=== PATIENT | female | born 1950 | race Caucasian/White ===

== ENCOUNTER 2019-08-28 12:53 | Inpatient (IN) | payer MEDICARE, OTHER, SELFPAY ==
[2019-08-28] VITALS (10 sets, daily range): BP systolic 130–163; BP diastolic 79–100; PULSE 50–178; RESP 13–22; TEMP 36.2–36.8; O2SAT 77–99; BMI 31.4
--- NOTE | ~2019-08-28 | XR_ITS ---
EXAMINATION: XR chest 2V DATE: 08/28/2019 13:57 INDICATION: Shortness of breath TECHNIQUE: AP and lateral views of the chest are obtained. COMPARISON: None available FINDINGS: The lungs are free of acute opacities. There is no pleural effusion or pneumothorax. The ca rdiomediastinal silhouette is normal. There is moderate thoracic spondylosis. IMPRESSION: 1. No acute cardiopulmonary abnormality. Reviewed, dictated and finalized at location A. AEOLOGY PROFESSOR
--- NOTE | ~2019-08-28 | XR_ITS ---
EXAMINATION: XR sinus min 3V DATE: 08/29/2019 13:23 INDICATION: Head congestion. TECHNIQUE: 5 views of the paranasal sinuses were obtained. COMPARISON: None. FINDINGS: Bone alignment is normal. No fracture. The paranasal sinuses are clear. IMPRESSION: 1. Normal paranasal sinuses. Reviewed, dictated and finalized at location A. L WIRE TECHNICIAN
--- NOTE | 2019-08-28 13:02 | ED.GENADULT ---
HPI - General Adult General Chief complaint: Unspecified Stated complaint: New onset afib with rvr Time Seen by Provider: 08/28/19 13:00 Source: patient Mode of arrival: EMS Limitations: no limitations History of Present Illness HPI narrative: A 68 y/o female presents to the ED, via EMS, with c/o generalized weakness. Pt states that she has been having frequent spells of generalized weakness, fatigue, and dizziness every week for a long time. Today the pt notes that the spell started at 1000 and has been constant since, so she decided to come to the ED. She adds that she has had a cold since the end of July. Pt reports cough, congestion, and rhinorrhea, but denies fever and decreased food or liquid intake. She states that she recently had a stress test done, and it came back normal. MD complaint: Generalized weakness Onset (ago): unknown Severity: similar to prior episodes Associated symptoms: cough and other (Fatique, dizziness, congestion, rhinorrhea) Related Data Home Medications Medication Instructions Recorded Confirmed cholecalciferol (vitamin D3) 25 25 mcg PO DAILY 08/28/19 mcg (1,000 unit) capsule levothyroxine 88 mcg tablet 88 mcg PO DAILY 08/28/19 piroxicam 20 mg capsule 20 mg PO DAILY 08/28/19 Allergies Allergy/AdvReac Type Severity Reaction Status Date / Time No Known Allergies Allergy Verified 08/28/19 13:14 Review of Systems Review of Systems: All systems reviewed & are unremarkable except as noted in HPI and below Constitutional: Constitutional: Reports fatigue, Denies fever(s), Reports weakness (Generalized) and Denies other (Decreased food or liquid intake) ENT: Reports nasal congestion and Reports nasal discharge Respiratory: Respiratory: Reports cough Neurologic: Reports dizziness PMFSH Past Medical History Medical History (Updated 08/28/19 @ 15:33 by Zackery Barnes MD) Arthritis Asthma HTN (hypertension) Hypothyroid Umbilical hernia Surgical History Surgical History (Updated 08/28/19 @ 13:16 by Cristina Sales) History of cholecystectomy History of knee replacement, total History of tubal ligation History of ventral hernia repair Family History Family History Father Family history of glaucoma, Onset Age: 46 Grandparent Family history of glaucoma Family history of lung cancer Sibling Family history of glaucoma Family history of malignant neoplasm Mother Family history of malignant melanoma, Onset Age: 72 Social History Social History Smoking status: Never smoker Alcohol intake: never Exam Const: General: healthy appearing and no acute distress Nutritional Appearance: well nourished HENMT: Mouth: Yes lip normal and Yes dry mucous membranes Eyes: Conjunctivae: conjunctivae normal Pupils: Equal, round and reactive pupils present Resp: Effort & Inspection: normal respiratory effort Auscultation: clear to auscultation bilaterally Cardio: Rate: tachycardic Rhythm: abnormal rhythm irregularly irregular GI: GI Palp: Yes Soft to palpation and No Tenderness to palpation present (GI) Auscultation: normal bowel sounds Back/Spine/Pelvis: Back: other (Full ROM) Skin: General skin exam: normal color, dry skin and other (Warm) Neuro: General: patient oriented x3 (Alert) Speech: normal speech Extrem: General: full ROM Psych: Mental Status: mental status grossly normal Affect: normal affect Course Consultations Consultation #1: Discussed case with hospitalist, Dr. Gibbons. They will admit the patient if cardiology declines. Date: 08/28/19 Time: 14:15 Consultation #2: Discussed case with Dottie Armstrong NP for cardiology. They recommend the patient be admitted to the IMU under the hospitalist. Date: 08/28/19 Time: 14:19 Vital Signs Vital signs: Vital Signs Temperature 36.8 C 08/28/19 12:51 Pulse Rate 152 H 08/28/19 12:51
--- NOTE | 2019-08-28 13:07 | ECG_ITS ---
Measurements Intervals [place] Rate: 160 P: MA: 0 QRS: -10 QRSD: 108 T: 56 QT: 310 QTc: 506 Interpretive Statements ATRIAL FIBRILLATION WITH RAPID VENTRICULAR RESPONSE VENTRICULAR PREMATURE COMPLEXES INCOMPLETE RIGHT BUNDLE BRANCH BLOCK BORDERLINE ST-T WAVE ABNORMALITY- LATERAL LEADS BASELINE WANDER- I, II ABNORMAL ECG Electronically Signed On 08-28-2019 13:18:26 DOCK WORKER by Bhavik Damian D.O.
[2019-08-28] MEDS: SODIUM CHLORIDE 0.9% IV 1,000 ML 999 ML IV CONT (13:15)
[2019-08-28 13:18] LABS: Basophils Absolute Auto 0.1 K/mm3 (0.0-0.1); Basophils Percent Auto 0.8 % (0.2-1.2); Eosinophils Absolute Auto 0.1 K/mm3 (0-0.3); Eosinophils Percent Auto 1.5 % (0-4.4); Hematocrit 42.9 % (37.0-47.0); Hemoglobin 13.6 g/dL (12.0-15.0); Immature Granulocyte Absolute 0.01 K/mm3 (0.00-0.031); Immature Granulocyte Percent A 0.2 % (0-0.5); Lymphocytes Absolute Auto 1.72 K/mm3 (0.9-3.2); Lymphocytes Percent Auto 28.7 % (18.3-44.2); Mean Corpuscular HGB Conc 31.7 g/dl (32-36); Mean Corpuscular Hemoglobin 28.4 pg (26-34); Mean Corpuscular Volume 89.6 fl (80-100); Mean Platelet Volume 9.2 fl (7.4-10.4); Monocytes Absolute Auto 0.5 K/mm3 (0.1-0.6); Monocytes Percent Auto 8.3 % (2.6-8.5); Neutrophils Absolute Auto 3.6 K/mm3 (1.3-6.7); Neutrophils Percent Auto 60.5 % (45.5-73.1); Platelet Count Result 230 k/mm3 (150-375); Red Blood Count 4.79 M/mm3 (4.2-5.4); Red Cell Distribution Width 13.3 % (11.5-14.5)
[2019-08-28 13:27] LABS: INR 0.9; Prothrombin Time 12.2 Seconds (11.1-14.7)
[2019-08-28 13:28] LABS: Partial Thromboplastin Time 26.4 SECONDS (22.3-36.8)
[2019-08-28 13:31] LABS: Blood Urea Nitrogen 16 mg/dL (7-17); Calcium 9.2 mg/dL (8.4-10.2); Carbon Dioxide 25 mmol/L (22-30); Chloride 108 mmol/L (98-107); Estimated CRCL calculation 118 ml/min; Estimated Glomerular Filt Rate > 60; Glucose 111 mg/dL (65-105); Potassium 3.9 mmol/L (3.4-5.0); Sodium 142 mmol/L (137-145)
[2019-08-28 13:43] LABS: NT Pro B Type Natriuretic Pept 243 PG/ML (5-100); Troponin I < 0.012 ng/mL (0.000-0.034)
--- NOTE | 2019-08-28 14:19 | PC.NURSE ---
Diltiazem 10mg given IVP as ordered by EDP
[2019-08-28] MEDS: ENOXAPARIN 100 MG/ML SYRINGE SUB-Q ×2 (14:45→21:02)
--- NOTE | 2019-08-28 16:04 | ADMGEN ---
This patient, Liz Overton, was admitted to IMU Room 201-01. Patient/family oriented to hospital policies and general routines including ID bracelet, bed and alarms, visiting hours, pain management, procedures, bathroom and other care routines, personal items, smoking policy, room service/diet, and visiting hours. Valuables list has been completed. Information on how to activate the Rapid Response Team has been discussed. Patient/Family are encouraged to report perceived risks to care and to ask questions if they do not understand what they are told or what they should do.
--- NOTE | 2019-08-28 17:01 | PM.CNCAR ---
Assessment and Plan Assessment and plan (1) Atrial fibrillation with RVR: Code(s): I48.91 - Unspecified atrial fibrillation Status: Acute Assessment and Plan: She has a chads Vasc score of 3 given her age, gender and hypertension. Full anticoagulation is recommended. For now will start her on enoxaparin 1 milligram/kilogram subcu q.12 hours. She is in atrial fibrillation with rapid ventricular response at present. This likely is the cause of her symptoms. She is having these episodes on a daily basis which raises the concern of longer duration of being in her arrhythmia. Therefore I think rate control strategy for tonight should be implemented and therefore will continue her Cardizem but will increase her drip to 15 mg per hour. Will keep her NPO after midnight in case a SHON guided cardioversion needs to be performed tomorrow. She likely will need antiarrhythmic therapy long-term. Will continue rule out myocardial infarction with serial cardiac enzymes. Will check a 2D echocardiogram with Doppler. Outpatient stress test to be performed (2) Hypertension: Code(s): I10 - Essential (primary) hypertension Status: Acute (3) Obstructive sleep apnea: Code(s): G47.33 - Obstructive sleep apnea (adult) (pediatric) Status: Acute Assessment and Plan: Very important that she home as her sleep apnea treated. As an outpatient should set her up with pulmonology or sleep medicine except for re-evaluation and treatment (4) Hypothyroid: Code(s): E03.9 - Hypothyroidism, unspecified Status: Acute Assessment and Plan: On replacement History of Present Illness History of Present Illness Consult date/time: 08/28/19 17:01 Requesting physician: Zackery Barnes MD Consult reason: atrial fibrillation Reason For Visit: a-fib with rvr Narrative: Date of service 08/28/2019: History: Patient is a very pleasant 68-year-old female who has had intermittent spells weakness and dizziness and extreme tiredness over the past year or so. At 1st it would occur about 1 time a month or couple times every few weeks but more recently it is occurring essentially on a daily basis. She does not feel palpitations. She does have a sensation of chest pressure and heaviness whenever she has these feeling. She did have a stress test last year which was reportedly normal per patient. Because of the symptoms she did go to see her primary care physician today. She was found to be in atrial fibrillation with rapid ventricular response and sent to the emergency department for further workup and evaluation. She has been started on diltiazem drip and her heart rate is better but she still feels a little lightheaded/foggy. She otherwise denies any syncope, paroxysmal nocturnal dyspnea, orthopnea, edema shortness of breath or palpitations. She does have a history of hypertension, sleep apnea which she does not use her CPAP often because the mask does not fit her. She also has hypothyroidism hyperlipidemia and arthritis. She has never had a stroke and is not diabetic Review of Systems Review of Systems: All systems reviewed & are unremarkable except as noted in HPI and below Constitutional: Constitutional: Reports weakness Eyes: Eyes: Denies blurry vision ENT: Denies epistaxis Cardiovascular: Cardiovascular: Reports chest pain Respiratory: Respiratory: Denies dyspnea Gastrointestinal: Gastrointestinal: Denies abdominal pain Genitourinary: Genitourinary: Denies flank pain Musculoskeletal: Musculoskeletal: Denies neck pain Comments: Osteoarthritis Integumentary/Breasts: Skin/Breast: Denies dry skin Neurologic: Denies headache(s) Psychiatric: Psychiatric: Denies anxiety Endocrine: Endocrine: Reports fatigue Hematologic/Lymphatic: Hematologic/Lymphatic: Denies easy bleeding Allergic/Immunologic: Allergic/Immunologic: Denies lip swelling PMFSH Past Medical History Medical History (Reviewed
--- NOTE | 2019-08-28 17:44 | ECG_ITS ---
Measurements Intervals [place] Rate: 66 P: 62 [place]: 171 QRS: -41 QRSD: 111 T: 58 QT: 420 QTc: 441 Interpretive Statements SINUS RHYTHM LEFT AXIS DEVIATION INCOMPLETE LEFT BUNDLE BRANCH BLOCK DELAYED PRECORDIAL R/S TRANSITION BORDERLINE ST-T WAVE ABNORMALITY- ANTERIOR LEADS BORDERLINE ECG Electronically Signed On 08-29-2019 12:31:17 MICROFILM DUPLICATING UNIT SUPERVISOR by Bhavik Damian D.O.
[2019-08-28] MEDS: ACETAMINOPHEN 325 MG TABLET 650 MG PO (20:15)
--- NOTE | 2019-08-28 21:31 | PM.IMHP ---
H&P: HPI History of Present Illness Chief complaint: a-fib with rvr Narrative: Liz Overton is a 68 year old female who has been complaining of having some generalized weakness. She is having frequent spells of feeling weak, fatigued and dizziness. The patient stated she felt like she has had a cold since July. She has had a cough congestion and runny nose. But no fever. Patient stated that she had a stress test back in the fall which she reports as normal. She stated that she went to her primary care doctor's office today around noon due to her symptoms. An EKG was performed in the office and the patient was sent directly over to the emergency room here. Patient was found to be in AFib RVR with a new onset. The patient was started on Cardizem drip. Cardiology has seen the patient. Patient had chads vascular score of 3 and was started on therapeutic doses of subcu Lovenox. Patient has since converted to normal sinus rhythm. See cardiology notes please. Patient stated that she is in a sinus rhythm she feels much better. Date of service is 08/28/2019. Review of Systems Review of Systems: All systems reviewed & are unremarkable except as noted in HPI and below Constitutional: Constitutional: Reports as per HPI and Reports no additional constitutional complaints Eyes: Eyes: Reports as per HPI and Reports no additional eye complaints ENT: Reports system reviewed and no additional complaints, except as documented and Reports Normal hearing present Cardiovascular: Cardiovascular: Reports no additional cardiovascular complaints Respiratory: Respiratory: Reports no additional respiratory complaints and Reports no additional respiratory complaints Gastrointestinal: Gastrointestinal: Reports as per HPI and Reports no additional gastrointestinal complaints Musculoskeletal: Musculoskeletal: Reports no additional musculoskeletal complaints Integumentary/Breasts: Skin/Breast: Reports system reviewed and no additional complaints, except as docu and Reports as per HPI Neurologic: Reports system reviewed and no additional complaints, except as documented, Reports as per HPI and Reports Normal hearing present Psychiatric: Psychiatric: Reports no additional psychiatric complaints and Reports as per HPI Endocrine: Endocrine: Reports no additional endocrine complaints Hematologic/Lymphatic: Hematologic/Lymphatic: Reports no additional hematologic/lymphatic complaints Allergic/Immunologic: Allergic/Immunologic: Reports no additional allergic/immunologic complaints [facility] Past Medical History Medical History (Updated 08/28/19 @ 21:40 by Quita Montenegro NP) Arthritis Asthma HTN (hypertension) Hypertension Hypothyroid Obstructive sleep apnea Umbilical hernia Surgical History Surgical History (Updated 08/28/19 @ 21:40 by Quita Montenegro NP) History of cholecystectomy History of knee replacement, total On the right History of tubal ligation History of ventral hernia repair Family History Family History (Updated 08/28/19 @ 21:42 by Quita Montenegro NP) Father Motor vehicle accident He in a motor vehicle accident at the age of 46. Hypertension Grandparent Family history of glaucoma Family history of lung cancer Sibling Breast cancer Diabetes mellitus Mother Family history of malignant melanoma, Onset Age: 72 Social History Social History (Updated 08/28/19 @ 21:43 by Quita Montenegro NP) Social History: She has 3 children and her son Conner is a durable power tax associate attorney. She desires to be a full code. She lives with her who is about 10 years older than her. She is a lifelong nonsmoker and does not drink or use illicit drugs. Patient is retired from [employer]. Smoking status: Never smoker Alcohol intake: never Substance use: never Living arrangements: alone Occupation/Education: retired Gender identity (if verbalized by the
[2019-08-29] VITALS (20 sets, daily range): BP systolic 118–152; BP diastolic 64–85; PULSE 48–88; RESP 12–22; TEMP 35.6–36.6; O2SAT 93–100
--- NOTE | 2019-08-29 | ECHO_ITS ---
Patient Info Name: Liz Overton Age: 68 years : 1950 Gender: Female Ht: 70 in Wt: 219 lbs BSA: 2.24 m2 HR: 55 bpm BP: 126 / 71 mmHg Heart Rhythm: Sinus Rhythm Technical Quality: Good Exam Date: 08/29/2019 10:33 AM Exam Location: [facility] Pulmonary Patient Status: Inpatient Admit Date: 08/28/2019 Staff Ordering Physician: Thien Rascon MD Business Planning Director: Feroz Dao, SATNAMCS, RT Attending Provider: Anita Paul MD Referring Physician: Tarah FRANK; Exam Type: CA echo doppler color flow Study Info Indications I48.0 - Paroxysmal atrial fibrillation Complete two-dimensional, color flow and Doppler transthoracic echocardiogram is performed. Summary 1. Left ventricular systolic function is normal, estimated at 55-60%. 2. The left ventricular diastolic function is grade I diastolic dysfunction. 3. Left atrial chamber dimension is mildly enlarged. 4. Trivial aortic valve regurgitation otherwise no significant valvular abnormalities. Left Ventricle Left ventricular chamber dimension is normal. Left ventricular systolic function is normal, estimated at 55-60%. The left ventricular diastolic function is grade I diastolic dysfunction. Right Ventricle Right ventricular chamber dimension is normal. Left Atria Left atrial chamber dimension is mildly enlarged. Right Atria Right atrial chamber dimension is normal. Aortic Valve The aortic valve is trileaflet. There is trace aortic valve regurgitation. Pulmonic Valve The pulmonic valve is not well visualized. Mitral Valve The mitral valve has normal leaflets. Tricuspid Valve The tricuspid valve leaflets are normal. Pericardium/Pleural The pericardium appears normal. Aorta The aortic root size at the sinus of Valsalva is normal. Left Ventricular Outflow Tract Name Value Normal LVOT 2D LVOT Diameter 2.0 cm LVOT Doppler LVOT Peak Gradient 4 mmHg LVOT Mean Gradient 2 mmHg LVOT VTI 24 cm LVOT VTI/AV VTI Ratio 0.7 LVOT Stroke Volume 72 ml LVOT CO 4.0 l/min LVOT CI 1.8 l/min/m2 Pulmonic Valve Name Value Normal PV Doppler PV Peak Gradient 3 mmHg Mitral Valve Name Value Normal MV Doppler MV Decel Me[place] 295 cm/s2 MV PHT 62 ms MV Area (PHT) 3.5 cm2 4.0-5.0 MV Diastolic Function
[2019-08-29 04:53] LABS: Basophils Percent Auto 0.8 % (0.2-1.2); Eosinophils Absolute Auto 0.2 K/mm3 (0-0.3); Hematocrit 39.7 % (37.0-47.0); Hemoglobin 12.4 g/dL (12.0-15.0); Immature Granulocyte Absolute 0.01 K/mm3 (0.00-0.031); Immature Granulocyte Percent A 0.2 % (0-0.5); Lymphocytes Absolute Auto 2.27 K/mm3 (0.9-3.2); Lymphocytes Percent Auto 45.8 % (18.3-44.2); Mean Corpuscular HGB Conc 31.2 g/dl (32-36); Mean Corpuscular Hemoglobin 28.4 pg (26-34); Mean Corpuscular Volume 91.1 fl (80-100); Mean Platelet Volume 9.3 fl (7.4-10.4); Monocytes Absolute Auto 0.4 K/mm3 (0.1-0.6); Monocytes Percent Auto 8.3 % (2.6-8.5); Neutrophils Absolute Auto 2.1 K/mm3 (1.3-6.7); Neutrophils Percent Auto 41.9 % (45.5-73.1); Platelet Count Result 213 k/mm3 (150-375); Red Blood Count 4.36 M/mm3 (4.2-5.4); Red Cell Distribution Width 13.3 % (11.5-14.5)
[2019-08-29 05:13] LABS: Magnesium 2.2 mg/dL (1.6-2.3)
[2019-08-29] MEDS: LEVOTHYROXINE SODIUM 88 MCG TABLET PO (06:21)
[2019-08-29] MEDS: ENOXAPARIN 100 MG/ML SYRINGE SUB-Q (07:46)
[2019-08-29] MEDS: CHOLECALCIFEROL 1,000 UNIT TABLET 1000 UNITS PO (07:47)
[2019-08-29] MEDS: ACETAMINOPHEN 325 MG TABLET 650 MG PO (11:46)
--- NOTE | 2019-08-29 12:12 | PM.PNCARD ---
Progress Note: A&P Assessment and Plan (1) Atrial fibrillation with RVR: Code(s): I48.91 - Unspecified atrial fibrillation Status: Acute Assessment and Plan: -Chads Vasc score of 3 given her age, gender and hypertension. Full anticoagulation is recommended. Stop enoxaparin. Start Xarelto 20 mg daily with dinner this evening. Case management to check pricing. -Her symptoms are most likely from atrial fibrillation with rapid ventricular response. She states she has been feeling poorly for approximately 1 month. She converted to normal sinus rhythm yesterday evening. Diltiazem drip was discontinued overnight due to bradycardia. -Will start sotalol 40 mg (starting low due to bradycardia) every 12 hours. first dose as soon as it is available from pharmacy. Second dose this evening. Will monitor QTc with serial EKGs. QTc on 08/28/2019 at 17:55:54. -Echocardiogram is pending. -Stress test done on 02/25/2019 was negative for ischemia or infarct. Normal left ventricular ejection fraction measuring 70%. Will not need to repeat a stress test. (2) Hypertension: Qualifiers: Hypertension type: essential hypertension Qualified Code(s): I10 - Essential (primary) hypertension Code(s): I10 - Essential (primary) hypertension Status: Chronic Assessment and Plan: Monitor blood pressure response to sotalol dosing. (3) Obstructive sleep apnea: Code(s): G47.33 - Obstructive sleep apnea (adult) (pediatric) Status: Chronic Assessment and Plan: Very important that she has her sleep apnea treated. As an outpatient should set her up with pulmonology or sleep medicine expert for re-evaluation and treatment (4) Hypothyroid: Qualifiers: Hypothyroidism type: unspecified Qualified Code(s): E03.9 - Hypothyroidism, unspecified Code(s): E03.9 - Hypothyroidism, unspecified Status: Chronic Assessment and Plan: On replacement. TSH within normal limits. Additional Plan Questions answered to satisfaction. and son at bedside. Plan discussed with Dr. Limon [id number] 08/29/2019. Time Spent With Patient Time with patient: less than 15 minutes Subjective Date/time seen: 08/29/19 12:12 Interval history: Follow-up for: Atrial fibrillation with rapid ventricular response hypertension, obstructive sleep apnea, hypothyroidism. Date of service: 08/29/2019 Subjective: Denied chest discomfort, shortness of breath, lightheadedness or palpitations. Still has a cough. Sinus headache. Review of Systems Constitutional: Constitutional: Reports fatigue, Denies headache(s) and Reports weakness Eyes: Eyes: Denies blurry vision ENT: Reports headache(s), Denies lip swelling, Denies epistaxis, Denies neck pain and Reports sinus pressure Cardiovascular: Cardiovascular: Reports chest pain and Denies dyspnea Respiratory: Respiratory: Denies dyspnea Gastrointestinal: Gastrointestinal: Denies abdominal pain Genitourinary: Genitourinary: Denies flank pain Musculoskeletal: Musculoskeletal: Denies neck pain Integumentary/Breasts: Skin/Breast: Denies dry skin Neurologic: Denies headache(s) and Reports weakness Psychiatric: Psychiatric: Denies anxiety Endocrine: Endocrine: Reports fatigue Hematologic/Lymphatic: Hematologic/Lymphatic: Denies easy bleeding Allergic/Immunologic: Allergic/Immunologic: Denies lip swelling Exam Const: General: cooperative and no acute distress Nutritional Appearance: obese Orientation/consciousness: patient oriented x3 Limitations: no limitations HENMT: General nose exam: Normal nares present Eyes: Sclera: sclerae normal Neck: Neck: supple and no JVD Resp: Auscultation: clear to auscultation bilaterally Cardio: Rate: regular rate Rhythm: regular rhythm Peripheral pulses: Peripheral pulses 2+ throughout GI: GI Palp: Yes Sof
--- NOTE | 2019-08-29 13:31 | ECG_ITS ---
Measurements Intervals [place] Rate: 74 P: 77 [place]: 168 QRS: -50 QRSD: 109 T: 62 QT: 399 QTc: 443 Interpretive Statements SINUS RHYTHM LEFT ANTERIOR FASCICULAR BLOCK BORDERLINE ST-T WAVE ABNORMALITY- ANTEROLATERAL LEADS BASELINE ARTIFACT- II, III, AVL, AVF ABNORMAL ECG Electronically Signed On 08-29-2019 14:23:44 FINANCIAL OPERATIONS ANALYST by Bhavik Damian D.O.
[2019-08-29] MEDS: SOTALOL HCL 40 MG TABLET PO (14:25)
--- NOTE | 2019-08-29 14:55 | PM.IMPN ---
Progress Note: A&P Assessment and Plan (1) Atrial fibrillation with RVR: Code(s): I48.91 - Unspecified atrial fibrillation Status: Acute Assessment and Plan: The patient has converted on her own. Cardiology has started sotalol and transitioning anticoagulant for Lovenox to rivaroxaban. (Her Erwin Vasc score was 3). An echo has been done and is pending. She had a stress test approximately last fall she stated it was normal. Patient is in sinus rhythm at this time and is stating that she feels much better. (2) Hypothyroid: Qualifiers: Hypothyroidism type: unspecified Qualified Code(s): E03.9 - Hypothyroidism, unspecified Code(s): E03.9 - Hypothyroidism, unspecified Status: Chronic Assessment and Plan: TSH normal (3) Obstructive sleep apnea: Code(s): G47.33 - Obstructive sleep apnea (adult) (pediatric) Status: Chronic Assessment and Plan: Titrating CPAP machine hs. The patient may need an outpatient evaluation for sleep apnea. She was using her machine when she lost 50 lb she was doing well but recently he has gained back about 30 those lb. She states that her mask does not fit her appropriately. She will need a new mask as well. Subjective Date/time seen: 08/29/19 14:55 Interval history: Date of visit 08/29. 68-year-old white female presented to the emergency room after she visited her primary care for upper respiratory symptoms and was found to be in atrial fibrillation. Here she had the head congestion cough but and AFib RVR. On Cardizem drip she spontaneously converted to sinus rhythm and feels better though still some had stuffiness Exam Narrative: Exam Narrative: Blood pressure 146/84 pulse is 62 and regular afebrile Pupils equal and reactive to light sclera anicteric Lungs clear CV regular rate rhythm no murmurs Abdomen benign Extremities without edema distal pulses are 2+ Objective Data Vital Signs Vital Signs: Vital Signs - 24 hr 08/28/19 15:54 08/28/19 16:00 08/28/19 17:15 Temperature 36.2 C L Pulse Rate 128 H 131 H 50 L Respiratory Rate 18 16 Blood Pressure 130/100 H 163/93 H Pulse Oximetry 98 99 08/28/19 18:00 08/28/19 20:00 08/28/19 22:00 Temperature 36.4 C Pulse Rate 77 71 66 Respiratory Rate 18 Blood Pressure 135/82 Pulse Oximetry 98 08/28/19 22:45 08/29/19 00:00 08/29/19 01:59 Temperature 36.6 C Pulse Rate 60 Respiratory Rate 16 18 12 Blood Pressure 118/77 Pulse Oximetry 93 08/29/19 02:00 08/29/19 04:00 08/29/19 05:44 Temperature 36.3 C L Pulse Rate 61 48 L 48 L Respiratory Rate 16 Blood Pressure 126/71 Pulse Oximetry 98 08/29/19 08:00 08/29/19 08:13 08/29/19 10:00 Temperature 35.6 C L Pulse Rate 62 68 65 Respiratory Rate 20 Blood Pressure 143/64 H Pulse Oximetry 100 08/29/19 11:31 08/29/19 12:00 08/29/19 12:22 Temperature 36.3 C L Pulse Rate 65 58 L 61 Respiratory Rate 20 20 Blood Pressure 147/85 H Pulse Oximetry 100 96 08/29/19 13:59 08/29/19 14:25 Temperature Pulse Rate 88 80 Respiratory Rate Blood Pressure Pulse Oximetry Intake/Output Intake/Output: Intake & Output 08/26/19 08/27/19 08/28/19 08/29/19 23:59 23:59 23:59 23:59 Intake Total 1340 637 Output Total 200 300 Balance 1140 337 Meds/Results Medications: Active Medications Generic Name Dose Route Start Last Admin Trade Name Freq PRN Reason Stop Dose Admin Acetaminophen 650 mg 08/28/19 20:04 08/29/19 11:46 Tylenol Tablet PO 650 mg Q4H PRN Administration Mild Pain (1-3) or Fever Levothyroxine Sodium 88 mcg 08/29/19 06:30 08/29/19 06:21 Synthroid PO 88 mcg DAILY@0630 [facility] Administration Rivaroxaban 20 mg 08/29/19 20:00 Xarelto PO DAILY@1700 [facility] Sotalol HCl 40 mg 08/29/19 12:50 08/29/19 14:25 Betapace PO 40 mg Q12HR [facility] Administration Vitamin D 1,000 unit 08/29/19 09:00 08/29/19 07:47 Vit
[2019-08-29] MEDS: RIVAROXABAN 20 MG TABLET PO (21:18)
[2019-08-30] VITALS (19 sets, daily range): BP systolic 117–149; BP diastolic 69–80; PULSE 41–75; RESP 12–18; TEMP 36.2–37; O2SAT 96–99
[2019-08-30] MEDS: SOTALOL HCL 40 MG TABLET PO ×3 (00:44→20:24)
[2019-08-30] MEDS: LEVOTHYROXINE SODIUM 88 MCG TABLET PO (06:53)
--- NOTE | 2019-08-30 08:00 | ECG_ITS ---
Measurements Intervals [place] Rate: 49 P: 73 [place]: 188 QRS: -40 QRSD: 112 T: 64 QT: 504 QTc: 455 Interpretive Statements SINUS BRADYCARDIA LEFT AXIS DEVIATION INCOMPLETE RIGHT BUNDLE BRANCH BLOCK DELAYED PRECORDIAL R/S TRANSITION BORDERLINE ST-T WAVE ABNORMALITY- ANTEROLAT/LAT LEADS ABNORMAL ECG Electronically Signed On 08-30-2019 17:46:13 [employer] by Bhavik Damian D.O.
[2019-08-30] MEDS: CHOLECALCIFEROL 1,000 UNIT TABLET 1000 UNITS PO (08:43)
--- NOTE | 2019-08-30 10:11 | PM.PNCARD ---
Progress Note: A&P Additional Plan Patient being treated with sotalol and thus far is maintaining sinus rhythm. Sotalol dosage is low because of some asymptomatic sinus bradycardia. Anticipate discharge tomorrow if no problems and no evidence of sotalol related proarrhythmia Subjective Date/time seen: Date of service: 08/30/19 10:11 Interval history: Follow-up visit for management of paroxysmal atrial fibrillation Additional comorbidities include untreated sleep apnea and morbid obesity as well as treated hypothyroidism Exam Const: General: comfortable and no acute distress HENMT: Mouth: Yes moist mucous membranes Eyes: Sclera: sclerae normal Pupils: Equal, round and reactive pupils present Neck: Neck: supple and no JVD Thyroid: thyroid normal Resp: Effort & Inspection: normal respiratory effort Auscultation: clear to auscultation bilaterally Cardio: Rate: regular rate Rhythm: regular rhythm GI: Auscultation: normal bowel sounds Skin: General skin exam: normal color Neuro: Cognition (Neuro): normal cognition Extrem: General: normal to inspection Objective Data Vital Signs Vital Signs: Vital Signs - 24 hr 08/29/19 11:31 08/29/19 12:00 08/29/19 12:22 Temperature 36.3 C L Pulse Rate 65 58 L 61 Respiratory Rate 20 20 Blood Pressure 147/85 H Pulse Oximetry 100 96 08/29/19 13:59 08/29/19 14:25 08/29/19 16:00 Temperature Pulse Rate 88 80 56 L Respiratory Rate Blood Pressure Pulse Oximetry 08/29/19 16:52 08/29/19 18:00 08/29/19 19:27 Temperature 35.7 C L 36.3 C L Pulse Rate 62 58 L 62 Respiratory Rate 22 H 18 Blood Pressure 152/84 H 130/70 Pulse Oximetry 97 96 08/29/19 20:00 08/29/19 22:00 08/29/19 23:05 Temperature Pulse Rate 61 54 L Respiratory Rate 19 Blood Pressure Pulse Oximetry 08/30/19 00:00 08/30/19 00:16 08/30/19 00:44 Temperature 36.4 C Pulse Rate 51 L 51 L 65 Respiratory Rate 18 Blood Pressure 149/80 H Pulse Oximetry 96 08/30/19 01:53 08/30/19 04:00 08/30/19 04:44 Temperature 36.2 C L Pulse Rate 49 L 47 L 42 L Respiratory Rate 18 Blood Pressure 143/70 H Pulse Oximetry 97 08/30/19 05:25 08/30/19 08:00 08/30/19 08:42 Temperature 36.4 C Pulse Rate 41 L 53 L 58 L Respiratory Rate 12 Blood Pressure 123/71 Pulse Oximetry 98 Intake/Output Intake/Output: Intake & Output 08/27/19 08/28/19 08/29/19 08/30/19 23:59 23:59 23:59 23:59 Intake Total 1340 1357 707 Output Total 200 1025 1050 Balance 1140 332 -343 Meds/Results Medications: Active Medications Generic Name Dose Route Start Last Admin Trade Name Freq PRN Reason Stop Dose Admin Acetaminophen 650 mg 08/28/19 20:04 08/29/19 11:46 Tylenol Tablet PO 650 mg Q4H PRN Administration Mild Pain (1-3) or Fever Levothyroxine Sodium 88 mcg 08/29/19 06:30 08/30/19 06:53 Synthroid PO 88 mcg DAILY@0630 [facility] Administration Rivaroxaban 20 mg 08/29/19 20:00 08/29/19 21:18 Xarelto PO 20 mg DAILY@1700 [facility] Administration Sotalol HCl 40 mg 08/30/19 09:00 08/30/19 08:42 Betapace PO 40 mg Q12HR [facility] Administration Vitamin D 1,000 unit 08/29/19 09:00 08/30/19 08:43 Vitamin D PO 1,000 unit DAILY [facility] Administration Radiology Results: ITS Impressions Chest X-Ray 08/28/19 14:04 IMPRESSION: 1. No acute cardiopulmonary abnormality. Sinuses X-Ray 08/29/19 13:56 IMPRESSION: 1. Normal paranasal sinuses. Quality VTE Prophylaxis VTE prophylaxis: pharmacologic ordered
--- NOTE | 2019-08-30 12:42 | PM.IMPN ---
Progress Note: A&P Assessment and Plan (1) Atrial fibrillation with RVR: Code(s): I48.91 - Unspecified atrial fibrillation Status: Acute Assessment and Plan: The patient has converted on her own. Cardiology has started sotalol and transitioned anticoagulant from Lovenox to rivaroxaban. (Her Erwin Vasc score was 3). An echo has been done and is pending. She had a stress test approximately last fall which was normal. Patient is in sinus rhythm at this time and is stating that she feels much better. (2) Hypothyroid: Qualifiers: Hypothyroidism type: unspecified Qualified Code(s): E03.9 - Hypothyroidism, unspecified Code(s): E03.9 - Hypothyroidism, unspecified Status: Chronic Assessment and Plan: TSH normal (3) Obstructive sleep apnea: Code(s): G47.33 - Obstructive sleep apnea (adult) (pediatric) Status: Chronic Assessment and Plan: Titrating CPAP machine hs. The patient may need an outpatient evaluation for sleep apnea. She was using her machine when she lost 50 lb she was doing well but recently he has gained back about 30 those lb. She states that her mask does not fit her appropriately. She will need a new mask as well. Subjective Date/time seen: 08/30/19 12:42 Interval history: Date of visit . 68-year-old white female presented to the emergency room after she visited her primary care for upper respiratory symptoms and was found to be in atrial fibrillation. Here she had the head congestion cough and AFib RVR. On Cardizem drip she spontaneously converted to sinus rhythm and feels better though still some had stuffiness. Sotalol loading Exam Narrative: Exam Narrative: Blood pressure 124/70 pulse is 62 and regular afebrile Pupils equal and reactive to light sclera anicteric Lungs clear CV regular rate rhythm no murmurs Abdomen benign Extremities without edema distal pulses are 2+ Objective Data Vital Signs Vital Signs: Vital Signs - 24 hr 08/29/19 13:59 08/29/19 14:25 08/29/19 16:00 Temperature Pulse Rate 88 80 56 L Respiratory Rate Blood Pressure Pulse Oximetry 08/29/19 16:52 08/29/19 18:00 08/29/19 19:27 Temperature 35.7 C L 36.3 C L Pulse Rate 62 58 L 62 Respiratory Rate 22 H 18 Blood Pressure 152/84 H 130/70 Pulse Oximetry 97 96 08/29/19 20:00 08/29/19 22:00 08/29/19 23:05 Temperature Pulse Rate 61 54 L Respiratory Rate 19 Blood Pressure Pulse Oximetry 08/30/19 00:00 08/30/19 00:16 08/30/19 00:44 Temperature 36.4 C Pulse Rate 51 L 51 L 65 Respiratory Rate 18 Blood Pressure 149/80 H Pulse Oximetry 96 08/30/19 01:53 08/30/19 04:00 08/30/19 04:44 Temperature 36.2 C L Pulse Rate 49 L 47 L 42 L Respiratory Rate 18 Blood Pressure 143/70 H Pulse Oximetry 97 08/30/19 05:25 08/30/19 08:00 08/30/19 08:42 Temperature 36.4 C Pulse Rate 41 L 75 58 L Respiratory Rate 12 Blood Pressure 123/71 Pulse Oximetry 98 08/30/19 10:00 08/30/19 12:00 Temperature Pulse Rate 63 62 Respiratory Rate Blood Pressure Pulse Oximetry Intake/Output Intake/Output: Intake & Output 08/27/19 08/28/19 08/29/19 08/30/19 23:59 23:59 23:59 23:59 Intake Total 1340 1357 707 Output Total 200 1025 1425 Balance 1149 629 -964 Meds/Results Medications: Active Medications Generic Name Dose Route Start Last Admin Trade Name Freq PRN Reason Stop Dose Admin Acetaminophen 650 mg 08/28/19 20:04 08/29/19 11:46 Tylenol Tablet PO 650 mg Q4H PRN Administration Mild Pain (1-3) or Fever Levothyroxine Sodium 88 mcg 08/29/19 06:30 08/30/19 06:53 Synthroid PO 88 mcg DAILY@0630 [facility] Administration Rivaroxaban 20 mg 08/29/19 20:00 08/29/19 21:18 Xarelto PO 20 mg DAILY@1700 [facility] Administration Sotalol HCl 40 mg 08/30/19 09:00 08/30/19 08:42 Betapace PO 40 mg Q12HR [facility] Administration Vitamin D 1,000 unit 08/29/19 0
--- NOTE | 2019-08-30 13:31 | ECG_ITS ---
Measurements Intervals [place] Rate: 54 P: 81 RI: 180 QRS: -60 QRSD: 112 T: 64 QT: 464 QTc: 441 Interpretive Statements SINUS BRADYCARDIA INCOMPLETE LEFT BUNDLE BRANCH BLOCK LEFT ANTERIOR FASCICULAR BLOCK ST-T WAVE ABNORMALITY IN ANTEROLATERAL LEADS- CONSIDER ISCHEMIA ABNORMAL ECG Electronically Signed On 08-30-2019 9:36:01 [employer] by Bhavik Damian D.O.
[2019-08-30] MEDS: RIVAROXABAN 20 MG TABLET PO (17:37)
[2019-08-31] VITALS (9 sets, daily range): BP systolic 139–145; BP diastolic 69–72; PULSE 43–69; RESP 16–19; TEMP 36.3–36.4; O2SAT 98–100
[2019-08-31] MEDS: LEVOTHYROXINE SODIUM 88 MCG TABLET PO (06:35)
--- NOTE | 2019-08-31 08:00 | ECG_ITS ---
Measurements Intervals [place] Rate: 43 P: 71 [place]: 182 QRS: -56 QRSD: 114 T: 51 QT: 479 QTc: 406 Interpretive Statements SINUS BRADYCARDIA INCOMPLETE RIGHT BUNDLE BRANCH BLOCK LEFT ANTERIOR FASCICULAR BLOCK CONSIDER INFERIOR INFARCT, AGE INDETERMINATE BORDERLINE ST-T WAVE ABNORMALITY- ANTEROLAT/LAT LEADS ABNORMAL ECG Electronically Signed On 08-31-2019 9:19:16 [employer] by Bhavik Damian D.O.
[2019-08-31] MEDS: CHOLECALCIFEROL 1,000 UNIT TABLET 1000 UNITS PO (08:02)
[2019-08-31] MEDS: SOTALOL HCL 40 MG TABLET PO (08:02)
--- NOTE | 2019-08-31 10:37 | PM.PNCARD ---
Progress Note: A&P Additional Plan 68-year-old white female with paroxysmal atrial fibrillation doing well and maintaining sinus rhythm low-dose sotalol. Patient has had 5 doses of with no evidence of drug related proarrhythmia or significant QT prolongation. Recommend discharge to home and will ensure that she has office follow-up scheduled when the office is open again tomorrow on Sunday morning Time Spent With Patient Time with patient: 15 - 25 minutes Subjective Date/time seen: Date of service: 08/31/19 10:37 Interval history: Follow-up visit for paroxysmal atrial fibrillation now being treated with sotalol. Patient asymptomatic this morning feels well maintaining sinus rhythm and would like to be discharged. Exam Const: General: comfortable and no acute distress HENMT: Mouth: Yes moist mucous membranes Eyes: Sclera: sclerae normal Pupils: Equal, round and reactive pupils present Neck: Neck: supple and no JVD Thyroid: thyroid normal Resp: Effort & Inspection: normal respiratory effort Auscultation: clear to auscultation bilaterally Cardio: Rate: regular rate Rhythm: regular rhythm GI: Auscultation: normal bowel sounds Skin: General skin exam: normal color Extrem: General: normal to inspection Objective Data Vital Signs Vital Signs: Vital Signs - 24 hr 08/30/19 12:00 08/30/19 14:39 08/30/19 16:00 Temperature 37.0 C 36.4 C L Pulse Rate 58 L 58 L 52 L Respiratory Rate 16 16 Blood Pressure 146/76 H 126/76 Pulse Oximetry 99 98 08/30/19 18:00 08/30/19 20:00 08/30/19 20:24 Temperature 36.3 C L Pulse Rate 54 L 64 63 Respiratory Rate 16 Blood Pressure 117/69 Pulse Oximetry 96 08/30/19 21:45 08/30/19 23:34 08/30/19 23:37 Temperature 36.2 C L Pulse Rate 55 L 45 L Respiratory Rate 16 17 Blood Pressure 138/72 Pulse Oximetry 98 08/31/19 00:00 08/31/19 01:45 08/31/19 03:00 Temperature Pulse Rate 43 L 46 L Respiratory Rate 19 Blood Pressure Pulse Oximetry 08/31/19 04:00 08/31/19 04:17 08/31/19 05:59 Temperature 36.3 C L Pulse Rate 57 L 44 L 46 L Respiratory Rate 18 Blood Pressure 145/69 H Pulse Oximetry 98 08/31/19 08:00 08/31/19 08:02 08/31/19 10:02 Temperature 36.4 C L Pulse Rate 69 53 L 58 L Respiratory Rate 16 Blood Pressure 139/72 Pulse Oximetry 100 Intake/Output Intake/Output: Intake & Output 08/28/19 08/29/19 08/30/19 08/31/19 23:59 23:59 23:59 23:59 Intake Total 1340 1357 1777 680 Output Total 200 1025 2925 1300 Balance 1140 332 -1491 -652 Meds/Results Medications: Active Medications Generic Name Dose Route Start Last Admin Trade Name Freq PRN Reason Stop Dose Admin Acetaminophen 650 mg 08/28/19 20:04 08/29/19 11:46 Tylenol Tablet PO 650 mg Q4H PRN Administration Mild Pain (1-3) or Fever Levothyroxine Sodium 88 mcg 08/29/19 06:30 08/31/19 06:35 Synthroid PO 88 mcg DAILY@0630 [facility] Administration Rivaroxaban 20 mg 08/29/19 20:00 08/30/19 17:37 Xarelto PO 20 mg DAILY@1700 [facility] Administration Sotalol HCl 40 mg 08/30/19 09:00 08/31/19 08:02 Betapace PO 40 mg Q12HR [facility] Administration Vitamin D 1,000 unit 08/29/19 09:00 08/31/19 08:02 Vitamin D PO 1,000 unit DAILY [facility] Administration Radiology Results: ITS Impressions Chest X-Ray 08/28/19 14:04 IMPRESSION: 1. No acute cardiopulmonary abnormality. Sinuses X-Ray 08/29/19 13:56 IMPRESSION: 1. Normal paranasal sinuses. Quality VTE Prophylaxis VTE prophylaxis: pharmacologic ordered
--- NOTE | 2019-08-31 16:13 | PM.DS ---
DS: Diagnosis Admitting Diagnosis Admitting Diagnosis: Unspecified atrial fibrillation Discharge Diagnosis (1) Atrial fibrillation with RVR: Code(s): I48.91 - Unspecified atrial fibrillation Status: Acute Assessment and Plan: The patient converted on her own. Cardiology has started sotalol and transitioned anticoagulant from Lovenox to rivaroxaban. (Her Erwin Vasc score was 3). An echo revealed normal EF 50-55%, with no valve dysfunction.. She had a stress test approximately last fall which was normal. Patient is in sinus rhythm at this time and is stating that she feels much better. Discharged home 08/30 on the Xarelto 20 and sotalol 40 b.i.d. (2) Hypothyroid: Qualifiers: Hypothyroidism type: unspecified Qualified Code(s): E03.9 - Hypothyroidism, unspecified Code(s): E03.9 - Hypothyroidism, unspecified Status: Chronic Assessment and Plan: TSH normal continue usual thyroid replacement (3) Obstructive sleep apnea: Code(s): G47.33 - Obstructive sleep apnea (adult) (pediatric) Status: Chronic Assessment and Plan: Titrating CPAP machine hs while inpatient. The patient may need an outpatient evaluation for sleep apnea. She was using her machine when she lost 50 lb she was doing well but recently he has gained back about 30 those lb. She states that her mask does not fit her appropriately. She will need a new mask as well. DS: Summary Hospital Course Hospital Course: 68-year-old white female who had visited her primary care's office today of admission for malaise and continued upper respiratory infection symptoms. She is found to be in atrial fib with rapid ventricular response and referred to the hospital for evaluation. She converted spontaneously to sinus rhythm on diltiazem and was transitioned to sotalol for prevention. Echo showed no valvular or structural abnormalities with a ejection fraction of 50-55%. Placed on Xarelto for anticoagulation Follow-up with primary care within the next 2-3 weeks and heart care group within the next 3-4 weeks Time Spent with Patient Time attestation: Total time spent providing and/or coordinating discharge services: 35 minutes Exam Narrative: Exam Narrative: Condition on discharge Blood pressure 140/72 pulse 60 and regular Lungs clear CV regular rate rhythm no murmurs Abdomen soft nontender Extremities without edema good distal pulses Discharge Plan Discharge Attending physician on discharge: Yannick Servin Consulting providers: Park Ram Discharging Clinician: Yannick Servin Patient Disposition: Home, Self-Care Activity: as tolerated Diet: low sodium Patient Instructions: Antibiotic Form, Sotalol (By mouth), Rivaroxaban (By mouth), A-fib (Atrial Fibrillation) (DC) Stand Alone Forms: General Discharge Information Follow-up/Referrals: Thien Rascon MD [Physician] - 3 Weeks Discharge Medications: New Xarelto 20 mg Tablet 20 mg PO DAILY@1700 Qty: 30 RF: 0 sotalol 80 mg tablet 40 mg PO Q12HR Qty: 30 RF: 0 Continued levothyroxine 88 mcg tablet 88 mcg PO DAILY RF: 0 cholecalciferol (vitamin D3) [Vitamin D3] 25 mcg (1,000 unit) capsule 25 mcg PO DAILY RF: 0 Discontinued piroxicam 20 mg capsule 20 mg PO DAILY RF: 0 Date of admission: 08/28/19 15:21 Primary Care Provider: Paola Orellana Admitting Provider: Anita Paul Discharge Date/Time: 08/31/19 11:55 Attending physician on admission: Anita Paul Condition: Stable Quality VTE Prophylaxis VTE prophylaxis: pharmacologic ordered
== END 2019-08-31 11:55 | disposition home or self-care (01) | DRG 310 ==
LOC: ANHED 15:33 → ANHIMU 15:54
PROVIDERS: Nurse Practitioner; Admitting Provider Hospitalist; Emergency Provider Emergency Medicine; PCP Family Medicine; Visit Provider Internal Medicine
DX: I48.91 Unspecified atrial fibrillation (principal); R00.1 Bradycardia, unspecified; E03.9 Hypothyroidism, unspecified; G47.33 Obstructive sleep apnea (adult) (pediatric); M19.90 Unspecified osteoarthritis, unspecified site; D64.9 Anemia, unspecified; I10 Essential (primary) hypertension; E78.5 Hyperlipidemia, unspecified; J45.909 Unspecified asthma, uncomplicated; Z90.49 Acquired absence of other specified parts of digestive tract; Z96.651 Presence of right artificial knee joint
CPT/HCPCS: 36415; 70220; 71046; 80048; 83735; 83880; 84443; 84484; 85025; 85610; 85730; 87804; 93005; 93306; 96361; 96365; 96366; 96372; 96376; 99285; A9270; J1650; J7030

== ENCOUNTER 2019-12-25 12:30 | Observation (INO) | payer MEDICARE, OTHER, SELFPAY ==
[2019-12-25] VITALS (12 sets, daily range): BP systolic 103–128; BP diastolic 54–78; PULSE 68–150; RESP 15–22; TEMP 36.4–36.8; O2SAT 95–99
--- NOTE | ~2019-12-25 | XR_ITS ---
EXAMINATION: XR chest 1V portable EXAM DATE: 12/25/2019 13:52 INDICATION: Weakness. TECHNIQUE: Portable AP frontal chest x-ray was obtained. Comparison is made to prior examination from 08/28/2019. FINDINGS: The lungs are clear. There are no pleural effusions. Cardiac silhouette is prominent but magnified on this AP technique. There is no pneumothorax suspected. There are mild bony degenerati ve changes. Mild hyperinflation. IMPRESSION: No acute cardiopulmonary findings. Reviewed, dictated and finalized at location B.
--- NOTE | 2019-12-25 12:37 | ED.ARRPALP ---
HPI - Arrhythmia/Palpitations General Chief Complaint: Arrhythmia/Palpitations Stated Complaint: from Dr. Rascon office, AF w/RVR Time Seen by Provider: 12/25/19 12:34 History of Present Illness HPI narrative: Sent from Dr. Rascon's office for atrial fibrillation with RVR. She is anticoagulated and he wanted to perform a cardioversion, but was not able to due to restrictions caused by COVID-19. She c/o fatigue, ALMAGUER intermittently for months. She is not able to tell if this correlates with a-fib/tachycardia. No chest pain, fever, nausea, vomiting, diarrhea, dysuria. Related Data Home Medications Medication Instructions Recorded Confirmed cholecalciferol (vitamin D3) 25 25 mcg PO DAILY 08/28/19 12/25/19 mcg (1,000 unit) capsule Allergies Allergy/AdvReac Type Severity Reaction Status Date / Time No Known Allergies Allergy Verified 08/28/19 13:14 Review of Systems Review of Systems: All systems reviewed & are unremarkable except as noted in HPI and below PMFSH Past Medical History Medical History Arthritis Asthma HTN (hypertension) Hypertension Hypothyroid Obstructive sleep apnea Umbilical hernia Surgical History Surgical History History of cholecystectomy History of knee replacement, total On the right History of tubal ligation History of ventral hernia repair Family History Family History Father Motor vehicle accident He in a motor vehicle accident at the age of 46. Hypertension Grandparent Family history of glaucoma Family history of lung cancer Sibling Breast cancer Diabetes mellitus Mother Family history of malignant melanoma, Onset Age: 72 Social History Social History Social History: She has 3 children and her son Conner is a durable power attorney law clerk. She desires to be a full code. She lives with her who is about 10 years older than her. She is a lifelong nonsmoker and does not drink or use illicit drugs. Patient is retired from [employer]. Smoking status: Never smoker Alcohol intake: unknown Substance use: never Gender identity (if verbalized by the patient): Female Spiritual care concerns: No Agree to blood products: Yes Exam Const: General: no acute distress and alert Nutritional Appearance: obese Orientation/consciousness: patient oriented x3 HENMT: Head: normal to inspection Neck: Neck: normal visual inspection and no lymphadenopathy Chest: Chest palpation & inspection: no tenderness Resp: Effort & Inspection: normal respiratory effort Auscultation: clear to auscultation bilaterally, no rales, no rhonchi and no wheezes Cardio: Jugular venous distension: no JVD Rate: tachycardic Rhythm: abnormal rhythm irregularly irregular Heart sounds: no murmurs GI: Inspection: non-distended GI Palp: Yes Soft to palpation and No Tenderness to palpation present (GI) Skin: General skin exam: normal color Neuro: General: patient oriented x3 and moves all extremities Speech: normal speech Extrem: General: edema (trace) Psych: Appearance: well kempt Affect: normal affect Course Vital Signs Vital signs: Vital Signs Pulse Rate 107 H 12/25/19 13:14 Blood Pressure 109/71 12/25/19 13:14 Temperature 36.8 C 12/25/19 19:06 Pulse Rate 68 12/25/19 19:06 Respiratory Rate 16 12/25/19 19:06 Blood Pressure 126/73 12/25/19 19:06 Pulse Oximetry 98 12/25/19 19:06 MDM - Arrhythmia/Palpitations MDM Narrative Medical decision making narrative: Symptoms most likely due to a-fib. Difficult to know for sure given non-specific history. Rate control achieved with diltiazem drip. Will admit to the hospitalist with Cardiology consult. Medical Records Attestatio
--- NOTE | 2019-12-25 12:55 | ECG_ITS ---
Measurements Intervals [place] Rate: 136 P: [place]: 0 QRS: -16 QRSD: 101 T: 16 QT: 327 QTc: 493 Interpretive Statements ATRIAL FLUTTER/TACHYCARDIA WITH RAPID VENTRICULAR RESPONSE VENTRICULAR PREMATURE COMPLEXES INCOMPLETE RIGHT BUNDLE BRANCH BLOCK DELAYED PRECORDIAL R/S TRANSITION BORDERLINE ST-T WAVE ABNORMALITY- INF/LAT LEADS BASELINE ARTIFACT- II, V1-V2 ABNORMAL ECG Electronically Signed On 12-25-2019 15:44:04 CDT by Bhavik Damian D.O.
[2019-12-25 13:55] LABS: Basophils Percent Auto 0.8 % (0.2-1.2); Eosinophils Absolute Auto 0.1 K/mm3 (0-0.3); Eosinophils Percent Auto 1.4 % (0-4.4); Hematocrit 41.4 % (37.0-47.0); Hemoglobin 13.3 g/dL (12.0-15.0); Immature Granulocyte Absolute 0.02 K/mm3 (0.00-0.031); Immature Granulocyte Percent A 0.4 % (0-0.5); Lymphocytes Absolute Auto 1.48 K/mm3 (0.9-3.2); Lymphocytes Percent Auto 29.4 % (18.3-44.2); Mean Corpuscular HGB Conc 32.1 g/dl (32-36); Mean Corpuscular Hemoglobin 29.2 pg (26-34); Mean Platelet Volume 9.5 fl (7.4-10.4); Monocytes Absolute Auto 0.6 K/mm3 (0.1-0.6); Monocytes Percent Auto 10.9 % (2.6-8.5); Neutrophils Absolute Auto 2.9 K/mm3 (1.3-6.7); Neutrophils Percent Auto 57.1 % (45.5-73.1); Platelet Count Result 221 k/mm3 (150-375); Red Blood Count 4.55 M/mm3 (4.2-5.4); Red Cell Distribution Width 13.3 % (11.5-14.5)
[2019-12-25 14:05] LABS: Prothrombin Time 13.2 Seconds (11.1-14.7)
[2019-12-25 14:06] LABS: Partial Thromboplastin Time 28.6 SECONDS (22.3-36.8)
[2019-12-25 14:08] LABS: Alanine Aminotransferase 17 U/L (4-35); Albumin Level 4.1 g/dL (3.5-5.1); Alkaline Phosphatase 78 U/L (38-126); Aspartate Amino Transferase 20 U/L (14-36); Bilirubin,Total 0.2 mg/dL (0.2-1.3); Blood Urea Nitrogen 17 mg/dL (7-17); Calcium 9.1 mg/dL (8.4-10.2); Carbon Dioxide 27 mmol/L (22-30); Chloride 109 mmol/L (98-107); Estimated Glomerular Filt Rate > 60; Glucose 106 mg/dL (65-105); Lactic Acid Reflex 0.8 mmol/L (0.7-2.1); Potassium 4.1 mmol/L (3.4-5.0); Sodium 141 mmol/L (137-145)
[2019-12-25 14:20] LABS: Troponin I < 0.012 ng/mL (0.000-0.034)
[2019-12-25 15:23] LABS: Thyroid Stimulating Hormone Reflex 0.705 uIU/mL (0.465-4.68)
[2019-12-25 15:44] LABS: Add Urine Microscopic? YES; Appearance Urine Clear (Clear); Bilirubin Urine Negative (Negative); Blood Urine 1+ (Negative); Color Urine Straw (Yellow); Glucose Urine UA Negative (Negative); Ketones Urine Trace mg/dL (Negative); Leukocyte Esterase Ur Negative LEU/UL (Negative); Mucus Urine Rare /lpf; Nitrate Urine Negative (Negative); Protein Urine Negative (Negative); Specific Grav Ur 1.013 (1.001-1.035); Squamous Epithelial Cell Urine Occasional /hpf (Few); Urobilinogen Urine Negative mg/dL (<2.0); WBC Urine 0-3 /hpf
--- NOTE | 2019-12-25 18:55 | ADMGEN ---
This patient, Liz Overton, was admitted to IMU Room 212-01 AT 1855. Patient/family oriented to hospital policies and general routines including ID bracelet, bed and alarms, visiting hours, pain management, procedures, bathroom and other care routines, personal items, smoking policy, room service/diet, and visiting hours. Valuables list has been completed. Information on how to activate the Rapid Response Team has been discussed. Patient/Family are encouraged to report perceived risks to care and to ask questions if they do not understand what they are told or what they should do.
--- NOTE | 2019-12-25 20:20 | WPDCN ---
Assessment and Plan Assessment and plan (1) Atrial fibrillation with RVR: Code(s): I48.91 - Unspecified atrial fibrillation Status: Acute Assessment and Plan: Patient with paroxysmal AFib, with another sustained episode of AFib RVR. Heart rate is better on Cardizem. I will increase the sotalol from 40 mg b.i.d. to 80 mg b.i.d.. If the patient has not converted by tomorrow, we will proceed with cardioversion. She has not missed any doses of Xarelto. Will monitor daily EKGs, probably discharge Sunday on increased dose of sotalol. Outpatient stress test. Possible referral to EP for consideration of ablation Patient is upset and wonders why she keeps having problems with recurrent atrial fibrillation. Counseled patient about the nature of AFib which likes to be recurrent, treatments available, no treatment is 100% effective, etc.. (2) Hypertension: Qualifiers: Hypertension type: essential hypertension Qualified Code(s): I10 - Essential (primary) hypertension Code(s): I10 - Essential (primary) hypertension Status: Chronic Assessment and Plan: Blood pressure controlled (3) Chronic anticoagulation: Code(s): Z79.01 - [facility] (current) use of anticoagulants Status: Acute Assessment and Plan: Taking Xarelto (4) Medication monitoring encounter: Code(s): Z51.81 - Encounter for therapeutic drug level monitoring Status: Acute Assessment and Plan: Will need to monitor QT interval especially since we just increased the dose. Daily EKGs. Explained this to pt and the need to avoid other meds that prolong the QT interval such as erythromycin, Z-lucia, lavaquin, Cipro, etc . HPI Data of Consult Date/Time: 12/25/19 20:20 Requesting Physician: Ashlyn Saldivar MD Primary Care Provider: Paola Orellana MD Consult Narrative Narrative: Date of service: 12/25/2019 Liz Overton is a 69 year old female whom I was asked to see at the request of Dr. Saldivar for my advice and opinion regarding her paroxysmal atrial fibrillation with rapid ventricular response in consultation. Mrs. Overton was initially admitted for AFib RVR in August 2019 when she was started on Xarelto and low-dose sotalol 40 mg b.i.d. due to low heart rate. She has felt episodes which she thought she may be back in atrial fibrillation off and on, usually lasting for day or so. She feels weak, tired, nauseated and has polyuria when she has these spells as well as some mild chest discomfort. Today the patient came to see Dr. Rascon in the office, feeling the same weakness, tiredness and nausea and she was found to be in AFib with rapid ventricular response She was sent to the emergency room started on a Cardizem drip. She is feeling better now that her heart rate is in the the 80-90's, but not normal. She has been taking her Xarelto and has not missed any doses. Echo in August showed EF of 55-60%, diastolic dysfunction, mild left atrial enlargement, no valve disease. Review of Systems Constitutional: Constitutional: Reports fatigue and Reports lethargy Eyes: Eyes: Reports no additional eye complaints ENT: Denies epistaxis Cardiovascular: Cardiovascular: Denies chest pain, Reports pedal edema, Reports lightheadedness and Denies palpitations Respiratory: Respiratory: Denies chest congestion, Reports dyspnea and Reports dyspnea on exertion Gastrointestinal: Gastrointestinal: Reports abdominal pain (gas), Denies hematochezia, Reports nausea and Denies hematemesis Genitourinary: Genitourinary: Denies hematuria Musculoskeletal: Musculoskeletal: Reports arthralgias Neurologic: Denies confusion Psychiatric: Psychiatric: Denies behavioral changes [facility] Past Medical History Medical History (Updated 12/25/19 @ 20:50 by Isela Cohen MD)
[2019-12-25] MEDS: SOTALOL HCL 80 MG TABLET PO (21:17)
--- NOTE | 2019-12-25 21:30 | PM.IMHP ---
H&P: HPI History of Present Illness Chief complaint: ATRIAL FIBRILLATION W/RVR Narrative: Liz Overton is a 69-year-old female with paroxysmal atrial fibrillation, obstructive sleep apnea, and hypothyroidism who presented to the emergency department earlier this afternoon from Dr. Rascon is office for further treatment and evaluation of atrial fibrillation with rapid ventricular response. She was initially found to be in atrial fibrillation in August 2019 and at that time she was started on rivaroxaban and low-dose sotalol at 40 milligrams twice daily, due to relatively low heart rate. On occasion she believes she may go into atrial fibrillation for a brief period of time and that typically manifests as shortness of breath, fatigue, and very rarely feelings of racing heart. These symptoms have increased over the last month and now she will intermittently have midsternal chest heaviness with nausea and shortness of breath in addition to fatigue. Today, she had a routine follow-up appoint with Dr. Rascon and she was found to be in AFib/RVR. In the emergency department she was started on a Cardizem drip and is now back in a normal sinus rhythm. She states compliance with her medications and CPAP. She does not consume significant quantities of caffeine or alcohol. She has no complaints at the time my evaluation and specifically denies current chest pain and pleuritic pain. She is not feeling short of breath at this time. She ate dinner without issue and she is not having any nausea. She denies sweats. Review of Systems Review of Systems: Narrative: Twelve systems were reviewed with pertinent positives and negatives as per HPI. No fever, chills, or sweats. No recent cold or flu symptoms. She has chronic rhinorrhea which she attributes to environmental allergies. No cough. She denies recent travel and sick contacts. She states compliance with her CPAP. She does not recall the last time she had her thyroid levels checked. Weight has remained relatively stable. Except as documented, all other systems were reviewed and are negative. [facility] Past Medical History Medical History (Updated 12/26/19 @ 01:15 by Jennie Awan PA-C) Arthritis Asthma Chronic anticoagulation Hypertension Hypertension Hypothyroid Obstructive sleep apnea on CPAP Paroxysmal atrial fibrillation Umbilical hernia Surgical History Surgical History (Updated 12/26/19 @ 01:15 by Jennie Awan PA-C) History of cholecystectomy History of right knee joint replacement History of tubal ligation History of ventral hernia repair Family History Family History Father Motor vehicle accident He in a motor vehicle accident at the age of 46. Hypertension Grandparent Family history of glaucoma Family history of lung cancer Sibling Breast cancer Diabetes mellitus Mother Family history of malignant melanoma, Onset Age: 72 Social History Social History (Updated 12/26/19 @ 01:16 by Jennie Awan PA-C) Social History: The patient is and lives at home with her , Spencer. They have 3 grown children. 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 She is a lifelong nonsmoker and denies alcohol and illicit substance use. She designates her son, Conner, as her healthcare power of consumer attorney and she wishes to be a full code. Spiritual care concerns: No Agree to blood products: Yes Meds Home Medications and Allergies Home Medications Medication Instructions Recorded Confirmed Type cholecalciferol (vitamin D3) 25 25 mcg PO DAILY 08/28/19 12/25/19 History mcg (1,000 unit) capsule rivaroxaban [Xarelto] 20 mg PO DAILY@1700 #30 tablet 08/31/19 12/25/19 Rx sotalol 40 mg PO Q12HR #30 tablet 08/31/19 12/25/19 Rx levothyroxine 88 mcg tablet 88 mcg PO DAILY #90 tablet 12/16/19 12/25/19 Rx Allergies Allergy/AdvReac Type Severity R
[2019-12-26] VITALS (10 sets, daily range): BP systolic 98–118; BP diastolic 52–87; PULSE 48–125; RESP 15–18; TEMP 36.1–36.9; O2SAT 94–98
[2019-12-26 02:20] LABS: Blood Urea Nitrogen 16 mg/dL (7-17); Calcium 8.6 mg/dL (8.4-10.2); Carbon Dioxide 28 mmol/L (22-30); Estimated Glomerular Filt Rate > 60; Glucose 113 mg/dL (65-105)
[2019-12-26 02:58] LABS: Chloride 107 mmol/L (98-107); Potassium 3.9 mmol/L (3.4-5.0); Sodium 137 mmol/L (137-145)
[2019-12-26] MEDS: SOTALOL HCL 80 MG TABLET PO (08:06)
--- NOTE | 2019-12-26 08:39 | PM.PNCARD ---
Progress Note: A&P Assessment and Plan (1) Paroxysmal atrial fibrillation: Code(s): I48.0 - Paroxysmal atrial fibrillation Status: Acute Assessment and Plan: Converted to sinus bradycardia. Sotalol was increased yesterday from 40 mg b.i.d. to 80 mg b.i.d. obtain EKG in a couple hours from now to assess QTC interval. continue Xarelto. if QTC interval looks normal and patient is doing well she can be discharged home. (2) Chronic anticoagulation: Code(s): Z79.01 - long term care phlebotomist (current) use of anticoagulants Status: Acute Assessment and Plan: Continue Xarelto (3) Hypertension: Qualifiers: Hypertension type: essential hypertension Qualified Code(s): I10 - Essential (primary) hypertension Code(s): I10 - Essential (primary) hypertension Status: Chronic Assessment and Plan: blood pressure is controlled. Subjective Date/time seen: Date of service :12/26/19 08:39 chief complaint atrial fibrillation. converted to sinus bradycardia heart rate 45 beats per minute. Doing well. Feels tired. Review of Systems Constitutional: Constitutional: Denies chills, Denies fever(s), Reports lethargy, Reports malaise and Denies poor appetite Eyes: Eyes: Denies eye discharge, Denies loss of vision, Denies eye pain and Denies photophobia ENT: Denies dizziness, Denies epistaxis, Denies nasal congestion and Denies sore throat Cardiovascular: Cardiovascular: Denies chest pain, Denies syncope, Denies pedal edema, Denies leg edema, Denies palpitations, Denies dyspnea, Denies dyspnea on exertion and Denies orthopnea Respiratory: Respiratory: Denies cough, Denies dyspnea, Denies dyspnea on exertion and Denies wheezing Gastrointestinal: Gastrointestinal: Denies abdominal pain, Denies diarrhea, Denies nausea and Denies vomiting Genitourinary: Genitourinary: Denies hematuria, Denies genital lesions and Denies dysuria Musculoskeletal: Musculoskeletal: Denies arthralgias, Denies joint swelling and Denies numbness Integumentary/Breasts: Skin/Breast: Denies pruritus and Denies rash Neurologic: Denies dizziness, Denies syncope, Denies loss of vision and Denies numbness Psychiatric: Psychiatric: Denies anxiety and Denies depression Endocrine: Endocrine: Denies cold intolerance, Denies heat intolerance and Denies palpitations Hematologic/Lymphatic: Hematologic/Lymphatic: Denies easy bleeding and Denies easy bruising Allergic/Immunologic: Allergic/Immunologic: Denies urticaria and Denies wheezing Exam Const: General: cooperative, comfortable, no acute distress, alert and awake Nutritional Appearance: well nourished Orientation/consciousness: patient oriented x3 HENMT: Head: normal to inspection, normocephalic and atraumatic Ears: hearing grossly normal bilaterally General nose exam: Normal external nose present, Normal nares present and no nasal discharge noted Face and sinus: normal facial exam and no erythema Mouth: No drooling and No restricted motion Throat: uvula midline Eyes: General: appearance normal, both eyes and all related structures Alignment and Position: position normal Conjunctivae: conjunctivae normal Sclera: sclerae normal Direct Ophthalmoscopy: No photophobia Neck: Neck: normal visual inspection and no JVD Thyroid: thyroid normal Carotids: no bruits Lymphatic: lymphedema not noted Chest: Chest palpation & inspection: normal inspection of the chest and no tenderness Resp: Effort & Inspection: normal respiratory effort and no nasal flaring Auscultation: clear to auscultation bilaterally, no crackles, no rales and no wheezes Cardio: Jugular venous distension: no JVD Rate: regular rate Rhythm: regular rhythm Heart sounds: S1 normal heart sound present, S2 normal heart sound present, no gallops, no murmurs and no rubs GI: Inspection: non-distended GI Palp: No abdominal tenderness and No Soft to palpation Auscultation: normal bowel sounds Recta
--- NOTE | 2019-12-26 10:00 | ECG_ITS ---
Measurements Intervals [place] Rate: 44 P: 57 ND: 189 QRS: -38 QRSD: 108 T: 128 QT: 545 QTc: 467 Interpretive Statements SINUS BRADYCARDIA LEFT AXIS DEVIATION INCOMPLETE RIGHT BUNDLE BRANCH BLOCK DELAYED PRECORDIAL R/S TRANSITION T WAVE ABNORMALITY IN ANTEROLATERAL LEADS- CONSIDER ISCHEMIA ABNORMAL ECG Electronically Signed On 12-26-2019 10:20:33 CDT by Bhavik Damian D.O.
--- NOTE | 2019-12-26 13:17 | PM.DS ---
DS: Admitting Diagnosis Admitting Diagnosis Admitting Diagnosis: Unspecified atrial fibrillation DS: Discharge Diagnosis Discharge Diagnosis (1) Atrial fibrillation with RVR: Code(s): I48.91 - Unspecified atrial fibrillation Status: Acute Assessment and Plan: She converted to normal sinus rhythm after being started on a Cardizem drip in the emergency department. Cardizem drip has been discontinued and her sotalol dose was increased per Dr. Cohen. Patietn having asymptomatic bradycardia; QTc 467 and cardilogy aware. (2) Obstructive sleep apnea on CPAP: Code(s): G47.33 - Obstructive sleep apnea (adult) (pediatric); Z99.89 - Dependence on other enabling machines and devices Status: Acute Assessment and Plan: CPAP was provided for her during her hospitalization. (3) Hypothyroid: Qualifiers: Hypothyroidism type: unspecified Qualified Code(s): E03.9 - Hypothyroidism, unspecified Code(s): E03.9 - Hypothyroidism, unspecified Status: Chronic Assessment and Plan: TSH normal. Continue levothyroxine. (4) Chronic anticoagulation: Code(s): Z79.01 - superintendent marine oil terminal (current) use of anticoagulants Status: Acute Assessment and Plan: Rivaroxaban. DS: Summary Hospital Course Reason for hospitalization: 69yo female with known AFib sent in from Cardiology clinic for recurrent AFib. Please see H&P for details Hospital Course: As above Time Spent with Patient Time attestation: Total time spent providing and/or coordinating discharge services: 32 minutes Time spent: Greater than 30 minutes Exam Narrative: Exam Narrative: AF 98/52 48 Gen - NARD Chest - CTA bilaterally CV -bradycardic but regular. Telemetry showing AFib RVR that converted to normal sinus rhythm with bradycardia GI -nontender. Nondistended. Positive bowel sounds. Ext -no edema Neuro -alert, pleasant and appropriate. Psych -normal mood and affect DS: Data Data Completed and Pending Labs on day of discharge: Labs from last 24 hours 12/26/19 12/25/19 12/25/19 01:55 15:31 13:45 WBC RBC Hgb Hct MCV MCH MCHC RDW Plt Count MPV Immature Gran % (Auto) Neut % (Auto) Lymph % (Auto) Rains % (Auto) Eos % (Auto) Baso % (Auto) Lymph # (Auto) Rains # (Auto) Eos # (Auto) Baso # (Auto) Abs Immat Gran (auto) Absolute Neuts (auto) Absolute Nucleated RBC Nucleated RBC % PT INR APTT Sodium 137 Potassium 3.9 Chloride 107 Carbon Dioxide 28 BUN 16 Creatinine 0.60 L Estim Creat Clear Calc Not Reportable Estimated GFR > 60 Glucose 113 H Lactic Acid Calcium 8.6 Total Bilirubin AST ALT Alkaline Phosphatase Troponin I Total Protein Albumin TSH (Reflex) 0.705 Urine Color Straw Urine Appearance Clear Urine pH 6.0 Ur Specific [place] 1.013 Urine Protein Negative Urine Glucose (UA) Negative Urine Ketones Trace Ur Blood (Man) 1+ H Urine Nitrate Negative Urine Bilirubin Negative Urine Urobilinogen Negative Leukocyte Esterase Rfl Negative Urine RBC 3-5 H Urine WBC 0-3 Ur Squamous Epith Cells Occasional Urine Mucus Rare 12/25/19 12/25/19 12/25/19 13:45 13:45 13:45 WBC RBC Hgb Hct MCV MCH MCHC RDW Plt Count MPV Immature Gran % (Auto) Neut % (Auto) Lymph % (Auto) Rains % (Auto) Eos % (Auto) Baso % (Auto) Lymph # (Auto) Rains # (Auto) Eos # (Auto) Baso # (Auto) Abs Immat Gran (auto) Absolute Neuts (auto) Absolute Nucleated RBC Nucleated RBC % PT 13.2 INR 1.0 APTT 28.6 Sodium 141 Potassium 4.1 Chloride 109 H Carbon Dioxide 27 BUN 17 Creatinine 0.70 Estim Creat Clear Calc Not Reportable Estimated GFR > 60 Glucose 106 H Lactic Acid 0.8 Calcium 9
== END 2019-12-26 13:55 | disposition home or self-care (01) ==
LOC: ANHED 16:39 → ANHIMU 17:42
PROVIDERS: Physician Assistant; Admitting Provider Family Medicine; Emergency Provider Emergency Medicine; PCP Family Medicine; Visit Provider Internal Medicine
DX: I48.91 Unspecified atrial fibrillation (principal); G47.33 Obstructive sleep apnea (adult) (pediatric); E03.9 Hypothyroidism, unspecified; I10 Essential (primary) hypertension; Z79.01 Long term (current) use of anticoagulants; Z79.899 Other long term (current) drug therapy
CPT/HCPCS: 36415; 71045; 80048; 80053; 81001; 83605; 84443; 84484; 85025; 85610; 85730; 93005; 96365; 96366; 99285; A9270; G0378

== ENCOUNTER 2020-09-09 08:33 | Outpatient (CLI) | payer MEDICARE, OTHER, SELFPAY | END 2020-09-09 08:34 | disposition home or self-care (01) | LOC: ANHCOVIDVC 08:33 | PROVIDERS: PCP Family Medicine | DX: Z23 Encounter for immunization (principal) | CPT/HCPCS: 0001A; 91300 ==

== ENCOUNTER 2020-09-30 08:35 | Outpatient (CLI) | payer MEDICARE, OTHER, SELFPAY | END 2020-09-30 08:36 | disposition home or self-care (01) | LOC: ANHCOVIDVC 08:35 | PROVIDERS: PCP Family Medicine | DX: Z23 Encounter for immunization (principal) | CPT/HCPCS: 0002A; 91300 ==

== ENCOUNTER → 2020-10-11 03:08 | Outpatient (CLI) | payer MEDICARE, OTHER, SELFPAY ==
[2020-10-11 19:42] LABS: SARS-CoV-2 RNA PCR Negative
== END ==
PROVIDERS: PCP Family Medicine; Visit Provider Internal Medicine Critical Care Medicine
DX: Z01.812 Encounter for preprocedural laboratory examination (principal); Z20.822 Contact with and (suspected) exposure to COVID-19
CPT/HCPCS: C9803; U0003; U0005

== ENCOUNTER 2020-10-13 09:04 | Outpatient (CLI) | payer MEDICARE, OTHER, SELFPAY ==
--- NOTE | 2020-11-01 14:50 | WPDSLEEPSTUD ---
Sleep Study Date of Study: 10/13/20 Ordering Provider: Meng Dumont PA-C Interpreting Physician: Monserrat Correa MD Sleep Study Type: Split Polysomnogram Height: 1.73 m Weight: 108.862 kg Body Mass Index: 36.5 Neck Circumference (inches): 15 [place]: 14 Reason for Sleep Study Current problems: atrial fibrillation August 2019, nighttime headaches; recommended by the flatwork folder Prior studies: November 03, 2010 CPAP titration, 11 cm optimal pressure; BMI 39.9 October 12, 2010 split night; severe ROXANNA AHI 78.4, lowest sat 51%; inadequate CPAP titration at 12 cm Sleep History Liz Overton is a 70 year old female who has used CPAP since 2010. She occasionally snores and occasionally is loud enough that others complain about it. She occasionally awakens at night with heartburn, belching or coughing. She rarely awakens from sleep feeling short of breath. She frequently has trouble sleep with a cold. She rarely wakes up gasping for breath at night. She occasionally has problems at night with her breathing observed by others. She occasionally sweats excessively at night and notices her heart pounding or beating irregularly at night. She frequently falls asleep during the day, rarely involuntarily and rarely while driving. She rarely has loss of muscle tone was strong emotion. She frequently has daytime difficulties due to excessive sleepiness. She is a retired computer network specialist. She rarely feels paralyzed on waking or falling asleep. She rarely has vivid dreamlike scenes upon awakening or falling asleep. She rarely feels afraid to go to sleep. She rarely has nightmares in for yearly remembers her dreams. She frequently has racing thoughts. She rarely feels sad or depressed. She frequently has anxiety. She occasionally has muscular tension, notices parts of her body jerking, kicks at night and has crawling and aching feelings in her legs. She occasionally has leg pain at night. She rarely has morning jaw pain. She rarely grinds her teeth during sleep. She frequently is bothered by pain during the day and is awakened by pain during the night. She frequently wakes up feeling stiff in the morning with sore achy muscles and occasionally wakes up with pain in the neck and spine. She has daytime fatigue and nighttime headaches. She occasionally has morning headaches. she uses her CPAP however has difficulty adjusting the mask correctly. She wakes up when she hears air leaking. She is tired in the evening but if she goes to bed early around 9:00 a.m. than she usually awakens between 1 or 2:00 a.m. which is annoying to her. Atrial fibrillation is a new diagnosis, and for this reason, her flatwork folder wanted to reassess her sleep. Normal bedtime is between 11 and 11:30 p.m. taking 1/2 hour to fall asleep typically waking 3 or 4 times at night. She often wakes around 3:00 am, and at this time, she might stay awake for 2 hours. She may get up and read. Her normal wake up time is 7:00 a.m.. On weekends, she goes to bed at 11:00 p.m. and wakes at 8:00 a.m.. She takes naps in the day. A short nap of 10 or 15 minutes is not refreshing. She is usually drowsy in the morning for 2 hours or longer. Habits: Never smoked tobacco. No caffeine alcohol or recreational drugs. [facility] Past Medical History Medical History (Updated 11/01/20 @ 15:30 by Monserrat Correa MD) Arthritis Asthma Chronic anticoagulation Hypertension Hypertension Hypothyroid Obstructive sleep apnea (~2001) Paroxysmal atrial fibrillation Umbilical hernia Surgical History Surgical History History of cholecystectomy History of right knee joint replacement History of tubal ligation History of ventral hernia repair Family History Family History Father Motor vehicle accident He in a motor vehicle accident at the age of 46. Hypertension Gran
[2020-11-01 15:50] VITALS: BMI 36.5
== END 2020-10-13 09:05 | disposition home or self-care (01) ==
LOC: ANHCSM 09:05
PROVIDERS: PCP Family Medicine; Visit Provider Physician Assistant
DX: G47.33 Obstructive sleep apnea (adult) (pediatric) (principal)
CPT/HCPCS: 95811

== ENCOUNTER 2021-02-24 08:58 | Outpatient (CLI) | payer MEDICARE, OTHER, SELFPAY ==
--- NOTE | ~2021-02-24 | MM_ITS ---
EXAMINATION: MM screening claude BI w eric HISTORY: Screening mammogram, family history of breast cancer in her sister. TECHNIQUE: Craniocaudal and mediolateral oblique 3-D tomosynthesis images were obtained and synthetic 2-D images were generated. CAD analysis was submitted and interpreted. COMPARISON: 03/04/2019, 04/11/2016, 03/29/2015 BREAST PARENCHYMAL COMPOSITION: The breasts are almost entirely fatty. FINDINGS: There is no evidence of suspicious mass, calcification, or architectural distortion to sugg est malignancy in either breast. There has been no suspicious interval change. IMPRESSION: 1. No mammographic evidence of malignancy. 2. Recommend routine screening mammography in one year. BI-RADS Category 1: Negative Reviewed, dictated and finalized at location A.
--- NOTE | ~2021-02-24 | DEXA_ITS ---
Bone Density Report Name: Liz Overton Age: 70 Sex: Female Ethnicity: White Date of : 1950 Indication: postmenopausal; height loss; asthma or emphysema; Referring Provider: Meng Dumont Study: Bone densitometry was performed. Exam Date: February 24, 2021 Accession number: [id number] Bone Density: Region BMD T-score Z-score Classification AP Spine (L1, L4) 1.456 3.8 5.9 Normal Femoral Neck (Left) 0.774 -0.7 1.1 Normal Total Hip (Left) 0.851 -0.7 0.7 Normal Total Hip Bilateral Avg 0.881 -0.5 0.9 Normal Femoral Neck (Right) 0.975 1.1 2.9 Normal Total Hip (Right) 0.910 -0.3 1.2 Normal World Health Organization criteria for BMD impression classify patients as: Normal (T-score at or above -1.0), Osteopenia (T-score between -1.0 and -2.5), or Osteoporosis (T-score at or below -2.5). 10-year Fracture Risk: FRAX not reported because: All T-scores for Spine Total, Hip Total, Femoral Neck at or above -1.0 Previous Exams: Region Exam Age BMD T-score BMD Change BMD Change Date g/cm2 vs Baseline vs Previous AP Spine(L1, L4) 02/24/2021 70 1.456 3.8 -0.122(-7.8%)# -0.107(-6.8%)* 04/11/2016 65 1.563 4.8 -0.016(-1.0%)# -0.016(-1.0%)# 01/04/2009 58 1.579 4.9 Total Hip(Left) 02/24/2021 70 0.851 -0.7 -0.258(-23.3%) -0.076(-8.2%)* 04/11/2016 65 0.927 -0.1 -0.183(-16.5%) -0.183(-16.5%) 01/04/2009 58 1.109 1.4 Total Hip(Right) 02/24/2021 70 0.910 -0.3 -0.088(-8.8%)# -0.051(-5.3%)* 04/11/2016 65 0.961 0.2 -0.037(-3.7%)# -0.037(-3.7%)# 01/04/2009 58 0.998 0.5 *Denotes significance at 95% confidence level, LSC for AP Spine = 0.022 g/cm2, LSC for Total Hip = 0.027 g/cm2 Clinical Information Provided by Patient: Has used the following medications: Vitamin D Has the following medical conditions: Asthma or Emphysema Patient maximum height was 69 Menopause Age: 54 No regular weight bearing exercise Onset of menses at age 14 Number of children 3 Impression: The patient has normal bone mass. The BMD for the AP Spine(L1, L4) decreased, changing by -6.8% since the last DXA exam. The BMD for the Total Hip(Left) decreased, changing by -8.2% since the last DXA exam. The BMD for the Total Hip(Right) decreased, changing by -5.3% since the last DXA exam. Discussion: BONE DENSITY IS ABOVE THE MINIMUM DESIRABLE LEVEL AT ALL SKELETAL SITES TESTED. This patient?s bone mineral density is above the minimum desirable level (T-sc
== END 2021-02-24 08:59 | disposition home or self-care (01) ==
LOC: ANHIMG 09:01
PROVIDERS: PCP Family Medicine; Visit Provider Physician Assistant
DX: Z12.31 Encounter for screening mammogram for malignant neoplasm of breast (principal); Z78.0 Asymptomatic menopausal state
CPT/HCPCS: 77063; 77067; 77080

== ENCOUNTER 2022-01-27 08:05 | Emergency (ER) | payer MEDICARE, SELFPAY ==
--- NOTE | 2022-01-27 08:12 | ED.EAR ---
HPI - Ear Problem General Stated complaint: ear wax removal Time Seen by Provider: 01/27/22 08:12 Source: patient Mode of arrival: ambulatory Limitations: no limitations History of Present Illness HPI Narrative: Ms. Overton is a 71-year-old female patient presenting to the clinic today with request for earwax removal from bilateral that she went to the loan approver to get fitted for some hearing aids and they stated that she needed to have her ears cleaned out. She reports she denies any pain. Related Data Home Medications Medication Instructions Recorded Confirmed cholecalciferol (vitamin D3) 50 50 mcg PO DAILY 02/18/21 06/10/21 mcg (2,000 unit) capsule Allergies Allergy/AdvReac Type Severity Reaction Status Date / Time No Known Allergies Allergy Verified 01/27/22 08:19 Review of Systems Review of Systems: Pertinent positives per HPI. Patient denies any fever, chills, rash, headache, visual changes, dizziness, cough, runny nose, sore throat, shortness of breath, chest pain, palpitations, nausea, vomiting, diarrhea, constipation, abdominal pain, or any urinary issues. [facility] Past Medical History Medical History Arthritis Asthma Chronic anticoagulation Hypertension Hypertension Hypothyroid Obstructive sleep apnea (~2001) Paroxysmal atrial fibrillation Umbilical hernia Surgical History Surgical History History of cholecystectomy History of right knee joint replacement History of tubal ligation History of ventral hernia repair Family History Family History Father Motor vehicle accident He in a motor vehicle accident at the age of 46. Hypertension Grandparent Family history of glaucoma Family history of lung cancer Sibling Breast cancer Diabetes mellitus Mother Family history of malignant melanoma, Onset Age: 72 Social History Social History Social History: The patient is and lives at home with her , Spencer. They have 3 grown children. 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 She is a lifelong nonsmoker and denies alcohol and illicit substance use. She designates her son, Conner, as her healthcare power of personal injury attorney and she wishes to be a full code. Alcohol intake: never Spiritual care concerns: No Agree to blood products: Yes Comments At the time of my signature, I reviewed and agree with the nursing past medical, surgical, social, and family history. There is no relevant family history pertinent to the patient complaint. Exam Narrative: General: Well-developed, well nourished, in no apparent distress Head: Normocephalic, atraumatic Eyes: Pupils equally round and reactive to light bilaterally, EOM intact, sclera and conjunctive clear, no discharge, lids normal Ears: Bilateral ear canals ceruminous, ear lavage and lighted curette used to remove cerumen bilaterally and TMs intact and clear, ear canals clear, no drainage, grossly hearing normal. Nose: Nares patent, no discharge, no inflammation, no sinus tenderness. Mouth: Oropharynx without lesions or masses, good dentition, MMM. Neck: Supple, trachea midline, no enlargement of anterior or posterior cervical nodes, no thyroid masses or goiter palpable. Cardio: Regular rate and rhythm, s1 and s2 normal, no murmur appreciated. Resp: Clear to auscultation bilaterally anteriorly and posteriorly, no rhonchi, rales, wheezing or rubs Course Course Emergency Course: Portions of this record may have been created with voice recognition software. Level of Care: Express Care Visit Vital Signs Vital signs: Vital signs reviewed Procedures Ear Wax Removal Both Ears: Ear Wax Removal Date: 01/27/22 Results: Re-ex
[2022-01-27 08:17] VITALS: BP 157/97; PULSE 73; RESP 16; TEMP 36.5; O2SAT 98
[2022-01-27 08:20] VITALS: BP 157/97; PULSE 73; RESP 16; TEMP 36.5; O2SAT 98
== END 2022-01-27 08:30 | disposition home or self-care (01) ==
PROVIDERS: Emergency Provider Nurse Practitioner Family
DX: H61.23 Impacted cerumen, bilateral (principal); M19.90 Unspecified osteoarthritis, unspecified site; J45.909 Unspecified asthma, uncomplicated; I10 Essential (primary) hypertension; E03.9 Hypothyroidism, unspecified; G47.33 Obstructive sleep apnea (adult) (pediatric); I48.0 Paroxysmal atrial fibrillation; Z96.651 Presence of right artificial knee joint
CPT/HCPCS: 69210; 99212; G0463

== ENCOUNTER 2022-04-03 09:05 | Outpatient (CLI) | payer MEDICARE, SELFPAY ==
[2022-04-03 20:03] LABS: Alanine Aminotransferase 18 U/L (6-35); Albumin Level 4.1 g/dL (3.5-5.1); Alkaline Phosphatase 93 U/L (38-126); Anion Gap 8 mmol/L (8-16); Aspartate Amino Transferase 44 U/L (14-36); Bilirubin,Total 0.6 mg/dL (0.2-1.3); Blood Urea Nitrogen 15 mg/dL (7-17); Calcium 8.9 mg/dL (8.4-10.2); Carbon Dioxide 28 mmol/L (22-30); Chloride 104 mmol/L (98-107); Cholesterol 153 mg/dL (0-200); Estimated Glomerular Filt Rate > 60; Glucose 118 mg/dL (65-110); HDL Direct 39 mg/dL; Potassium 4.4 mmol/L (3.4-5.0); Sodium 140 mmol/L (137-145); Triglycerides 147 mg/dL (<150)
[2022-04-03 20:14] LABS: LDL Cholesterol Direct 88 mg/dL
[2022-04-03 21:25] LABS: Hemoglobin A1C 5.4 % (<5.7)
[2022-04-03 21:32] LABS: Basophils Percent Auto 0.7 % (0.2-1.2); Eosinophils Absolute Auto 0.1 K/mm3 (0-0.3); Hematocrit 41.8 % (37.0-47.0); Immature Granulocyte Absolute 0.01 K/mm3 (0.00-0.031); Immature Granulocyte Percent A 0.2 % (0-0.5); Lymphocytes Absolute Auto 1.57 K/mm3 (0.9-3.2); Lymphocytes Percent Auto 35.7 % (18.3-44.2); Mean Corpuscular HGB Conc 31.1 g/dl (32-36); Mean Corpuscular Hemoglobin 29.7 pg (26-34); Mean Corpuscular Volume 95.4 fl (80-100); Mean Platelet Volume 9.8 fl (7.4-10.4); Monocytes Absolute Auto 0.4 K/mm3 (0.1-0.6); Monocytes Percent Auto 8.4 % (2.6-8.5); Neutrophils Absolute Auto 2.3 K/mm3 (1.3-6.7); Platelet Count Result 222 k/mm3 (150-375); Red Blood Count 4.38 M/mm3 (4.2-5.4); Red Cell Distribution Width 13.3 % (11.5-14.5); White Blood Count 4.4 K/mm3 (4.5-10.0)
== END 2022-04-03 09:06 | disposition home or self-care (01) ==
PROVIDERS: PCP Family Medicine; Visit Provider Family Medicine
DX: E03.9 Hypothyroidism, unspecified (principal); E55.9 Vitamin D deficiency, unspecified; I10 Essential (primary) hypertension; I48.0 Paroxysmal atrial fibrillation; Z13.220 Encounter for screening for lipoid disorders; R73.01 Impaired fasting glucose; E53.8 Deficiency of other specified B group vitamins
CPT/HCPCS: 36415; 80053; 80061; 82306; 82607; 83036; 84443; 85025

== ENCOUNTER 2022-10-23 08:43 | Outpatient (CLI) | payer MEDICARE, SELFPAY ==
[2022-10-23 18:51] LABS: Alanine Aminotransferase 26 U/L (6-35); Alkaline Phosphatase 87 U/L (38-126); Anion Gap 1 mmol/L (8-16); Aspartate Amino Transferase 96 U/L (14-36); Bilirubin,Total 0.5 mg/dL (0.2-1.3); Blood Urea Nitrogen 14 mg/dL (7-17); Calcium 8.7 mg/dL (8.4-10.2); Carbon Dioxide 35 mmol/L (22-30); Chloride 106 mmol/L (98-107); Estimated Glomerular Filt Rate > 60; Glucose 91 mg/dL (65-110); Potassium 4.7 mmol/L (3.4-5.0); Sodium 142 mmol/L (137-145)
[2022-10-23 19:07] LABS: Vitamin D 25 Hydroxy 34.6 ng/mL
[2022-10-23 19:30] LABS: Basophils Absolute Auto 0.1 K/mm3 (0.0-0.1); Basophils Percent Auto 1.2 % (0.2-1.2); Eosinophils Absolute Auto 0.1 K/mm3 (0-0.3); Eosinophils Percent Auto 2.8 % (0-4.4); Hematocrit 41.8 % (37.0-47.0); Hemoglobin 12.5 g/dL (12.0-15.0); Immature Granulocyte Absolute 0.02 K/mm3 (0.00-0.031); Immature Granulocyte Percent A 0.4 % (0-0.5); Lymphocytes Absolute Auto 1.85 K/mm3 (0.9-3.2); Lymphocytes Percent Auto 37.3 % (18.3-44.2); Mean Corpuscular HGB Conc 29.9 g/dl (32-36); Mean Corpuscular Hemoglobin 29.7 pg (26-34); Mean Corpuscular Volume 99.3 fl (80-100); Mean Platelet Volume 9.3 fl (7.4-10.4); Monocytes Absolute Auto 0.5 K/mm3 (0.1-0.6); Monocytes Percent Auto 10.1 % (2.6-8.5); Neutrophils Absolute Auto 2.4 K/mm3 (1.3-6.7); Neutrophils Percent Auto 48.2 % (45.5-73.1); Platelet Count Result 248 k/mm3 (150-375); Red Blood Count 4.21 M/mm3 (4.2-5.4); Red Cell Distribution Width 13.9 % (11.5-14.5)
[2022-10-23 19:35] LABS: Hemoglobin A1C 5.4 % (<5.7)
[2022-10-23 20:26] LABS: Burr Cells 3+ (NORMAL); Ovalocytes 1+ (NORMAL); Platelet Estimate Adequate (Adequate); Schistocytes None Seen (NORMAL)
== END 2022-10-23 08:44 | disposition home or self-care (01) ==
LOC: ANHGOSHLAB 08:45
PROVIDERS: PCP Family Medicine; Visit Provider Nurse Practitioner Family
DX: E03.9 Hypothyroidism, unspecified (principal); I10 Essential (primary) hypertension; R73.01 Impaired fasting glucose; E53.8 Deficiency of other specified B group vitamins; E55.9 Vitamin D deficiency, unspecified
CPT/HCPCS: 36415; 80053; 82306; 82607; 83036; 84443; 85025

== ENCOUNTER 2022-12-14 10:14 | Outpatient (CLI) | payer MEDICARE, SELFPAY ==
[2022-12-14 19:28] LABS: Alanine Aminotransferase 17 U/L (6-35); Albumin Level 3.9 g/dL (3.5-5.1); Alkaline Phosphatase 83 U/L (38-126); Anion Gap 4 mmol/L (8-16); Aspartate Amino Transferase 25 U/L (14-36); Bilirubin,Total 0.5 mg/dL (0.2-1.3); Blood Urea Nitrogen 14 mg/dL (7-17); Calcium 8.8 mg/dL (8.4-10.2); Carbon Dioxide 32 mmol/L (22-30); Chloride 105 mmol/L (98-107); Estimated Glomerular Filt Rate > 60; Glucose 102 mg/dL (65-110); Potassium 4.9 mmol/L (3.4-5.0); Sodium 141 mmol/L (137-145)
[2022-12-20 09:16] LABS: Immunoglobulin A 255 mg/dL (70-320); TTG IGA AB <1.0 U/mL (<15.0)
== END 2022-12-14 10:15 | disposition home or self-care (01) ==
LOC: ANHGOSHLAB 10:15
PROVIDERS: PCP Family Medicine; Visit Provider Family Medicine
DX: R74.01 Elevation of levels of liver transaminase levels (principal); E78.5 Hyperlipidemia, unspecified; R10.9 Unspecified abdominal pain
CPT/HCPCS: 36415; 80053; 82784; 86364

== ENCOUNTER 2023-05-08 08:54 | Outpatient (CLI) | payer MEDICARE, SELFPAY ==
[2023-05-08 19:48] LABS: Alanine Aminotransferase 16 U/L (6-35); Albumin Level 3.9 g/dL (3.5-5.1); Alkaline Phosphatase 81 U/L (38-126); Anion Gap 4 mmol/L (8-16); Aspartate Amino Transferase 27 U/L (14-36); Basophils Absolute Auto 0.1 K/mm3 (0.0-0.1); Basophils Percent Auto 1.3 % (0.2-1.2); Bilirubin,Total 0.5 mg/dL (0.2-1.3); Blood Urea Nitrogen 14 mg/dL (7-17); Calcium 8.9 mg/dL (8.4-10.2); Carbon Dioxide 30 mmol/L (22-30); Chloride 105 mmol/L (98-107); Cholesterol 157 mg/dL (0-200); Eosinophils Absolute Auto 0.1 K/mm3 (0-0.3); Eosinophils Percent Auto 2.1 % (0-4.4); Estimated Glomerular Filt Rate > 60; Glucose 105 mg/dL (65-110); HDL Direct 37 mg/dL; Hematocrit 39.7 % (37.0-47.0); Hemoglobin 12.3 g/dL (12.0-15.0); Immature Granulocyte Absolute 0.01 K/mm3 (0.00-0.031); Immature Granulocyte Percent A 0.2 % (0-0.5); Lymphocytes Absolute Auto 1.96 K/mm3 (0.9-3.2); Lymphocytes Percent Auto 41.4 % (18.3-44.2); Mean Corpuscular Hemoglobin 29.2 pg (26-34); Mean Corpuscular Volume 94.3 fl (80-100); Mean Platelet Volume 9.5 fl (7.4-10.4); Monocytes Absolute Auto 0.4 K/mm3 (0.1-0.6); Monocytes Percent Auto 8.9 % (2.6-8.5); Neutrophils Absolute Auto 2.2 K/mm3 (1.3-6.7); Neutrophils Percent Auto 46.1 % (45.5-73.1); Platelet Count Result 260 k/mm3 (150-375); Potassium 4.3 mmol/L (3.4-5.0); Red Blood Count 4.21 M/mm3 (4.2-5.4); Red Cell Distribution Width 13.1 % (11.5-14.5); Sodium 139 mmol/L (137-145); Triglycerides 94 mg/dL (<150); White Blood Count 4.7 K/mm3 (4.5-10.0)
[2023-05-08 19:59] LABS: LDL Cholesterol Direct 87 mg/dL
[2023-05-08 20:34] LABS: Atypical Lymphocytes Present; Ovalocytes 1+ (NORMAL); Platelet Estimate Adequate (Adequate); Schistocytes None Seen (NORMAL)
[2023-05-08 20:38] LABS: Vitamin D 25 Hydroxy 29.3 ng/mL
[2023-05-08 22:35] LABS: Hemoglobin A1C 5.4 % (<5.7)
== END 2023-05-08 08:55 | disposition home or self-care (01) ==
PROVIDERS: PCP Family Medicine; Visit Provider Family Medicine
DX: E78.5 Hyperlipidemia, unspecified (principal); E53.8 Deficiency of other specified B group vitamins; E55.9 Vitamin D deficiency, unspecified; R73.9 Hyperglycemia, unspecified; E03.9 Hypothyroidism, unspecified; I48.0 Paroxysmal atrial fibrillation
CPT/HCPCS: 36415; 80053; 80061; 82306; 82607; 83036; 84443; 85025

== ENCOUNTER 2023-10-12 10:09 | Outpatient (CLI) | payer MEDICARE, SELFPAY ==
--- NOTE | ~2023-10-12 | XR_ITS ---
EXAM: XR hand RT min 3V DATE: 10/12/2023 10:20 HISTORY: lump on palm side of hand at distal 2nd metacarpal no injury . COMPARISON: None available. FINDINGS: Decreased mineralization. No fracture or dislocation. No lytic or blastic lesion. Scattere d degenerative changes, typical of osteoarthritis, mild and moderate in the fingers, severe at the rajesh fior-capitate articulation, and moderate in the wrist. Chondrocalcinosis. Loose joint body adjacent t o the radial styloid. Ulnar negative variance. No erosion or periosteal change. Soft tissues within n ormal limits. IMPRESSION: No soft tissue mass detected. 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 Reviewed, dictated and finalized at location K. IMPRESSION: No soft tissue mass detected. Polyarticular wrist and hand arthriti s with chondrocalcinosis.
== END 2023-10-12 10:10 ==
PROVIDERS: PCP Family Medicine; Visit Provider Nurse Practitioner Family
DX: M19.041 Primary osteoarthritis, right hand (principal); M19.031 Primary osteoarthritis, right wrist
CPT/HCPCS: 73130

== ENCOUNTER 2023-10-29 08:45 | Outpatient (CLI) | payer MEDICARE, SELFPAY ==
[2023-10-29 18:49] LABS: Basophils Percent Auto 0.9 % (0.2-1.2); Eosinophils Absolute Auto 0.1 K/mm3 (0-0.3); Eosinophils Percent Auto 2.1 % (0-4.4); Hematocrit 41.2 % (37.0-47.0); Hemoglobin 12.6 g/dL (12.0-15.0); Lymphocytes Absolute Auto 1.65 K/mm3 (0.9-3.2); Lymphocytes Percent Auto 37.6 % (18.3-44.2); Mean Corpuscular HGB Conc 30.6 g/dl (32-36); Mean Corpuscular Hemoglobin 29.5 pg (26-34); Mean Corpuscular Volume 96.5 fl (80-100); Mean Platelet Volume 9.7 fl (7.4-10.4); Monocytes Absolute Auto 0.5 K/mm3 (0.1-0.6); Monocytes Percent Auto 10.5 % (2.6-8.5); Neutrophils Absolute Auto 2.2 K/mm3 (1.3-6.7); Neutrophils Percent Auto 48.9 % (45.5-73.1); Platelet Count Result 244 k/mm3 (150-375); Red Blood Count 4.27 M/mm3 (4.2-5.4); Red Cell Distribution Width 13.6 % (11.5-14.5); White Blood Count 4.4 K/mm3 (4.5-10.0)
[2023-10-29 19:31] LABS: Alanine Aminotransferase 15 U/L (6-35); Albumin Level 4.1 g/dL (3.5-5.1); Alkaline Phosphatase 85 U/L (38-126); Anion Gap 5 mmol/L (4-12); Aspartate Amino Transferase 34 U/L (14-36); Bilirubin,Total 0.4 mg/dL (0.2-1.3); Blood Urea Nitrogen 15 mg/dL (7-17); Calcium 9.4 mg/dL (8.4-10.2); Carbon Dioxide 28 mmol/L (22-30); Chloride 107 mmol/L (98-107); Cholesterol 153 mg/dL (0-200); Estimated Glomerular Filt Rate > 60; Glucose 113 mg/dL (65-110); HDL Direct 43 mg/dL; Potassium 4.7 mmol/L (3.4-5.0); Sodium 140 mmol/L (137-145); Triglycerides 91 mg/dL (<150)
[2023-10-29 19:43] LABS: LDL Cholesterol Direct 90 mg/dL
[2023-10-29 20:07] LABS: Hemoglobin A1C 5.3 % (<5.7)
== END 2023-10-29 08:46 | disposition home or self-care (01) ==
PROVIDERS: PCP Family Medicine; Visit Provider Nurse Practitioner Family
DX: E03.9 Hypothyroidism, unspecified (principal); E78.5 Hyperlipidemia, unspecified; I48.0 Paroxysmal atrial fibrillation; M79.643 Pain in unspecified hand; Z13.29 Encounter for screening for other suspected endocrine disorder; R73.03 Prediabetes
CPT/HCPCS: 36415; 80053; 80061; 83036; 84443; 85025

== ENCOUNTER 2024-03-11 08:22 | Outpatient (CLI) | payer MEDICARE, SELFPAY ==
--- NOTE | ~2024-03-11 | MM_ITS ---
EXAMINATION: MM screening claude BI w eric HISTORY: Screening mammogram, family history of breast cancer in her sister. TECHNIQUE: Craniocaudal and mediolateral oblique 3-D tomosynthesis images were obtained and synthetic 2-D images were generated. CAD analysis was submitted and interpreted. COMPARISON: 02/24/2021, 03/04/2019 BREAST PARENCHYMAL COMPOSITION:Not Dense. The breasts are almost entirely fatty FINDINGS: No suspicious mass, calcification, or architectural distortion are identified in either nanette ast to suggest malignancy. There has been no suspicious interval change. IMPRESSION: No mammographic evidence of malignancy. Recommend routine screening mammography in one year. BI-RADS Category 1: Negative Reviewed, dictated and finalized at location .
== END 2024-03-11 08:23 | disposition home or self-care (01) ==
PROVIDERS: PCP Family Medicine; Visit Provider Family Medicine
DX: Z12.31 Encounter for screening mammogram for malignant neoplasm of breast (principal)
CPT/HCPCS: 77063; 77067

== ENCOUNTER 2024-05-09 08:44 | Outpatient (CLI) | payer MEDICARE, SELFPAY ==
[2024-05-09 14:30] LABS: Hematocrit 41.7 % (37.0-47.0); Hemoglobin 13.3 g/dL (12.0-15.0); Mean Corpuscular HGB Conc 31.9 g/dl (32-36); Mean Corpuscular Hemoglobin 30.2 pg (26-34); Mean Corpuscular Volume 94.8 fl (80-100); Mean Platelet Volume 9.7 fl (7.4-10.4); Platelet Count Result 217 k/mm3 (150-375); White Blood Count 4.7 K/mm3 (4.5-10.0)
[2024-05-09 15:56] LABS: Free T4 Free Thyroxine 1.26 ng/mL (0.78-2.19); Vitamin D 25 Hydroxy 32.7 ng/mL
[2024-05-09 15:57] LABS: Alanine Aminotransferase 12 U/L (6-35); Alkaline Phosphatase 82 U/L (38-126); Anion Gap 8 mmol/L (4-12); Aspartate Amino Transferase 38 U/L (14-36); Bilirubin,Total 0.8 mg/dL (0.2-1.3); Blood Urea Nitrogen 14 mg/dL (7-17); Calcium 9.2 mg/dL (8.4-10.2); Carbon Dioxide 29 mmol/L (22-30); Chloride 104 mmol/L (98-107); Cholesterol 163 mg/dL (0-200); Estimated Glomerular Filt Rate > 60; Glucose 107 mg/dL (65-110); HDL Direct 42 mg/dL; Potassium 4.2 mmol/L (3.4-5.0); Sodium 141 mmol/L (137-145); Triglycerides 108 mg/dL (<150)
[2024-05-09 16:29] LABS: LDL Cholesterol Direct 84 mg/dL
[2024-05-09 17:09] LABS: Hemoglobin A1C 5.7 % (<5.7)
== END 2024-05-09 08:45 | disposition home or self-care (01) ==
PROVIDERS: PCP Family Medicine; Visit Provider Nurse Practitioner
DX: R73.01 Impaired fasting glucose (principal); E78.5 Hyperlipidemia, unspecified; E03.9 Hypothyroidism, unspecified; E55.9 Vitamin D deficiency, unspecified; E53.8 Deficiency of other specified B group vitamins
CPT/HCPCS: 36415; 80053; 80061; 82306; 82607; 83036; 84439; 84443; 85027

== ENCOUNTER 2024-07-07 00:15 | Day surgery (SDC) | payer MEDICARE, SELFPAY ==
[2024-07-04 11:59] VITALS: BMI 33.8
[2024-07-07] VITALS (14 sets, daily range): BP systolic 111–134; BP diastolic 56–81; PULSE 40–56; RESP 12–20; TEMP 36.9; O2SAT 93–98; BMI 33.0
[2024-07-07 08:40] LABS: Basophils Percent Auto 0.8 % (0.2-1.2); Eosinophils Absolute Auto 0.2 K/mm3 (0-0.3); Eosinophils Percent Auto 3.7 % (0-4.4); Hematocrit 41.2 % (37.0-47.0); Hemoglobin 13.2 g/dL (12.0-15.0); Immature Granulocyte Absolute 0.03 K/mm3 (0.00-0.031); Immature Granulocyte Percent A 0.6 % (0-0.5); Lymphocytes Percent Auto 25.5 % (18.3-44.2); Mean Corpuscular Hemoglobin 29.7 pg (26-34); Mean Corpuscular Volume 92.8 fl (80-100); Monocytes Absolute Auto 0.4 K/mm3 (0.1-0.6); Monocytes Percent Auto 7.6 % (2.6-8.5); Neutrophils Absolute Auto 3.2 K/mm3 (1.3-6.7); Neutrophils Percent Auto 61.8 % (45.5-73.1); Platelet Count Result 208 k/mm3 (150-375); Red Blood Count 4.44 M/mm3 (4.2-5.4); Red Cell Distribution Width 13.2 % (11.5-14.5); White Blood Count 5.1 K/mm3 (4.5-10.0)
[2024-07-07 08:54] LABS: Anion Gap 2 mmol/L (4-12); Blood Urea Nitrogen 13 mg/dL (7-17); Calcium 9.3 mg/dL (8.4-10.2); Carbon Dioxide 29 mmol/L (22-30); Chloride 106 mmol/L (98-107); Estimated CRCL calculation 77 ml/min; Estimated Glomerular Filt Rate > 60; Glucose 102 mg/dL (65-110); Potassium 4.1 mmol/L (3.4-5.0); Sodium 137 mmol/L (137-145)
--- NOTE | 2024-07-07 09:35 | WPDHPUPDATE1 ---
History and Physical Update Update Date/Time: 07/07/24 08:55 History and Physical has been reviewed, including an updated exam of the patient. There are NO changes in the patient's condition. Risks, benefits, and alternatives have been discussed and questions answered. Patient agrees to proceed with procedure.
--- NOTE | 2024-07-07 09:36 | WPDMODSED ---
Moderate Sedation Note-Pt Data Patient Data Allergies Allergy/AdvReac Type Severity Reaction Status Date / Time No Known Allergies Allergy Verified 07/07/24 08:22 Home Medications ?Medication ?Instructions ?Recorded ?Confirmed ?Type rivaroxaban 20 mg tablet (Xarelto) 20 mg PO DAILY@1700 #30 tabs 08/31/19 07/04/24 Rx sotalol 80 mg tablet 80 mg PO Q12HR #60 tabs 12/26/19 07/07/24 Rx simethicone 180 mg capsule (Gas-X 180 mg PO BID PRN abdominal 03/23/22 07/04/24 Rx Ultra-Strength) distention #30 caps cyanocobalamin (vitamin B-12) 1,000 mcg sublingual DAILY #90 tabs 04/04/22 07/04/24 Rx 1,000 mcg sublingual tablet loratadine 10 mg tablet (Claritin) 10 mg PO DAILY PRN allergy symptoms 05/02/23 07/04/24 History atorvastatin 20 mg tablet 20 mg PO QHS #90 tabs 12/31/23 07/04/24 Rx acetaminophen 650 mg 650 mg PO Q8H PRN pain 07/04/24 07/04/24 History tablet,extended release amoxicillin 500 mg capsule 2,000 mg PO ONCE 07/04/24 07/04/24 History cholecalciferol (vitamin D3) 25 25 mcg PO DAILY 07/04/24 07/04/24 History mcg (1,000 unit) capsule (Vitamin D3) levothyroxine 88 mcg tablet 88 mcg PO DAILY@0630 07/04/24 07/04/24 History Current Medications: Active Medications Sodium Chloride (Normal Saline Iv) 500 mls @ 100 mls/hr IV CONT .Q5H ELEONORA Sedation/Anesthesia: No previous sedation/anesthesia problems (including family history). [facility] Past Medical History Medical History Arthritis Asthma B12 deficiency Back pain Chronic anticoagulation Environmental allergies Hypothyroid Incisional hernia Mass of palm Obstructive sleep apnea on CPAP Paroxysmal atrial fibrillation Vitamin D deficiency Surgical History Surgical History History of bilateral carpal tunnel release (~05/2009) History of cholecystectomy (~1985) History of right knee joint replacement (~2003) History of tubal ligation (~1982) History of ventral hernia repair (~05/2003) Family History Family History Father Motor vehicle accident He in a motor vehicle accident at the age of 46. Hypertension Grandparent Family history of glaucoma Family history of lung cancer Sibling Breast cancer Diabetes mellitus Mother Family history of malignant melanoma, Onset Age: 72 Social History Social History Social History: The patient is and lives at home with her , Spencer. They have 3 grown children. 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. She is a lifelong nonsmoker and denies alcohol and illicit substance use. She designates her son, Conner, as her healthcare power of criminal attorney and she wishes to be a full code. Smoking packs per day: 0 Smoking cigarettes per day: 0.0 Smoking status: Never smoker Second hand tobacco smoke exposure: No Alcohol intake: never Substance use: never Substance use type: does not use Lack of Transportation: No Lack of Food: Never True Current Housing: I Have Housing Concerned About Future Housing: No Difficulty Paying Gas/Electric Bills: No Difficulty Paying for Meds: No Currently Unemployed: No Education: Bachelor's Degree Difficulty w/ Childcare or Family Care: No Living arrangements: alone Occupation/Education: retired Gender identity (if verbalized by the patient): Female Sexual Orientation (if Verbalized by the Patient): Straight or Heterosexual Spiritual care concerns: No Agree to blood products: Yes Mod Sed Physical Exam Physical Exam Pre Procedural Exam: Normal: Lungs Hours since solid foods: 12 Hours since liquid intake: 12 Mallampati Classification: class II Internal Medicine - PN: Obj Da Vital Signs Vital Signs: Vital Signs - 24 hr 07/07/24 08:24 Temperature 36.9 C Pulse Rate 52 L Respiratory Rate 14 Blood Pressure 114/71 Pulse Oximetry 98 Oxygen Delivery Room Air Meds/Results Medications: Active Medications Generic Name Dose Route Start Last Admin Trade Name Freq PRN Reason Stop Dose Admin Sodium Chloride 500 mls @ 100 mls/hr 07/07/24 08:30 Normal Saline Iv IV CONT .Q5H ELEONORA Labs 07/07/24 08:35 07/07/24 08:35 Labs: Laboratory Results - last 24 hr 07/07/24 08:35 WBC 5.1 RBC 4.44 Hgb 13.2 Hct 41.2 MCV 92.8 MCH 29.7 MCHC 32.0 RDW 13.2 Plt Count 208 MPV 9.0 Immature Gran % (Auto) 0.6 H Neut % (Auto) 61.8 Lymph % (Auto) 25.5 Caroline % (Auto) 7.6 Eos % (Auto) 3.7 Baso % (Auto) 0.8 Lymph # (Auto) 1.30 Caroline # (Auto) 0.4 Eos # (Auto) 0.2 Baso # (Auto) 0.0 Abs Immat Gran (auto) 0.03 Absolute Neuts (auto) 3.2 Absolute Nucleated RBC 0.000 Nucleated RBC % 0.0 Sodium 137 Potassium 4.1 Chloride 106 Carbon Dioxide 29 Anion Gap 2 L BUN 13 Creatinine 0.70 Estim Creat Clear Calc 77 Estimated GFR > 60 Glucose 102 Calcium 9.3 ASA Classification/Sedation ASA Classification/Sedation ASA Class: III Emergent: No Risks: Risks, benefits and alternatives explained and patient/family accepted plan for sedation. Patient re-evaluated immediately prior to sedation.
--- NOTE | 2024-07-07 10:55 | WPDCARDPROC ---
Cardiac Cath Procedure Note Date of procedure:: 07/07/24 Performing physician:: CATHETERIZATION LABORATORY REPORT Procedure Date: 07/07/2024 Referring Physician: Dr. Rascon Anesthesia: Versed and Fentanyl were ordered and given in my presence at 1033, procedure ended at 1051. Supervision of nurse, Feroz Mc monitored moderate sedation with 2mg Versed and 50mcg Fentanyl was provided for 18 minutes. Pre-op Diagnosis: Angina Post-op Diagnosis: Angina Procedure(s): Left heart catheterization with coronary angiography Access Site: Right radial artery Brief History and Clinical Indications: All risks, benefits and alternatives to left heart catheterization with or without percutaneous coronary intervention was discussed at length with the patient. Risk of complications including but not limited to bleeding, infection, arrhythmia, stroke, worsening kidney function, blood loss, groin hematoma, limb loss, emergency coronary artery bypass grafting, and even were discussed with the patient and all questions were answered. The patient understood and wished to proceed. Time out called, patient name, date of , medical record number, allergies, procedure performed, identify Directional Survey Drafter, patient and staff member concurred with accurate data, procedure carried on. Findings: LEFT HEART CATHETERIZATION FINDINGS: 1. Left main: The left main coronary artery is widely patent without any significant obstructive disease. 2. Left anterior descending: The LAD gives off 1 main diagonal branch. The diagonal branch has luminal irregularities. The LAD in its ostium has 10-20% stenosis. The remainder of the LAD is very tortuous and has luminal irregularities. 3. Left circumflex: The left circumflex artery divides into 2 main OM branches. The left circumflex in its proximal body has a tortuous almost 90 degree bend leading to a 40-50% stenosis. The remainder of the left circumflex and its OM branches have luminal irregularities. 4. Right coronary artery: The RCA has mild luminal irregularities without any significant obstructive angiographic disease. The RCA is the dominant vessel. 5. Left ventricle: A. End-diastolic pressure 25 mmHg. B. LV gram deferred. C. No significant gradient across aortic valve on catheter pullback. 6. Opening AO pressure 108/66 and closing AO pressure 110/51 Description of Procedure: Informed consent signed and placed in the chart. Patient transferred to lab asst room. Prepped and draped in usual sterile fashion. 2% lidocaine injected subcutaneously in right wrist area. 22-gauge venipuncture catheter used to access the right radial artery with the Seldinger technique. 6-FR slender sheath placed in right radial artery. Nitroglycerin 200mcg, Verapamil 2.5mg, and Heparin 5000U was given intraarterial through the sheath. J wire advanced under fluoroscopy 5F TIG diagnostic catheter engaged Left Main Coronary Artery. 5F JR4 diagnostic catheter engaged Right Coronary Artery Multiple orthogonal angiogram obtained and reviewed 5F Pigtail diagnostic catheter crossed aortic valve to obtain LVEDP, LV angiogram deferred. Hemostasis was achieved by application of TR band. Assessment: Mild CAD Post Operative Condition: Stable No significant blood loss Disposition: Home Plan: Continue aggressive medical therapy and risk factor modification. [facility] Interventional [facility]
--- OUTSIDE RECORDS SUMMARY | 2024-07-13 12:41 | XMS_ITS | Encounter Summary ---
Author Organization [facility] Address [address] [place] [address] Care Team Providers Care Credit Control Clerk Name Role Phone Gardenia Siu MD Primary Care Provider Reason for Referral * Procedure (Routine) - Authorized Specialty Diagnoses / Procedures Referred By Contac t Referred To Contact Cardiology Diagnoses Abnormal EKG Recurrent chest pain Thien Rascon MD [facility] [address] Phone: tel: fax: [facility] Cardiology [address] [place] [address] Phone: tel: fax: Referral ID Status Reason Start Date Expiration Date Visits Requested Visits Authorized [id number] Authorized Specialty Services Required 08/07/2024 1 1 Question Answer Please select the performing region: [facility] [[id number]] Please select the performing department: [facility] MRYVL [[id number]] # of visits: 1 Comments PROCEDURE/TEST ORDERED:[facility] LOCATION: DATE OF SERVICE:07/07 INSURANCE:[facility] Medicare DIAGNOSIS:angina/abn stress test ORDERING PROVIDER:SHONA ADDITIONAL DETAILS: OR RECRUITMENT CONSULTANT Encounter Details Date Type Department Care Team ([facility] st Contact Info) Description 06/18/2024 Telephone [facility] Cardiology [address] [place] [address] Thien Rascon MD [address] [place] [address] Social History Tobacco Use Types Packs/Day Years Used Date Smoking Tobacco: Never Smokeless Tobacco: Never Alcohol Use Standard Drinks/Week Comments Not Currently 0 (1 standard drink = 0.6 oz pur e alcohol) Comments Unknown Sex and Gender Information Value Date Recorded Sex Assigned at Not on file Legal Sex Female 10:24 PM SENIOR RECRUITMENT CONSULTANT Gender Identity Female 07/13/2021 9:40 PM SENIOR RECRUITMENT CONSULTANT Sexual Orientation Straight 07/13/2021 9: 40 PM SENIOR RECRUITMENT CONSULTANT documented as of this encounter Miscellaneous Notes * Telephone Encounter - Alla Menon - 06/23/2024 3:09 PM CST Informed Spencer at pre Arrival to let them know that PA is pending via evicore OR RECRUITMENT CONSULTANT * Telephone Encounter - Leola Mares - 06/23/2024 12:25 PM CST Evens from pre arrival called to report PA is required for LHC scheduled on 07/07. Contact: OR RECRUITMENT CONSULTANT * Telephone Encounter - Alexia Edmondson RN - 06/18/2024 10:39 AM SENIOR RECRUITMENT CONSULTANT [facility] and SEVERO FYI Per MAF scheduled pt for LHC with [facility] at on 07/07 at 1000. Reviewed instructions and pt verbalized understanding. Pt will hold xarelto 2 days prior. OR RECRUITMENT CONSULTANT documented in this encounter Plan of Treatment Scheduled Referrals Name Type Priority Associated Diagnoses Order Schedule Ambulatory referral to Cardiology Outpatient Referral Routine Abnormal EKG Recurrent chest pain Expected: 06/25/2024 (Approximate), Expires: 06/18/2025 documented as of this encounter Visit Diagnoses Diagnosis Abnormal EKG- Primary Nonspecific abnormal electrocardiogram (ECG) (EKG) Recurrent chest pain Unspecified chest pain documented in this encounter Care Teams Credit Control Clerk Relationship Specialty Start Date End Date Gardenia Siu MD PCP - General Family Practice 04/17/22 documented as of this encounter
--- OUTSIDE RECORDS SUMMARY | 2024-07-13 12:41 | XMS_ITS | Continuity of Care Document ---
Author Organization [facility] up Address [address] [place] [address] Care Team Providers Care Education Program Specialist Name Role Phone MD Chandler Siu Primary Care Provider MD Chandler Siu Attending Provider [phone] SHELLY Beverly Attending Provider Care Teams Patient Care Team Team Status: Active Member Role Status Dates Garrick Donnelly* MD Family Provider Active Chandler Siu MD Primary Care Provider Active Patient Care Team Team Status: Inactive Member Role Status Dates SHELLY Enciso Attending Provider Active Chandler Siu MD Primary Care Provider, Referri ng Provider Active Visit Care Team Team Status: Inactive Member Role Status Dates Chandler Siu MD Primary Care Provider, Attendi ng Provider Active Chief Complaint and Reason for Visit Chief Complaint screening mamm Medicare Annual Wellness Reason for Visit B12 deficiency Hyperlipidemia Obesity Obstructive sleep apnea on CPAP Paroxysmal atrial fibrillation Vitamin D deficiency Hypothyroid Encounter for Medicare annual wellness exam Allergies, Adverse Reactions, Alerts No known allergies Social History Smoking Status Status Start Date End Date Date of Observa tion Never smoked tobacco (finding) May 05, 2024 10:22am Observation Status Date of Observation Not May 05, 2024 Observation Status Observation Response Date of Response Has Lack of Trans Kept You F rom Med Appts or Getting Meds? No October 25, 2022 9:23am In Past 12 Months, Were You Worried Your Food Would Run Out? Never True October 25, 2022 9:23am What is Your Housing Situati on Today? I Have Housing October 25, 2022 9:23am Gender Identity (if Verbaliz ed by the Patient) Female October 25, 2022 9:23am Sexual Orientation (if Verba lized by the Patient) Straight or Heterosexual October 25, 2022 9:23am Are You Worried That in Next 2 Mo, You Won't Have Housing? No October 25, 2022 9:23am Do You Have Trouble Paying Y our Heating Or Electricity Bill? No October 25, 2022 9:23am Do You Have Trouble Paying F or Medicines? No October 25, 2022 9:23am Are You Currently Unemployed and Looking for Work? No October 25, 2022 9:23am Highest Level of Education Completed Bachelor's Degree October 25, 2022 9:23am Do You Have Trouble With Childcare/Care of a Family Member? No October 25, 2022 9: 23am alcohol intake never October 25, 2022 9:23am Substance use type does not use October 25 9:23am Additional Data Assigned Sex Female Gender Identity Cisgender/Not transg emeterio (finding) Travel History Date of Travel Location no Family History Relationship Condition Age at Onset Recorded Date/T aaliyah father Motor vehicle accident Unknown Hypertension Unknown grandparent Family history of glaucoma Unknown Family history of lung cancer Unknown sibling Malignant neoplasm of breast Unknown Diabetes mellitus Unknown mother Family history of malignant melanoma 72 Problems Active Problems Medical Problem Onset Date Status Obstructive sleep apnea on CPAP Active Cerumen impaction Active Osteoarthritis of knees, bilateral Active B12 deficiency Active Back pain Active Chronic anticoagulation Active 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 Hyperlipidemia Active Hypothyroid Active Abdominal discomfort Active Mass of palm Active Environmental allergies Active Incisional hernia Active Left knee pain Active Paroxysmal atrial fibrillation A ctive Vitamin D deficiency Active Obesity Active Arthritis of left knee Active Inactive/Resolved Problems Medical Problem Onset Date Status Elevated fasting glucose Resolve d Obstructive sleep apnea Resolved Encounter for other screening for malignant neop lasm of breast Resolved Fatigue Resolved Seborrheic keratosis Resolved Seborrheic keratosis Resolved Medication monitoring encounter Resolved Atrial fibrillation Resolved Burping Resolved History of right knee joint replacement Resolved Bilateral impacted cerumen Resol angelo Need for hepatitis C screening test Resolved Hypertension Resolved Hypertension Resolved Atrial fibrillation with RVR Res olved Candidal intertrigo Resolved Medications Medication Status Dose Units Route Directions Qty Days St art Date End Date Instructions Simethicone (Gas-X Ultra-Strengt h) 180 mg capsule Active 180 MG PO TWICE A DAY 30 2021 11:00pm Loratadine (Claritin) 10 mg tablet Active 10 MG PO DAILY May 01, 2023 11:00pm Ketoconazole Active APPLIC TOPICAL DAILY Oct shahida 2022 11:00pm Sotalol Active 80 MG PO EVERY 12 HOURS 60 December 26, 2019 12:27pm Rivaroxaban (Xarelto) 20 mg Tablet Active 20 MG PO DAILY AT 1700 30 August 31, 2019 12:00am Cyanocobalami n (Vitamin B-12) Active 1000 MCG SUBLINGU AL DAILY April 03, 2022 11:00pm Ergocalcifero l (Vitamin D2) Active 1250 MCG PO WEEKLY 2022 12:00am Levothyroxine Active 0 .ROUTE .COMPLEX 90 M ay 2023 6:20am TAKE 1 TABLET BY MOUTH DAILY Atorvastatin Active 20 MG PO Every D ay At Bedtime December 31, 2023 7:41am Immunizations Immunization Event Date Not Given Reason Dose Number Sinter Feeder Lot Number Vaccine Information Statement (VIS) Detail Fluad Quad High Dose (65+) April 24, 2020 Fluad Quad High Dose (65+) April 16, 2021 Fluad Quad High Dose (65+) March 30, 2023 18 and up Flublok April 25, 2019 Influenza, adjuvanted June 14, 2022 Influenza, inactivated HD April 20, 2021 Pneumococcal Conjugate Vaccine, 13 valent June 10, 2021 [id number] Pneumococcal Conjugate Vaccine, 20 valent May 02, 2023 [id number] Influenza, inactivated quadrivalent March 02, 2009 Influenza, inactivated quadrivalent February 22, 2011 Influenza, inactivated quadrivalent March 07, 2016 Influenza, inactivated quadrivalent April 04, 2017 Influenza, inactivated quadrivalent April 25, 2019 SARS-COV-2 (COVID-19) Comirnaty April 13, 2023 SARS-COV-2 (COVID-19) Pfizer 2020 [id number] SARS-COV-2 (COVID-19) Pfizer September 30, 2020 [id number] SARS-COV-2 (COVID-19) Pfizer May 03, 2021 SARS-COV-2 (COVID-19) Pfizer [facility] June 14, 2022 Tetanus, Diphtheria (Td) August 20, 2000 Tetanus, Diphtheria, Pertussis (Tdap) October 04, 2010 Tetanus, Diphtheria, Pertussis (Tdap) November 07, 2021 Relevant Diagnostic Tests and/or Laboratory Data No known relevant diagnostic tests, laboratory data Vital Signs Vital Reading Result Reference Range Collection Date/Time Height 68 [in_i] May 05, 10:15am Weight 102.17 kg May 05, 024 10:15am Heart Rate 59 /min 60-100 May 05, 024 10:15am Oxygen saturation by Pulse oximetry 97 % 90-100 May 05, 2024 1 0:15am BP Systolic 144 mm[Hg] 100-140 May 05, 2 024 10:15am BP Diastolic 80 mm[Hg] 60-90 May 05, 2 024 10:15am BMI (Body Mass Index) 34.2 kg/m2 [facility] 2023 10:15am Insurance Providers Guarantor Liz Overton Address [address] [place] [phone] Contact Info. Home Phone: Payer Policy Id Coverage Id Subscriber's Name Subscriber Id Effective Date Expiration Date [place] [address] [id number] Spencer Overton [id number] 2018 Medicare Parts A & B [id number] Liz Overton [id number] Medicare AB [facility] [id number] 2016 Self Pay Self N/A [facility] [id number] Liz Overton [id number] Encounters Encounter Location(s) Arrival/Admit Date Discharge/Depart Date Provider(s) Departed [facility] March 11, 2024 7:22am March 11, 2024 7:23am Gardenia Siu MD Departed Physician/Prov ider Office Visit [facility] May 05, 2024 10:11am May 05, 2024 11:11am Alla Beverly APRN Recent Diagnosis Onset Date B12 deficiency Hyperlipidemia Obesity Obstructive sleep apnea on CPAP Paroxysmal atrial fibrillation Vitamin D deficiency Hypothyroid Encounter for Medicare annual wellness e xam Assessments Diagnosis Onset Date Resolution Status B12 deficiency acute Hyperlipidemia acute Obesity acute Obstructive sleep apnea on CPAP acute Paroxysmal atrial fibrillation acute Vitamin D deficiency acute Hypothyroid chronic Encounter for Medicare annual wellness exam noneactive Plan of Treatment Author Alla Beverly [facility] Authored May 05, 2024 1 0:28am -Mammogram (recommended ever y 1-2 years): 03/11/24. -DEXA (bone density screening recommended every 2-3 years age 65 and older): 02/24/21 - normal -Colonoscopy (recommended every 10 years to age 75): Cologuard: 07/06/21 (negative) -Hepatitis C (born [birth year], one time screening): Recommended, ordered at last visit. -Immunizations: Influenza (recommended annually): Recommended for Fall 2023. Prevnar 20 (recommended once age 65 and older): Up to date. Shingles (Shingrix recommended age 60 and older): Recommended - Informed patient that she will need to go to the pharmacy for this injection.?? Tdap (recommended once, with tetanus booster every 10 years): Up to date. -Patient education: Nutrition, physical activity, managing medications. -Recommend annual eye exam. -Follow up in 4 months. Future Tests Future scheduled test information is unavailable Pending Tests Test Name Ordered Date Scheduled Date Vitamin B12 May 05, 2024 7:19am Hemoglobin A1C May 05, 2024 7:19am MM screening claude BI w eric May 05, 2024 10 :28am Thyroid Stimulating Hormone May 05, 2024 7 :19am Free T4 Free Thyroxine May 05, 2024 7:19am Future Visits Future appointment information is unavailable Referrals to Other Providers Reason for Referral Referral Start Date Provider Provider Contact Information Provider Address Z12.11 - Encounter for screening for malignant neoplasm of colon,Z12.12 - Encounter for screening for malignant neoplasm of rectum May 05, 2024 order Cologuard H61.20 - Impacted cerumen, unspecified ear May 05, 2024 Sukhdev Durbin MD Work Phone: [phone] [facility] [address] [place] [phone] Future Procedures Procedure Name Ordered Date Scheduled Date Complete Blood Count no Diff May 05, 2024 7:19am Comprehensive Metabolic Panel May 05, 2024 7:19am Lipid Panel May 05, 2024 7:19am Vitamin D 25 Hydroxy May 05, 2024 7:19am Future Medications Future medication information is unavailable Patient Instructions Patient instructions are unavailable Hospital Discharge Instructions Ambulatory Orders* FIT-DNA Location: None Selected * ENT Referral Time Frame: 05/05/24, Location: None Selected
--- OUTSIDE RECORDS SUMMARY | 2024-07-13 12:41 | XMS_ITS | Clinical Summary ---
Author Organization [facility] [address] Address [address] [place] [address] Care Team Providers Care Fulling Machine Operator Name Role Phone Gardenia Siu MD Primary Care Provider Allergies No known active allergies Medications levothyroxine (SYNTHROID) 88 mcg tablet Take 1 tablet (88 mcg total) by mouth assistant therapy aide before breakfast Active atorvastatin (LIPITOR) 20 mg tablet Take 1 tablet (20 mg total) by mouth nightly 10/22/19 21 Active acetaminophen ER (TYLENOL) 650 mg 8 hr tablet Take 1 tablet (650 mg total) by mouth every 8 (eight) hours as needed for pain Active cyanocobalamin (vitamin B-12) 1,000 mcg tabletIndications:P revention of Vitamin B12 Deficiency Take 1 tablet (1,000 mcg total) by mouth daily Active loratadine (CLARITIN) 10 mg tablet Take 1 tablet (10 mg total) by mouth daily Active ergocalciferol (VITAMIN D) 50,000 unit capsule TAKE 1 CAPSULE BY MOUTH WEEKLY 08/11/19 24 Active sotaloL (BETAPACE) 80 mg tabletIndications:P aroxysmal atrial fibrillation (CMS/HCC) (HCC) TAKE 1 TABLET(80 MG) BY MOUTH TWICE DAILY 180 tablet 3 11/30/19 24 Active Xarelto 20 mg tabletIndications:C hronic anticoagulation TAKE 1 TABLET(20 MG) BY MOUTH DAILY 90 tablet 3 05/06/20 24 Active BIOTIN ORAL Take by mouth Acti ve amoxicillin 500 mg capsule TAKE 4 CAPSULES BY MOUTH 1 HOUR BEFORE DENTAL APPOINTMENT 06/05/20 24 Active Active Problems Problem Noted Date Diagnosed Date Abnormal EKG 06/18/2024 Chest tightness 06/18/2024 Recurrent chest pain 07/14/2021 Encounter for monitoring sotalol therapy 021 Diastolic dysfunction 12/25/2019 ROXANNA (obstructive sleep apnea) 12/25/2019 Chronic anticoagulation 12/25/2019 Paroxysmal atrial fibrillation (CMS/HCC) 020 Knee pain 07/15/2014 Encounters Date Type Department Care Team Description 07/09/2024 Orders Only [facility] Medical [facility] [address] [place] [address] Ruiz Hines MD 06/18/2024 9:15 AM [facility] Office Visit [facility] [address] [facility] [address] [place] [address] Thien Rascon MD Paroxysmal atrial fibrillation (CMS/HCC) (HCC) (Primary Dx); Diastolic dysfunction; Chronic anticoagulation; ROXANNA (obstructive sleep apnea); Encounter for monitoring sotalol therapy; Chest tightness; Abnormal EKG; Dyslipidemia 06/18/2024 Telephone [facility] [address] [place] [address] Thien Rascon MD 04/17/2024 Orders Only [address] [address] Unknown, Notinfile from Last 3 Months Surgical History Surgery Date Site/Laterality Comments GALLBLADDER SURGERY 07/02/1985 - 07/01/1986 TUBAL LIGATION 07/02/1982 - 07/01/1983 HERNIA REPAIR 05/02/2003 - 05/31/2003 REPLACEMENT TOTAL KNEE 07/02/2003 - 08/01/2003 CHOLECYSTECTOMY 05/02/1984 - 05/31/1984 JOINT REPLACEMENT Medical History Medical History Date Comments Atrial fibrillation (CMS/HCC) (HCC) Thyroid disease Sleep apnea Arthritis Family History Medical History Relation Name Comments Hypertension Father Nilo Link Family history of hypertension - (Added by TW Conv) Blood Clot Mother Demetrio Leiva Family history of blood clots - (Added by TW Conv) Cancer Mother Demetrio Leiva Family history of malignant neoplasm - (Added by TW Conv) Diabetes Sister Anne Marie Leary Family history of diabetes mellitus - (Added by TW Conv) Relation Name Status Comments Father Nilo Link (Age 46) Mother Demetrio Leiva (Age 72) Sister Anne Marie Leary Social History Tobacco Use Types Packs/Day Years Used Date Smoking Tobacco: Never Smokeless Tobacco: Never Tobacco Cessation:Counseling Given: Not Answered Alcohol Use Standard Drinks/Week Comments Not Currently 0 (1 standard drink = 0.6 oz pur e alcohol) Comments Unknown Sex and Gender Information Value Date Recorded Sex Assigned at Not on file Legal Sex Female 10:24 PM [facility] Gender Identity Female 07/13/2021 9:40 PM [facility] Sexual Orientation Straight 07/13/2021 9: 40 PM [facility] Obstetrics History Last Filed Vital Signs Vital Sign Reading Time Taken Comments Blood Pressure 130/82 06/18/2024 9:17 AM [place] Pulse 61 06/18/2024 9:17 AM [facility] [employer] Temperature - - Respiratory Rate - - Oxygen Saturation 98% 06/18/2024 9:17 AM [employer] [employer] Inhaled Oxygen Concentration - - Weight 100.7 kg (222 lb) 06/18/2024 9:17 AM [facility] [employer] Height 172.7 cm (5' 8 ) 06/18/2024 9:17 AM [employer] [employer] Body Mass Index 33.75 06/18/2024 9:17 AM [facility] Plan of Treatment Health Maintenance Due Date Last Done Comments Breast Cancer Screening-Mammogram 1950 Colon Cancer Screening-Colonoscopy 1950 Depression Screening 1950 Fall Risk Assessment 1950 Hepatitis C Screening 1950 Osteoporosis Screening-Bone Density Scan 1950 DTaP/Tdap/Td Vaccine (1 - Tdap) 09/08/1962 Hepatitis B Screening 09/08/1969 Zoster Vaccine (1 of 2) 09/08/2001 Pneumococcal vaccine 65+ (1 of 1 - PCV) 09/08/2016 Well Visit 65+ 09/08/2016 Influenza Vaccine (#1) 2024 04/25/2019 Procedures Procedure Name Priority Date/Time Associated Diagnosis Comments CARDIOLOGY DOCUMENT SCAN Routine 025 2:54 PM [facility] ELECTROCARDIOGRAM REPORT Routine 024 10:24 AM [facility] Paroxysmal atrial fibrillation (CMS/HCC) (HCC) Encounter for monitoring sotalol therapy Chest tightness POCT LIPID PANEL Routine 06/18/2024 9:18 AM [facility] Dyslipidemia SURGICAL PATHOLOGY Routine 04/17/2024 8: 50 AM CDT from Last 3 Months Results * Cardiology Document Scan (07/07/2024 2:54 PM [facility]) Anatomical Region Laterality Modality Other Result [facility] Ruiz Hines MD CV CARDIAC SERVICES PROCEDURES F inal Result * Electrocardiogram Report (06/18/2024 10:24 AM [facility]) Result [facility] Thien Rascon MD ECG ORDERABLES Final Res ult * POCT lipid panel (06/18/2024 9:18 AM [facility]) Cholesterol, POC 165 mg/dL HDL, POC 46 mg/dL Triglycerides, POC 153 mg/dL LDL Cholesterol POC 88 mg/dL Chol/HDL Ratio, POC 1.9 Non-HDL Cholesterol, POC 119 mg/dL Cholesterol Total, POC 165 mg/dL Capillary blood 06/18/2024 9 :18 AM [facility] Result [facility] Thien Rascon MD POINT OF CARE TEST ORDERA BLES Final Result * Surgical pathology (04/17/2024 8:50 AM CDT) Skin, shave biopsy 04/17/2024 8:50 AM CDT 04/18/2024 6:39 AM CDT Narrative 04/21/2024 1:10 PM CDT [facility] results best viewed via link to PDF [facility] [address] [place] [address] [address] ??[address] [place] [address] ? [email or web address] Note to Patients: ??This report may contain a detailed description of human tissue sent by a health care provider to the laboratory for pathologic evaluation. ??The content of this report is essential for diagnosis and may provide important critical findings. ??This information may be unfamiliar to patients to review without a medical professional present. ?? It is advised that the patient review this report in the presence of a health care provider who can answer questions and explain the details. FINAL REPORT Patient Information: PATIENT NAME: ??LIZ TAI ? SEX: ??F ? : ??1950 (Age: 73) ? Specimen Information: COLLECTED: ??04/17/2024 ? RECEIVED: ??04/18/2024 ? REPORTED: ??04/21/2024 ? Submitting Physician Information: Anjali Dye, [facility], [address] [place] [address] ??[id number], ? DERMATOPATHOLOGY REPORT RESULTS ?? DIAGNOSIS: SKIN, LEFT POSTERIOR SHOULDER, SHAVE BIOPSY: ? SEBORRHEIC KERATOSIS exr/lac By this signature, I attest that the above diagnosis is based upon my personal examination of the slides(and/or other material indicated in the diagnosis). Balbina Quiroz M.D. ?? Report Electronically Reviewed and Signed Out By ??Balbina Quiroz M.D. 04/21/2024 13:10:34 CLINICAL INFORMATION NEOPLASM OF UNCERTAIN BEHAVIOR VS. SKI VS. SCC SPECIMEN DATA MICROSCOPIC DESCRIPTION: There is hyperkeratosis, papillated and reticulated epithelial hyperplasia and horn pseudocysts. (L82.1) GROSS DESCRIPTION: Received in a formalin-containing bottle is a superficial fragment of pale spivey and flaky skin measuring 0.5 by 0.5 by 0.2 cm. The surgical margin is inked blue. The specimen is sectioned into 2 pieces and submitted entirely in a single cassette. Due to shrinkage, measurements may be different than those at time of procedure. exr/dxv ICD-9 A; ZSD.1411 ? Clerical Data A; 11318 The characteristics of special, immunohistochemical, and immunofluorescence stains and in-situ hybridization tests performed by the [facility] were deemed acceptable in ongoing advanced quality engineer measures and in compliance with regulations drawn from the Clinical Laboratory Improvement Act ge5161 (CLIA '88). Control reactions for all stains performed were deemed adequate and appropriate by a pathologist prior to evaluation of patient tissue. Some diagnoses were rendered with the assistance of laboratory-developed tests utilizing analyte-specific reagents; the performance characteristic of these tests were determined by [facility] and are not cleared or approved by the [place] Food an Drug administration. Laboratory developed test may only be performed in a facility that is certified by the [facility] as a high-complexity laboratory under CLIA '88. These tests are used for clinical purposes and are not investigational. us Notinfile Unknown LAB PATHOLOGY ORDERABLES Final Result from Last 3 Months Insurance MEDICARE SOLUTIONS MEDICARE SOLUTIONS MEDICARE SOLUTIONS Care Teams Fulling Machine Operator Relationship Specialty Start Date End Date Gardenia Siu MD PCP - General Family Practice 04/17/22
--- OUTSIDE RECORDS SUMMARY | 2024-07-13 12:41 | XMS_ITS | Referral Summary ---
Author Organization [facility] [address] [address] [place] [address] [address] [place] [address] Care Team Providers Care Forest Management Teacher Name Role Phone Gardenia Siu MD Primary Care Provider Encounters Date Type Department Care Team Description 07/09/2024 Orders Only [facility] Cardiology [address] [place] [address] [address] [place] [address] Ruiz Hines MD 06/18/2024 Telephone [facility] Cardiology [address] [place] [address] [address] [place] [address] Thien Rascon MD 06/18/2024 9:15 AM MANAGER ARCHITECTURE Office Visit [facility] Cardiology [address] [place] [address] [address] [place] [address] Thien Rascon MD Paroxysmal atrial fibrillation (CMS/HCC) (HCC) (Primary Dx); Diastolic dysfunction; Chronic anticoagulation; ROXANNA (obstructive sleep apnea); Encounter for monitoring sotalol therapy; Chest tightness; Abnormal EKG; Dyslipidemia 04/17/2024 Orders Only [facility] [address] [place] [address] Unknown, Notinfile from Last 3 Months Allergies No known active allergies Medications levothyroxine (SYNTHROID) 88 mcg tablet Take 1 tablet (88 mcg total) by mouth rn case manager before breakfast Active atorvastatin (LIPITOR) 20 mg [...] atrial fibrillation (CMS/HCC) 020 Knee pain 07/15/2014 Social History Tobacco Use Types Packs/Day Years Used Date Smoking Tobacco: Never Smokeless Tobacco: Never Tobacco Cessation:Counseling Given: Not Answered Alcohol Use Standard Drinks/Week Comments Not Currently 0 (1 standard drink = 0.6 oz pur e alcohol) Comments Unknown Sex and Gender Information Value Date Recorded Sex Assigned at Not on file Legal Sex Female 10:24 PM MANAGER ARCHITECTURE Gender Identity Female 07/13/2021 9:40 PM MANAGER ARCHITECTURE Sexual Orientation Straight 07/13/2021 9: 40 PM MANAGER ARCHITECTURE Last Filed Vital Signs Vital Sign Reading Time Taken Comments Blood Pressure 130/82 06/18/2024 9:17 AM MANAGER ARCHITECTURE Pulse 61 06/18/2024 9:17 AM MANAGER ARCHITECTURE Temperature - - Respiratory Rate - - Oxygen Saturation 98% 06/18/2024 9:17 AM MANAGER ARCHITECTURE Inhaled Oxygen Concentration - - Weight 100.7 kg (222 lb) 06/18/2024 9:17 AM MANAGER ARCHITECTURE Height 172.7 cm (5' 8 ) 06/18/2024 9:17 AM MANAGER ARCHITECTURE Body Mass Index 33.75 06/18/2024 9:17 AM MANAGER ARCHITECTURE Plan of Treatment Not on file Procedures Procedure Name Priority Date/Time Associated Diagnosis Comments CARDIOLOGY DOCUMENT SCAN Routine 025 2:54 PM MANAGER ARCHITECTURE ELECTROCARDIOGRAM REPORT Routine 024 10:24 AM MANAGER ARCHITECTURE Paroxysmal atrial fibrillation (CMS/HCC) (HCC) Encounter for monitoring sotalol therapy Chest tightness POCT LIPID PANEL Routine 06/18/2024 9:18 AM MANAGER ARCHITECTURE Dyslipidemia SURGICAL PATHOLOGY Routine 04/17/2024 8: 50 AM CDT from Last 3 Months Results * Cardiology Document Scan (07/07/2024 2:54 PM MANAGER ARCHITECTURE) Anatomical Region Laterality Modality Other Ruiz Hines MD [facility] CARDIAC SERVICES PROCEDURES F inal Result * Electrocardiogram Report (06/18/2024 10:24 AM MANAGER ARCHITECTURE) Thien Rascon MD ECG ORDERABLES Final Res ult * POCT lipid panel (06/18/2024 9:18 AM MANAGER ARCHITECTURE) Cholesterol, POC 165 mg/dL HDL, POC 46 mg/dL Triglycerides, POC 153 mg/dL LDL Cholesterol POC 88 mg/dL Chol/HDL Ratio, POC 1.9 Non-HDL Cholesterol, POC 119 mg/dL Cholesterol Total, POC 165 mg/dL Capillary blood 06/18/2024 9 :18 AM MANAGER ARCHITECTURE Thien Rascon MD POINT OF CARE TEST ORDERA BLES Final Result * Surgical pathology (04/17/2024 8:50 AM CDT) Skin, shave biopsy 04/17/2024 8:50 AM CDT 04/18/2024 6:39 AM CDT Narrative 04/21/2024 1:10 PM CDT [facility] results best viewed via link to PDF [facility] [address] [place] [address] Ave[address] ??[address], [place] [address] ? [email or web address] Note to Patients: ??This report may [...] ??04/21/2024 ? Submitting Physician Information: Anjali Dye, [facility], [address] [place] [address] ??[id number], ? DERMATOPATHOLOGY REPORT RESULTS ?? DIAGNOSIS: SKIN, [...] ICD-9 A; ZSD.1411 ? Clerical Data A; 81150 The characteristics of special, immunohistochemical, and immunofluorescence stains and in-situ hybridization tests performed by the [facility] were deemed acceptable in ongoing quality assurance group leader measures and in compliance with regulations drawn from the Clinical Laboratory Improvement Act we8149 (CLIA '88). Control reactions for all stains performed were deemed adequate and appropriate by a pathologist prior to evaluation of patient tissue. Some diagnoses were rendered with the assistance of laboratory-developed tests utilizing analyte-specific reagents; the performance characteristic of these tests were determined by [facility] and are not cleared or approved by the [place] Food an Drug administration. Laboratory developed test may only be performed in a facility that is certified by the [facility] as a high-complexity laboratory under CLIA '88. These tests are used for clinical purposes and are not investigational. us Notinfile Unknown LAB PATHOLOGY ORDERABLES Final Result from Last 3 Months Insurance [employer]ICARE [employer] [facility] MEDICARE Address: [address] [address] [place] [address] MEDICARE [employer] [facility] MEDICARE Address: [address] [address] [place] [address] Care Teams Forest Management Teacher Relationship Specialty Start Date End Date Gardenia Siu MD PCP - General Family Practice 04/17/22
--- OUTSIDE RECORDS SUMMARY | 2024-07-13 12:41 | XMS_ITS | Encounter Summary ---
Author Organization [facility] Healthcare Address [address] [place] [address] Care Team Providers Care Induction Furnace Operator Name Role Phone Gardenia Siu MD Primary Care Provider Reason for Visit * Reason Comments Atrial Fibrillation Diastolic dysfunction Chest Pain 6 mo f/u Encounter Details Date Type Department Care Team ([facility] st Contact Info) Description 06/18/2024 9:15 AM MECHANICAL MAINTENANCE SUPERVISOR Office Visit [facility] Medical Group Cardiology [address] [facility] [address] [place] [id number] Thien Rascon MD [address] [address] Paroxysmal atrial fibrillation (CMS/HCC) (HCC) (Primary Dx); Diastolic dysfunction; Chronic anticoagulation; ROXANNA (obstructive sleep apnea); Encounter for monitoring sotalol therapy; Chest tightness; Abnormal EKG; Dyslipidemia Social History Tobacco Use Types Packs/Day Years Used Date Smoking Tobacco: Never Smokeless Tobacco: Never Alcohol Use Standard Drinks/Week Comments Not Currently 0 (1 standard drink = 0.6 oz pur e alcohol) Comments Unknown Sex and Gender Information Value Date Recorded Sex Assigned at Not on file Legal Sex Female 10:24 PM MECHANICAL MAINTENANCE SUPERVISOR Gender Identity Female 07/13/2021 9:40 PM MECHANICAL MAINTENANCE SUPERVISOR Sexual Orientation Straight 07/13/2021 9: 40 PM MECHANICAL MAINTENANCE SUPERVISOR documented as of this encounter Last Filed Vital Signs Vital Sign Reading Time Taken Comments Blood Pressure 130/82 06/18/2024 9:17 AM MECHANICAL MAINTENANCE SUPERVISOR Pulse 61 06/18/2024 9:17 AM MECHANICAL MAINTENANCE SUPERVISOR Temperature - - Respiratory Rate - - Oxygen Saturation 98% 06/18/2024 9:17 AM MECHANICAL MAINTENANCE SUPERVISOR Inhaled Oxygen Concentration - - Weight 100.7 kg (222 lb) 06/18/2024 9:17 AM MECHANICAL MAINTENANCE SUPERVISOR Height 172.7 cm (5' 8 ) 06/18/2024 9:17 AM MECHANICAL MAINTENANCE SUPERVISOR Body Mass Index 33.75 06/18/2024 9:17 AM MECHANICAL MAINTENANCE SUPERVISOR documented in this encounter Progress Notes * Thien Rascon MD - 06/18/2024 9:15 AM CST [facility] Medical Group Cardiology [address] [place] [address] Date of Visit: 06/18/2024 Patient ID: Liz Overton [id number] Chief Complaint: Liz Overton is a 73 y.o. female who is having follow-up after hospitalization for atrial fibrillation with RVR. History of Present Illness: Liz Overton is a 73 y.o. female with a past medical history of hypertension, hyperlipidemia, sleep apnea, hypothyroidism and arthritis. She was experiencing intermittent weakness, dizziness and fatigue for a year more. More recently, her symptoms began happening daily and were accompanied by chest pressure/heaviness. Upon evaluation in her primary care provider's office she was found to be inAFib with RVR and was sent to [facility] on 08/28/2019. She denied feeling any palpitations at any point in time. She endorsed a history of a negative stress test that was performed on 02/25/2019. Dr. Rascon met her in consultation. Her echocardiogram showed normal LV systolic function with EF 55-60%, grade 1 diastolic dysfunction, mild LAE and no significant valvular disease. She was placed on a diltiazem drip and spontaneously converted to sinus rhythm. She was started on Xarelto for systemic oral anticoagulation. Because it was suspected that her AFib could of been present for a long period of time, anti rhythmic therapy was advised and she was started on sotalol at a dose of 40 mg b.i.d. due to slow heart rate. The sotalol was started on 08/29/2019. By 08/31/2019 her QT interval was appropriate. She was advised to reassess her sleep apnea as an outpatient. 09/26/2019 hospital follow-up televisit with SYSTEM CONFIGURATION SPECIALIST: The patient reports overall feeling well since discharge. She has been using a Fitbit to track her heart rate and it has been in the 60s. She has questions about concomitant use of other medications with her new sotalol and Xarelto. Specifically, she asked about the ability to take piroxicam (to control arthritis pain), Sudafed (for allergy symptoms), and the antibiotic prophylaxis she needs for dental work. She states she uses her CPAP machine but when she wakes up in the morning it feels like her mask is leaking air. She denies chest pain orany unusual shortness of breath. She denies any bleeding problems. Follow-up note 12/25/2019: She returns today feeling poorly. She is weak and nauseated. She is in atrial fibrillation with rapid ventricular response. She has been having significant spells where shefeels really poorly. She will have 4 5 episodes per month in which it will last for a couple days were she feels really quite tired and occasionally feels palpitations. She does also feel lightheadedness as well as a generalized chest tightness and nausea. She has back pain with as well. No syncope, edema, paroxysmal nocturnal dyspnea orthopnea. Hospital follow-up with SYSTEM CONFIGURATION SPECIALIST 02/04/2020: At the last visit, she was found to be in AFib with RVR, admitted, put on sotalol and cardioverted. On subsequent ECG in the office, she was bradycardic and feeling tired, so sotalol was reduced to 80 mg in the morning and 40 mg in the afternoon. Today's 12 lead ECG which was reviewed by me personally shows sinus rhythm, LAD, LAFB, rate 68 beats per minute and QTC 489 MS. She states she is feeling better. She still complains of fatigue but attributes it nely regular exercise. POC lipid panel today shows TC 244, HDL 49, TG 212, LDL 152. She said her PCP had mentioned that her lipids were elevated and she was going to try a few months of lifestyle modification before medical therapy. Follow-up note 05/20/2020: She is still having some periodic episodes of atrial fibrillation which will last for few hours. Her episodes generally occur in the afternoon and will last through the evening. She usually goes asleep and wakes up the next day back in normal sinus rhythm. She has not hadany significant syncope, presyncope, paroxysmal nocturnal dyspnea, orthopnea, edema. She has had some chest tightness symptoms with an elevated heart rate as high as 160s but her recent stress test showed no clear evidence of ischemia. She was on sotalol 80 mg p.o. b.i.d. but she was having some low heart rates in the morning at that dose and show the evening dose of sotalol was reduced to 40 mg daily. She feels more comfortable with this dosing regimen. Follow-up note 09/23/2020: Her palpitations are better. She has only had 1 episode since last visit. She has been having some anterior chest tightness that occurs generally at rest. Will last for an hour so and radiates into her upper back. Not associated with other symptoms. Generally not exertional. She feels tired and weak and thinks or CPAP needs to be Re adjusted. She denies any paroxysmal nocturnal dyspnea, orthopnea, syncope, presyncope, edema. Follow-up note 01/06/2021: She had 3 episodes of atrial fibrillation since early August. Each lasting a relatively brief period time and well tolerated except for feeling tired at the same time. She has no chest pain, syncope, paroxysmal nocturnal dyspnea, orthopnea, edema, shortness of breath Follow-up note 07/14/2021: She is experiencing some chest tightness. She states that this is not new but she has been having tightness in her chest lasting for a couple of minutes a couple times per week. Not associated with other symptoms. Does not radiate. She has rare episodes of palpitations inthe last episode of atrial fibrillation that she had was in May. She denies any syncope, presyn cope, paroxysmal nocturnal dyspnea, bleeding problems, edema Follow-up visit with SYSTEM CONFIGURATION SPECIALIST 04/17/2022: She missed her follow-up appointment in December because she had COVID. Ever since then she has felt tired and somewhat weak. From August to mid November she had no episodes of AFib but in December she had 2, March she has 3, and she had 1 last week. [place] shows a heart rate of 150s to 170s during these episodes, overall they seem pretty brief but may last upto 5 hours, and sometimes when they happen in the evening she just goes to bed and they are gone inthe morning. After the episode she feels exhausted. She still has some intermittent chest tightnessbut says it is not real bad, she is somewhat vague about trying to describe it. Her from prostate cancer in August and she becomes tearful when mentioning this. PCP did labs last month showing a low B12 and she is now on supplementation. Her thyroid was okay she reports. She was back to the PCP in a week. She reports regular compliance with her CPAP and feels her mask fits her well. She developed a cough with morning sinus drainage a few days ago, after being with her grandson who also had a cough. She denies fever. 12-lead ECG performed in the office today was independently interpreted by me and showed Sinus rhythm, LAD, LAFB, QTc 463ms, rate 62 beats per minute; compared to ECG 07/14/2021 T-wave abnormality now seen in V3 and V4. Follow-up note 10/18/2022 She does have a few episodes of atrial fibrillation usually afternoon or evening and usually last for few hours. She averages about 2 episodes per month. She will have dizziness at that time but otherwise tolerates them well. She has no chest pain, syncope, paroxysmal nocturnal dyspnea orthopnea, unusual edema . Follow-up note 04/25/2023: She is only has a few episodes of palpitations lasting for a few minutesa couple times per month. She goes to sleep in her symptoms resolved by morning. She denies any chest pain, shortness breath, syncope, presyncope, paroxysmal nocturnal dyspnea orthopnea, significant edema Follow-up note 11/01/2023: She feels weak all the time but no syncope, presyncope, paroxysmal nocturnal dyspnea, orthopnea, edema. No significant shortness of breath. Complains of arthritic pain. Hassome intermittent chest pain that occurs randomly and is similar to previously described symptoms. N egative stress test past Follow-up note 06/18/2024: Still having episodes of chest tightness and back tightness occurs randomly. Has shortness of breath with minor activity generally feels weak all the time. No syncope, presyncope, paroxysmal nocturnal dyspnea orthopnea, edema . Records that I personally reviewed on the day of this visit include: (the interpretation is outlined in the HPI above) August 2019 [facility] inpatient records including the consultation note from Dr. Rascon, echocardiogram report, cardiology progress notes and discharge summary I have also reviewed: allergies, current medications, past family history, past medical history, past social history, past surgical history and problem list Review of Systems Constitutional: Negative for weight gain and weight loss. HENT: Negative for hearing loss. Eyes: Negative for blurred vision and visual disturbance. Cardiovascular: Positive for chest pain and palpitations. Negative for claudication, dyspnea on exertion, irregular heartbeat, leg swelling, near- syncope, orthopnea, paroxysmal nocturnal dyspnea and syncope. Respiratory: Negative for cough, hemoptysis, shortness of breath, snoring, sputum production and wheezing. Endocrine: Negative for cold intolerance, heat intolerance and polyuria. Hematologic/Lymphatic: Negative for bleeding problem. Does not bruise/bleed easily. Skin: Negative for color change and rash. Musculoskeletal: Negative for arthritis, falls, joint pain, joint swelling and myalgias. Gastrointestinal: Negative for abdominal pain, heartburn, nausea and vomiting. Genitourinary: Negative for dysuria. Neurological: Negative for dizziness, focal weakness, headaches, light- headedness, numbness and weakness. Psychiatric/Behavioral: Negative for depression. The patient is not nervous/anxious. Allergic/Immunologic: Negative for environmental allergies. Vital Signs: BP 130/82 (BP Location: Left arm, Patient Position: Sitting) Pulse 61 Ht 172.7 cm (5' 8 ) Wt 100.7 kg (222 lb) SpO2 98% BMI 33.75 kg/m?? Physical Exam Vitals reviewed. HENT: Head: Normocephalic and atraumatic. Nose: Nose normal. Eyes: General: No scleral icterus. Conjunctiva/sclera: Conjunctivae normal. Cardiovascular: Rate and Rhythm: Normal rate and regular rhythm. Pulses: Intact distal pulses. Heart sounds: Normal heart sounds. No murmur heard. No friction rub. No gallop. Pulmonary: Effort: Pulmonary effort is normal. No respiratory distress. Breath sounds: Normal breath sounds. No wheezing or rales. Chest: Chest wall: No tenderness. Abdominal: General: Bowel sounds are normal. There is no distension. Palpations: Abdomen is soft. Tenderness: There is no abdominal tenderness. Musculoskeletal: General: Normal range of motion. Cervical back: Neck supple. Skin: General: Skin is warm and dry. Neurological: Mental Status: She is alert and oriented to person, place, and time. Psychiatric: Mood and Affect: Mood normal. No Known Allergies Current Outpatient Medications: acetaminophen ER (TYLENOL) 650 mg 8 hr tablet, Take 1 tablet (650 mg total) by mouth every 8 (eight) hours as needed for pain, Disp: , Rfl: amoxicillin 500 mg capsule, TAKE 4 CAPSULES BY MOUTH 1 HOUR BEFORE DENTAL APPOINTMENT, Disp: , Rfl: atorvastatin (LIPITOR) 20 mg tablet, Take 1 tablet (20 mg total) by mouth nightly, Disp: , Rfl: BIOTIN ORAL, Take by mouth, Disp: , Rfl: cyanocobalamin (vitamin B-12) 1,000 mcg tablet, Take 1 tablet (1,000 mcg total) by mouth daily, Disp: , Rfl: ergocalciferol (VITAMIN D) 50,000 unit capsule, TAKE 1 CAPSULE BY MOUTH WEEKLY, Disp: , Rfl: levothyroxine (SYNTHROID) 88 mcg tablet, Take 1 tablet (88 mcg total) by mouth nanotechnology engineering technologist beforebreakfast, Disp: , Rfl: loratadine (CLARITIN) 10 mg tablet, Take 1 tablet (10 mg total) by mouth daily, Disp: , Rfl: sotaloL (BETAPACE) 80 mg tablet, TAKE 1 TABLET(80 MG) BY MOUTH TWICE DAILY, Disp: 180 tablet, Rfl: 3 Xarelto 20 mg tablet, TAKE 1 TABLET(20 MG) BY MOUTH DAILY, Disp: 90 tablet, Rfl: 3 EKG 12/25/2019: Atrial fibrillation with rapid ventricular response EKG 07/14/2021: Normal sinus rhythm. QTC 467 milliseconds. LAFB. Nonspecific T- wave abnormality. Abnormal EKG EKG 04/25/2023: Normal sinus rhythm. QTC 475. RSR prime. Left axis deviation. EKG 06 18 24: Normal sinus rhythm. Diffuse T-wave inversions concerning for ischemia. Abnormal EKG MPI 02/12/[address] changes. Global left ventricular function is normal. Left ventricular ejection fraction is 72 %. Myocardial perfusion imaging is probably normal. Mid and basal anterior defects resolved with prone imaging and apical anterior improved but did not resolve completely. As such, while likely artifact, I cannot entirely exclude nontransmural infarction. Clinical correlation advised. No clear myocardial ischemia is present. Recommend follow up with benefits director. MPI 05/08/[address] changes. Specificity of the observed ST changes is reduced in light of the abnormal resting ECG. There is no ischemia. There is a partially fixed defect involving the mid anterior/anterolateral tavares that resolves with prone imaging, consistent with attenuation artifact. Global left ventricular function is normal. Left ventricular ejection fraction is 63 %. Assessment: Diagnoses and all orders for this visit: Paroxysmal atrial fibrillation (CMS/HCC) (Primary) In normal sinus rhythm and on anticoagulation Chronic anticoagulation On anticoagulation without bleeding problems ROXANNA (obstructive sleep apnea) Compliant Diastolic dysfunction Stable Encounter for monitoring sotalol therapy QTC slightly prolonged at 473 milliseconds Recurrent chest pain Cannot exclude angina Chest tightness Possibly anginal Abnormal EKG Significantly abnormal ECG showing diffuse T-wave inversions. Concerning for high-grade proximal LAD or even left main stenosis Plan/Recommendations: Continue her sotalol at current dosing for her AFib. EKG today because of sotalol use Because of her ongoing symptoms of chest tightness, exertional fatigue, shortness of breath and significantly abnormal EKG which is worse than previous, I once again recommend coronary angiogram. I have previously done so which she had did refuse but at this point she is willing to proceed with coronary angiogram to define her anatomy. She is otherwise stable. Recommend she continue her Xarelto without change for anticoagulation and atrial fibrillation purposes. Continue her CPAP therapy. Follow-up in 3 months or sooner as clinically indicated Thien Rascon MD, [facility] This note is dictated and transcribed using [employer] Software. Kaiako Kohanga Reo variancesmay occur. Despite proofreading, typographical errors may occur. ANICAL MAINTENANCE SUPERVISOR documented in this encounter Miscellaneous Notes * Addendum Note - Nati Og MA - 06/18/2024 9:15 AM CSTAddended by: ANTI OG on: 06/18/2024 10:25 AM Modules accepted: Orders ANICAL MAINTENANCE SUPERVISOR documented in this encounter Plan of Treatment Not on file documented as of this encounter Procedures Procedure Name Priority Date/Time Associated Diagnosis Comments ELECTROCARDIOGRAM REPORT Routine 024 10:24 AM MECHANICAL MAINTENANCE SUPERVISOR Paroxysmal atrial fibrillation (CMS/HCC) (HCC) Encounter for monitoring sotalol therapy Chest tightness POCT LIPID PANEL Routine 06/18/2024 9:18 AM MECHANICAL MAINTENANCE SUPERVISOR Dyslipidemia documented in this encounter Results * Electrocardiogram Report (06/18/2024 10:24 AM MECHANICAL MAINTENANCE SUPERVISOR) us Thien Rascon MD ECG ORDERABLES Final Res ult * POCT lipid panel (06/18/2024 9:18 AM MECHANICAL MAINTENANCE SUPERVISOR) Cholesterol, POC 165 mg/dL HDL, POC 46 mg/dL Triglycerides, POC 153 mg/dL LDL Cholesterol POC 88 mg/dL Chol/HDL Ratio, POC 1.9 Non-HDL Cholesterol, POC 119 mg/dL Cholesterol Total, POC 165 mg/dL Capillary blood 06/18/2024 9 :18 AM MECHANICAL MAINTENANCE SUPERVISOR us Thien Rascon MD POINT OF CARE TEST ORDERA BLES Final Result documented in this encounter Visit Diagnoses Diagnosis Paroxysmal atrial fibrillation (CMS/HCC) (HCC)- Primary Atrial fibrillation Diastolic dysfunction Unspecified heart disease Chronic anticoagulation Encounter for long-term (current) use of anticoagulants ROXANNA (obstructive sleep apnea) Obstructive sleep apnea (adult) (pediatric) Encounter for monitoring sotalol therapy Chest tightness Other chest pain Abnormal EKG Nonspecific abnormal electrocardiogram (ECG) (EKG) Dyslipidemia Other and unspecified hyperlipidemia documented in this encounter Historical Medications * This list may reflect changes made after this encounter. amoxicillin 500 mg capsule TAKE 4 CAPSULES BY MOUTH 1 HOUR BEFORE DENTAL APPOINTMENT 06/05/2024 BIOTIN ORAL Take by mouth added in this encounter Care Teams Induction Furnace Operator Relationship Specialty Start Date End Date Gardenia Siu MD PCP - General Family Practice 04/17/22 documented as of this encounter
--- OUTSIDE RECORDS SUMMARY | 2024-07-13 12:42 | XMS_ITS | Encounter Summary ---
Author Organization [facility] Medical Group Address [address] [facility] [address] [place] [address] Care Team Providers Care Senior Warehouse Clerk Name Role Phone Aj Orellana MD Primary Care Provider Encounter Details Date Type Department Care Team (Late st Contact Info) Description 08/30/2019 Orders Only [facility] Medical Group Cardiology [address] [facility] [address] [facility] [address] [place] [address] Priyank Limon MD [address] [facility] [address] [place] [address] Social History Tobacco Use Types Packs/Day Years Used Date Smoking Tobacco: Never Comments Unknown Sex and Gender Information Value Date Recorded Sex Assigned at Not on file Legal Sex Female 10:24 PM TURNER MACHINE Gender Identity Female 07/13/2021 9:40 PM TURNER MACHINE Sexual Orientation Straight 07/13/2021 9: 40 PM TURNER MACHINE documented as of this encounter Plan of Treatment Not on file documented as of this encounter Procedures Procedure Name Priority Date/Time Associated Diagnosis Comments CARDIOLOGY DOCUMENT SCAN Routine 08/30/2019 documented in this encounter Results * SCAN - CARDIOLOGY (08/30/2019) Anatomical Region Laterality Modality Other Priyank Limon MD CV CARDIAC SERVICES PROC EDURES Final Result documented in this encounter Visit Diagnoses Not on filedocumented in this encounter Care Teams Senior Warehouse Clerk Relationship Specialty Start Date End Date Aj Orellana MD [address] [place] [address] PCP - General Family Medicine 08/28/19 04/16/22 documented as of this encounter
--- OUTSIDE RECORDS SUMMARY | 2024-07-13 12:42 | XMS_ITS | Encounter Summary ---
Author Organization [facility] Medical Group Address [address] [facility] [address] [place] [address] Care Team Providers Care Big Data Admin Name Role Phone Gardenia Siu MD Primary Care Provider Encounter Details Date Type Department Care Team ([facility] st Contact Info) Description 01/09/2023 Telephone [facility] Cardiology [address] [facility] [address] [place] [address] Thien Rascon MD [facility] [place] [id number] Social History Tobacco Use Types Packs/Day Years Used Date Smoking Tobacco: Never Smokeless Tobacco: Never Alcohol Use Standard Drinks/Week Comments Not Currently 0 (1 standard drink = 0.6 oz pur e alcohol) Comments Unknown Sex and Gender Information Value Date Recorded Sex Assigned at Not on file Legal Sex Female 10:24 PM CUSHION PADDER Gender Identity Female 07/13/2021 9:40 PM CUSHION PADDER Sexual Orientation Straight 07/13/2021 9: 40 PM CUSHION PADDER documented as of this encounter Miscellaneous Notes * Telephone Encounter - Carly Saucedo MA - 01/10/2023 8:34 AM CDT Script sent in for 90 day supply * Telephone Encounter - Julia Contreras - 01/09/2023 2:58 PM CDT Pt requesting her script for sotaloL (BETAPACE) 80 mg tablet 90 day supply be approved and sent to [facility] in [place]. Contact:[phone] documented in this encounter Plan of Treatment Not on file documented as of this encounter Visit Diagnoses Not on filedocumented in this encounter Care Teams Big Data Admin Relationship Specialty Start Date End Date Gardenia Siu MD PCP - General Family Practice 04/17/22 documented as of this encounter
--- OUTSIDE RECORDS SUMMARY | 2024-07-13 12:42 | XMS_ITS | Encounter Summary ---
Author Organization [facility] Address [address] [place] [address] Care Team Providers Care Wind Turbine Installer Name Role Phone Aj Orellana MD Primary Care Provider Encounter Details Date Type Department Care Team (Late st Contact Info) Description 08/31/2019 Orders Only [facility] Cardiology [address] [facility] [address] [place] [address] Priyank Limon MD [address] [place] [address] Social History Tobacco Use Types Packs/Day Years Used Date Smoking Tobacco: Never Comments Unknown Sex and Gender Information Value Date Recorded Sex Assigned at Not on file Legal Sex Female 10:24 PM CLOTH NAPPING SUPERVISOR Gender Identity Female 07/13/2021 9:40 PM CLOTH NAPPING SUPERVISOR Sexual Orientation Straight 07/13/2021 9: 40 PM CLOTH NAPPING SUPERVISOR documented as of this encounter Plan of Treatment Not on file documented as of this encounter Procedures Procedure Name Priority Date/Time Associated Diagnosis Comments CARDIOLOGY DOCUMENT SCAN Routine 08/31/2019 documented in this encounter Results * SCAN - CARDIOLOGY (08/31/2019) Anatomical Region Laterality Modality Other Priyank Limon MD CV CARDIAC SERVICES PROC EDURES Final Result documented in this encounter Visit Diagnoses Not on filedocumented in this encounter Care Teams Wind Turbine Installer Relationship Specialty Start Date End Date Aj Orellana MD [address] [place] [address] PCP - General Family Medicine 08/28/19 04/16/22 documented as of this encounter
--- OUTSIDE RECORDS SUMMARY | 2024-07-13 12:42 | XMS_ITS | Encounter Summary ---
Author Organization [facility] Address [address] [place] [address] Care Team Providers Care Commercial Collections Driver Name Role Phone Aj Orellana MD Primary Care Provider [phone] Encounter Details Date Type Department Care Team (Late st Contact Info) Description 06/03/2020 Telephone [facility] Cardiology [address] [place] [address] Thien Rascon MD [address] [id number] Social History Tobacco Use Types Packs/Day Years Used Date Smoking Tobacco: Never Smokeless Tobacco: Never Alcohol Use Standard Drinks/Week Comments Not Currently 0 (1 standard drink = 0.6 oz pur e alcohol) Comments Unknown Sex and Gender Information Value Date Recorded Sex Assigned at Not on file Legal Sex Female 10:24 PM MANAGER FINANCIAL SERVICES Gender Identity Female 07/13/2021 9:40 PM MANAGER FINANCIAL SERVICES Sexual Orientation Straight 07/13/2021 9: 40 PM MANAGER FINANCIAL SERVICES documented as of this encounter Ordered Prescriptions Prescription Sig Dispense Quantity Refills Last Filled Start Date End Date sotaloL (BETAPACE) 80 mg tabletIndications: Paroxysmal atrial fibrillation (CMS/HCC) (HCC) Take one tab (80 mg) in the morning and one-half tab (40 mg) in the evening. 135 tablet 1 06/03/2020 1 documented in this encounter Miscellaneous Notes * Telephone Encounter - Sierra Gallo RN - 06/03/2020 10:43 AM MANAGER FINANCIAL SERVICES Refill sent. [employer] * Telephone Encounter - Britany Max - 06/03/2020 10:30 AM CST Patient/and or Pharmacy calling to request refills on the following medications: sotalol 80 mg tabs. Pharmacy: [facility] [employer] documented in this encounter Plan of Treatment Not on file documented as of this encounter Visit Diagnoses Diagnosis Paroxysmal atrial fibrillation (CMS/HCC) (HCC) Atrial fibrillation documented in this encounter Discontinued Medications Medication Sig Discontinue Reason Start Date End Da te sotaloL (BETAPACE) 80 mg tabletIndications:Paroxysm al atrial fibrillation (CMS/HCC) (HCC) TAKE 1/2 TABLET(40 MG) BY MOUTH TWICE DAILY Reorder 09/26/2019 06/03/2020 documented as of this encounter Care Teams Commercial Collections Driver Relationship Specialty Start Date End Date Aj Orellana MD [address] [place] [address] PCP - General Family Medicine 08/28/19 04/16/22 documented as of this encounter
--- OUTSIDE RECORDS SUMMARY | 2024-07-13 12:42 | XMS_ITS | Encounter Summary ---
Author Organization [facility] Address [address] [place] [address] Care Team Providers Care Trailhead Construction Worker Name Role Phone Aj Orellana MD Primary Care Provider [phone] Encounter Details Date Type Department Care Team (Late st Contact Info) Description 02/05/2020 Telephone [facility] Cardiology [address] [facility] [address] [place] [address] Bere Lanza NP [address] [facility] [address] [place] [address] Social History Tobacco Use Types Packs/Day Years Used Date Smoking Tobacco: Never Smokeless Tobacco: Never Alcohol Use Standard Drinks/Week Comments Not Currently 0 (1 standard drink = 0.6 oz pur e alcohol) Comments Unknown Sex and Gender Information Value Date Recorded Sex Assigned at Not on file Legal Sex Female 10:24 PM JIG BORER Gender Identity Female 07/13/2021 9:40 PM JIG BORER Sexual Orientation Straight 07/13/2021 9: 40 PM JIG BORER documented as of this encounter Miscellaneous Notes * Telephone Encounter - Radha Taylor RN - 02/05/2020 8:59 AM CDT Note below reviewed in detail. Pt scheduled for [employer]. * Telephone Encounter - Radha Taylor RN - 02/05/2020 8:54 AM CDT ----- Message from Bere Lanza NP sent at 02/04/2020 6:09 PM CDT ----- I saw Ms. Overton for HFU. Please call her to let her know after further review of her hospital records, I saw that Dr. Cohen wanted her to have an outpatient stress test, so I would like to schedule Lexiscan for her. Please explain to her that this is to make sure she does not have any coronary artery disease that has caused her atrial fibrillation to cause problems. documented in this encounter Plan of Treatment Not on file documented as of this encounter Visit Diagnoses Not on filedocumented in this encounter Care Teams Trailhead Construction Worker Relationship Specialty Start Date End Date Aj Orellana MD [address] [place] [address] PCP - General Family Medicine 08/28/19 04/16/22 documented as of this encounter
--- OUTSIDE RECORDS SUMMARY | 2024-07-13 12:42 | XMS_ITS | Encounter Summary ---
Author Organization [facility] Address [address] [place] [address] Care Team Providers Care French Teacher Name Role Phone Gardenia Siu MD Primary Care Provider Encounter Details Date Type Department Care Team ([facility] st Contact Info) Description 05/18/2022 Telephone [facility] Cardiology [address] [place] [address] Bere Lanza NP [address] [place] [address] Social History Tobacco Use Types Packs/Day Years Used Date Smoking Tobacco: Never Smokeless Tobacco: Never Alcohol Use Standard Drinks/Week Comments Not Currently 0 (1 standard drink = 0.6 oz pur e alcohol) Comments Unknown Sex and Gender Information Value Date Recorded Sex Assigned at Not on file Legal Sex Female 10:24 PM LIFTER Gender Identity Female 07/13/2021 9:40 PM LIFTER Sexual Orientation Straight 07/13/2021 9: 40 PM LIFTER documented as of this encounter Miscellaneous Notes * Telephone Encounter - Bere Lanza NP - 05/18/2022 12:20 PM LIFTER I called the patient to let her know the stress test and ECG from 05/08/22 were ok. No further testing is indicated at this time. She reports she is feeling better compared to how she felt when I saw her in the office last month. I reminded her of September 2022 appt but if she has any concerns before then, notify the office. She verbalized understanding and agreed. ER documented in this encounter Plan of Treatment Not on file documented as of this encounter Visit Diagnoses Not on filedocumented in this encounter Care Teams French Teacher Relationship Specialty Start Date End Date Gardenia Siu MD PCP - General Family Practice 04/17/22 documented as of this encounter
--- OUTSIDE RECORDS SUMMARY | 2024-07-13 12:42 | XMS_ITS | Encounter Summary ---
Author Organization [facility] Address [address] [place] [address] Care Team Providers Care Nuclear Fuels Reclamation Engineer Name Role Phone Aj Orellana MD Primary Care Provider [phone] Reason for Visit * Reason Onset Date Comments Needs follow-up appointment 12/28/2019 Encounter Details Date Type Department Care Team ([facility] st Contact Info) Description 12/28/2019 Telephone [facility] Cardiology [address] [place] [address] Isela Cohen MD [address] [place] [address] Needs follow-up appointment Social History Tobacco Use Types Packs/Day Years Used Date Smoking Tobacco: Never Smokeless Tobacco: Never Alcohol Use Standard Drinks/Week Comments Not Currently 0 (1 standard drink = 0.6 oz pur e alcohol) Comments Unknown Sex and Gender Information Value Date Recorded Sex Assigned at Not on file Legal Sex Female 10:24 PM CHILD HEALTH ASSOCIATE Gender Identity Female 07/13/2021 9:40 PM CHILD HEALTH ASSOCIATE Sexual Orientation Straight 07/13/2021 9: 40 PM CHILD HEALTH ASSOCIATE documented as of this encounter Miscellaneous Notes * Telephone Encounter - Sierra Gallo RN - 12/29/2019 10:29 AM CDT Appointment has already been scheduled by Nati SHIPMAN. * Telephone Encounter - Isela Cohen MD - 12/28/2019 6:12 PM CDT Patient admitted last week with AFib RVR, converted to NSR by increasing her sotalol to 80 mg b.i.d.. Has an appointment for an EKG next week but also needs a follow-up appointment with Bere or Dr. Rascon in the next 1-2 months. documented in this encounter Plan of Treatment Not on file documented as of this encounter Visit Diagnoses Not on filedocumented in this encounter Care Teams Nuclear Fuels Reclamation Engineer Relationship Specialty Start Date End Date Aj Orellana MD [address] [place] [address] PCP - General Family Medicine 08/28/19 04/16/22 documented as of this encounter
--- OUTSIDE RECORDS SUMMARY | 2024-07-13 12:42 | XMS_ITS | Encounter Summary ---
Author Organization [facility] Address [address] [place] [address] Phone Care Team Providers Care Wet Finisher Name Role Phone Gardenia Siu MD Primary Care Provider Encounter Details Date Type Department Care Team (Late st Contact Info) Description 04/17/2024 Orders Only [facility] [address] [place] [address] Unknown, Notinfile Social History Tobacco Use Types Packs/Day Years Used Date Smoking Tobacco: Never Smokeless Tobacco: Never Alcohol Use Standard Drinks/Week Comments Not Currently 0 (1 standard drink = 0.6 oz pur e alcohol) Comments Unknown Sex and Gender Information Value Date Recorded Sex Assigned at Not on file Legal Sex Female 10:24 PM SHACTOR Gender Identity Female 07/13/2021 9:40 PM SHACTOR Sexual Orientation Straight 07/13/2021 9: 40 PM SHACTOR documented as of this encounter Plan of Treatment Not on file documented as of this encounter Procedures Procedure Name Priority Date/Time Associated Diagnosis Comments SURGICAL PATHOLOGY Routine 04/17/2024 8 :50 AM CDT documented in this encounter Results * Surgical pathology (04/17/2024 8:50 AM CDT) Skin, shave biopsy 04/17/2024 8:50 AM CDT 04/18/2024 6:39 AM CDT Narrative 04/21/2024 1:10 PM CDT EPIC results best viewed via link to PDF [facility] [address] [place] [address]., ??[address], [place] [address] ? [email or web address] Note to Patients: ??This report may [...] ??04/21/2024 ? Submitting Physician Information: Anjali Dye, [facility], [address] [place] [address] ??[id number], ? DERMATOPATHOLOGY REPORT RESULTS ?? DIAGNOSIS: SKIN, [...] ICD-9 A; ZSD.1411 ? Clerical Data A; 76160 The characteristics of special, immunohistochemical, and immunofluorescence stains and in-situ hybridization tests performed by the [facility] were deemed acceptable in ongoing quality improvement engineer measures and in compliance with regulations drawn from the Clinical Laboratory Improvement Act ni8532 (CLIA '88). Control reactions for all stains performed were deemed adequate and appropriate by a pathologist prior to evaluation of patient tissue. Some diagnoses were rendered with the assistance of laboratory-developed tests utilizing analyte-specific reagents; the performance characteristic of these tests were determined by [facility] and are not cleared or approved by the [place] Food an Drug administration. Laboratory developed test may only be performed in a facility that is certified by the [facility] as a high-complexity laboratory under CLIA '88. These tests are used for clinical purposes and are not investigational. us Notinfile Unknown LAB PATHOLOGY ORDERABLES Final Result documented in this encounter Visit Diagnoses Not on filedocumented in this encounter Care Teams Wet Finisher Relationship Specialty Start Date End Date Gardenia Siu MD PCP - General Family Practice 04/17/22 documented as of this encounter
--- OUTSIDE RECORDS SUMMARY | 2024-07-13 12:42 | XMS_ITS | Encounter Summary ---
Author Organization [facility] Address [address] [place] [address] Care Team Providers Care Dental Treatment Coordinator Name Role Phone Aj Orellana MD Primary Care Provider [phone] Reason for Referral * Diagnostic Imaging (Routine) - Closed Specialty Diagnoses / Procedures Referred By Contac t Referred To Contact Diagnoses Paroxysmal atrial fibrillation (CMS/HCC) (HCC) Recurrent chest pain Procedures NM MPI SPECT (Rest and/or Stress) Multiple Studies Pat Mazariegos MD [id number] [place] [address] Phone: tel: fax: [facility] Referral ID Status Reason Start Date Expiration Date Visits Re quested Visits Authorized [id number] Closed 04/28/2022 06/12/2022 1 1 REPAIRER Reason for Visit * Reason Comments Atrial Fibrillation 6 mo f/u Encounter Details Date Type Department Care Team (Late st Contact Info) Description 07/14/2021 10:45 AM REEL REPAIRER Office Visit [facility] Cardiology [address] [place] [address] Pat Mazariegos MD [address] [place] [address] Paroxysmal atrial fibrillation (CMS/HCC) (HCC) (Primary Dx); Encounter for monitoring sotalol therapy; Chronic anticoagulation; ROXANNA (obstructive sleep apnea); Diastolic dysfunction; Recurrent chest pain Social History Tobacco Use Types Packs/Day Years Used Date Smoking Tobacco: Never Smokeless Tobacco: Never Alcohol Use Standard Drinks/Week Comments Not Currently 0 (1 standard drink = 0.6 oz pur e alcohol) Comments Unknown Sex and Gender Information Value Date Recorded Sex Assigned at Not on file Legal Sex Female 10:24 PM REEL REPAIRER Gender Identity Female 07/13/2021 9:40 PM REEL REPAIRER Sexual Orientation Straight 07/13/2021 9: 40 PM REEL REPAIRER documented as of this encounter Last Filed Vital Signs Vital Sign Reading Time Taken Comments Blood Pressure 120/78 07/14/2021 10:55 AM REEL REPAIRER Pulse 58 07/14/2021 10:55 AM REEL REPAIRER Temperature - - Respiratory Rate - - Oxygen Saturation 97% 07/14/2021 10:55 AM REEL REPAIRER Inhaled Oxygen Concentration - - Weight 108.4 kg (239 lb) 07/14/2021 10:55 AM REEL REPAIRER Height 174 cm (5' 8.5 ) 07/14/2021 10:55 AM REEL REPAIRER Body Mass Index 35.81 07/14/2021 10:55 AM REEL REPAIRER documented in this encounter Progress Notes * Pat Mazariegos MD - 07/14/2021 10:45 AM CST [facility] Cardiology [address] [place] [address] Date of Visit: 09/26/2019 Patient ID: Liz Tai 1950 Chief Complaint: Liz Tai is a 70 y.o. female who is having follow-up after hospitalization for atrial fibrillation with RVR. History of Present Illness: Liz Tai is a 70 y.o. female with a past medical history of hypertension, hyperlipidemia, sleep apnea, hypothyroidism and arthritis. She was experiencing intermittent weakness, dizziness and fatigue for a year more. More recently, her symptoms began happening daily and were accompanied by chest pressure/heaviness. Upon evaluation in her primary care provider's office she was found to be inAFib with RVR and was sent to [facility] on 08/28/2019. She denied feeling any palpitations at any point in time. She endorsed a history of a negative stress test that was performed on 02/25/2019. Dr. Mazariegos met her in consultation. Her echocardiogram showed [...] an outpatient. 09/26/2019 hospital follow-up televisit with PRODUCT SAFETY MANAGER: The patient reports overall feeling well since discharge. She has been using a Fitbit to track her heart rate and it has been in the 60s. She has questions about concomitant use of other medications with her new sotalol and Xarelto. Specifically, sheasked about the ability to take piroxicam (to control arthritis pain), Sudafed (for allergy symptoms), and the antibiotic prophylaxis she needs for dental work. She states she uses her CPAP machine but when she wakes up in the morning it feels like her mask is leaking air. She denies chest pain or any unusual shortness of breath. She denies any [...] paroxysmal nocturnal dyspnea orthopnea. Hospital follow-up with PRODUCT SAFETY MANAGER 02/04/2020: At the last visit, she was [...] cope, paroxysmal nocturnal dyspnea, bleeding problems, edema Records that I personally reviewed on the day of this visit include: (the interpretation is outlined in the HPI above) August 2019 [facility] inpatient records including the consultation note from Dr. Mazariegos, echocardiogram report, cardiology progress notes and discharge [...] Negative for environmental allergies. Vital Signs: BP 120/78 (BP Location: Left arm, Patient Position: Sitting) Pulse 58 Ht 174 cm (5' 8.5 ) Wt 108.4 kg (239 lb) SpO2 97% BMI 35.81 kg/m?? Physical Exam Vitals reviewed. HENT: Head: [...] normal. No Known Allergies Current Outpatient Medications: ??? acetaminophen ER (TYLENOL) 650 mg 8 hr tablet, Take 650 mg by mouth every 8 (eight) hours as needed for pain, Disp: , Rfl: ??? atorvastatin (LIPITOR) 20 mg tablet, Take 20 mg by mouth nightly, Disp: , Rfl: ??? levothyroxine (SYNTHROID) 88 mcg tablet, Take 88 mcg by mouth event services manager before breakfast, Disp: , Rfl: ??? sotaloL (BETAPACE) 80 mg tablet, TAKE 1 TABLET BY MOUTH EVERY MORNING AND ONE-HALF TABLET EVERYEVENING, Disp: 135 tablet, Rfl: 0 ??? Xarelto 20 mg tablet, TAKE 1 TABLET(20 MG) BY MOUTH DAILY, Disp: 90 tablet, Rfl: 0 EKG 12/25/2019: Atrial fibrillation with rapid ventricular response EKG 07/14/2021: Normal sinus rhythm. QTC 467 milliseconds. LAFB. Nonspecific T- wave abnormality. Abnormal EKG MPI 02/12/[address] [...] ischemia is present. Recommend follow up with carry out clerk and shelf stocker. Assessment: Diagnoses and all orders for this visit: Paroxysmal atrial fibrillation (CMS/HCC) (Primary) In normal sinus rhythm and on anticoagulation Chronic anticoagulation On anticoagulation without bleeding problems ROXANNA (obstructive sleep apnea) Compliant Diastolic dysfunction Stable Encounter for monitoring sotalol therapy QTC normal Recurrent chest pain Cannot exclude angina Plan/Recommendations: EKG today to evaluate QTC given sotalol use Because of her recurrent chest pain, I have recommend a coronary artery CT scan but she does not want to go to [place] at this point because of COVID surge. She is willing to come to this office though for repeat stress test. Will order Lexiscan myocardial perfusion study. She cannot exercise on treadmill because of orthopedic issues. She walks with a cane Follow-up in 6 months or sooner as clinically indicated Pat Mazariegos MD, [facility] This note is dictated and transcribed using [employer] Direct Software. Code Enforcement Supervisor variancesmay occur. Despite proofreading, typographical errors may occur. REPAIRER documented in this encounter Miscellaneous Notes * Addendum Note - Nati Og MA - 07/14/2021 10:45 AM CSTAddended by: NATI OG on: 07/14/2021 11:37 AM Modules accepted: Orders REPAIRER documented in this encounter Plan of Treatment Not on file documented as of this encounter Procedures Procedure Name Priority Date/Time Associated Diagnosis Comments ECG 12-LEAD Routine 07/14/2021 Paroxysmal atrial fibrillation (CMS/HCC) (HCC) documented in this encounter Results * NM MPI SPECT (Rest and/or Stress) Multiple Studies (05/08/2022 10:42 AM REEL REPAIRER) Anatomical Region Laterality Modality Body N/A Nuclear Medicine 05/08/2022 9:36 AM REEL REPAIRER Narrative 05/08/2022 5:03 PM REEL REPAIRER [facility] Cardiology [address] [address], [place] [address] P:[phone] P:[phone] MPI Imaging Report ADDENDUM Patient Name: LIZ TAI : 1950 Study Date: 05/08/2022 9:36:18 AM Gender: F Tech: SERA MENARD Location: [facility] Provider: Anthony MAZARIEGOSight(Cm): 174 BSA: Weight(Kg): 105.7 BMI: 34.91Order Provider: PAT MAZARIEGOS - PHYSICIAN: Referring Physician: Dr. Siu. HCG Physician: Isaac Mazariegos M.D. Interpreting Physician: Park Ram D.O. Stress Supervision: Bryan Gayle M.D. PROCEDURES: Myocardial perfusion imaging with Tc99M Sestamibi SPECT at rest and stress post regadenoson (Lexiscan) infusion. INDICATIONS: Atrial Fibrillation, Chest Pain, Hypertension, Family Hx CAD, and High Cholesterol. FINDINGS: Procedural Findings: One day rest/stress was used. Tc99m Sestamibi injected IV at rest was 8.6 millicuries. 24.4 millicuries of Tc99M Sestamibi injected IV during Lexiscan stress. Lexiscan 0.4mg administered IV over 10 seconds. Patient had no symptoms during stress test. Baseline heart rate was 68 BPM. Maximum Heart Rate Achieved was: 113 BPM. Baseline blood pressure was 136/86 mmHg. Post Stress Blood Pressure was 122/82 mmHg. Termination: Protocol complete. Resting ECG: Sinus rhythm. Cannot r/o anterior infarct - age uncertain. Post ECG: No diagnostic ST changes. Specificity of the observed ST changes is reduced in light of the abnormal resting ECG. Arrhythmia: No arrhythmias seen. Perfusion Findings: Technical quality of study is good. Prone imaging was performed. Left ventricle cavity size at rest is normal. Left ventricle cavity size with stress is unchanged. A TID of 0.79 was automatically calculated. defect 1: Size is medium. Severity is mild. Location of defect is in the basal anterolateral segment, mid anterior segment and mid anterolateral segment. Reversibility is partial. Type of Type of defect is attenuation artifact. Resolved with prone imaging. LV Function: Global left ventricular function is normal. Left ventricular ejection fraction is 63 %. CONCLUSIONS: No diagnostic ST changes. Specificity of the observed ST changes is reduced in light of the abnormal resting ECG. There is no ischemia. There is a partially fixed defect involving the mid anterior/anterolateral tavares that resolves with prone imaging, consistent with attenuation artifact. Global left ventricular function is normal. Left ventricular ejection fraction is 63 %. Electronically Signed By: Bryan Gayle MD 2022-05-08 17:03:02 REEL REPAIRER Electronically Signed By: Park Ram DO, [facility], [facility], [facility] 2022-05-09 09:38:25 REEL REPAIRER CC: CC: CC: Procedure Note Ton Gayle MD / Park Ram DO - 05/09/2022 [facility] Cardiology [address], [place] [address], [place] [address] P:[phone] P:[phone] MPI Imaging Report ADDENDUM Patient Name: LIZ TAIPatient ID: [id number] : [id number] Date: 05/08/2022 9:36:18 AM Gender: FAccession #: [id number] Tech: , [facility] [place] Ref Provider: Nano MAZARIEGOS(Cm): 174 BSA: Weight(Kg): 105.7 BMI: 34.91Order Provider: PAT MAZARIEGOS - PHYSICIAN: Referring Physician: Dr. Siu. HCG Physician: Isaac Mazariegos M.D.Interpreting Physician: Park Ram D.O. Stress Supervision: Bryan Gayle M.D. PROCEDURES: Myocardial perfusion imaging with Tc99M Sestamibi SPECT at rest and stresspost regadenoson (Lexiscan) infusion. INDICATIONS: Atrial Fibrillation, Chest Pain, Hypertension, Family Hx CAD, and HighCholesterol. FINDINGS: Procedural Findings: One day rest/stress was used. Tc99m Sestamibi injected IV at rest was 8.6millicuries. 24.4 millicuries of Tc99M Sestamibi injected IV during Lexiscan stress.Lexiscan 0.4mg administered IV over 10 seconds. Patient had no symptoms during stresstest. Baseline heart rate was 68 BPM. Maximum Heart Rate Achieved was: 113 BPM. Baselineblood pressure was 136/86 mmHg. Post Stress Blood Pressure was 122/82 mmHg. Termination: Protocol complete. Resting ECG: Sinus rhythm. Cannot r/o anterior infarct - age uncertain. Post ECG: No diagnostic ST changes. Specificity of the observed ST changes isreduced in light of the abnormal resting ECG. Arrhythmia: No arrhythmias seen. Perfusion Findings: Technical quality of study is good. Prone imaging was performed. Leftventricle cavity size at rest is normal. Left ventricle cavity size with stress isunchanged. A TID of 0.79 was automatically calculated. defect 1: Size is medium. Severity is mild. Location of defect is in the basalanterolateral segment, mid anterior segment and mid anterolateral segment. Reversibilityis partial. Type of Type of defect is attenuation artifact. Resolved with proneimaging. LV Function: Global left ventricular function is normal. Left ventricular ejectionfraction is 63 %. CONCLUSIONS: No diagnostic ST changes. Specificity of the observed ST changes isreduced in light of the abnormal resting ECG. There is no ischemia. There is a partially fixed defect involving the mid anterior/anterolateral tavares that resolves with prone imaging, consistentwith attenuation artifact. Global left ventricular function is normal. Left ventricular ejectionfraction is 63 %. Electronically Signed By: Bryan Gayle MD 2022-05-08 17:03:02 REEL REPAIRER Electronically Signed By: Park Ram DO, [facility], [facility], [facility] 2022-05-09 09:38:25 REEL REPAIRER CC: CC: CC: Pat Mazariegos MD IMG NM PROCEDURES Edited Result - Final * ECG 12 lead (07/14/2021) Pat Mazariegos MD ECG ORDERABLES Final Res ult documented in this encounter Visit Diagnoses Diagnosis Paroxysmal atrial fibrillation (CMS/HCC) (HCC)- Primary Atrial fibrillation Encounter for monitoring sotalol therapy Chronic anticoagulation Encounter for long-term (current) use of anticoagulants ROXANNA (obstructive sleep apnea) Obstructive sleep apnea (adult) (pediatric) Diastolic dysfunction Unspecified heart disease Recurrent chest pain Unspecified chest pain Paroxysmal atrial fibrillation (CMS/HCC) (HCC) Atrial fibrillation Recurrent chest pain Unspecified chest pain documented in this encounter Discontinued Medications Medication Sig Discontinue Reason Start Date End Da te cholecalciferol (VITAMIN D-3) 50,000 unit capsule Take 50,000 Units by mouth once a week Therapy completed 10/21/2020 07/14/2021 documented as of this encounter Care Teams Dental Treatment Coordinator Relationship Specialty Start Date End Date Aj Orellana MD [address] [place] [address] PCP - General Family Medicine 08/28/19 04/16/22 documented as of this encounter
--- OUTSIDE RECORDS SUMMARY | 2024-07-13 12:42 | XMS_ITS | Encounter Summary ---
Author Organization [facility] Address [address] [place] [address] Care Team Providers Care Soldering Technician Name Role Phone Gardenia Siu MD Primary Care Provider Reason for Visit * Reason Comments Atrial Fibrillation 6 mo f/u Encounter Details Date Type Department Care Team ([facility] Contact Info) Description 10/18/2022 2:15 PM CDT Office Visit [facility] Cardiology [address] [place] [address] Thien Rascon MD [id number] Paroxysmal atrial fibrillation (CMS/HCC) (HCC) (Primary Dx); ROXANNA (obstructive sleep apnea); Chronic anticoagulation; Diastolic dysfunction; Dyslipidemia Social History Tobacco Use Types Packs/Day Years Used Date Smoking Tobacco: Never Smokeless Tobacco: Never Alcohol Use Standard Drinks/Week Comments Not Currently 0 (1 standard drink = 0.6 oz pur e alcohol) Comments Unknown Sex and Gender Information Value Date Recorded Sex Assigned at Not on file Legal Sex Female 10:24 PM WALLBOARD WORKER Gender Identity Female 07/13/2021 9:40 PM WALLBOARD WORKER Sexual Orientation Straight 07/13/2021 9: 40 PM WALLBOARD WORKER documented as of this encounter Last Filed Vital Signs Vital Sign Reading Time Taken Comments Blood Pressure 108/64 10/18/2022 2:16 PM CDT Pulse 68 10/18/2022 2:16 PM CDT Temperature - - Respiratory Rate - - Oxygen Saturation 99% 10/18/2022 2:16 PM CDT Inhaled Oxygen Concentration - - Weight 105.7 kg (233 lb) 10/18/2022 2:16 PM CDT Height 172.7 cm (5' 8 ) 10/18/2022 2:16 PM CDT Body Mass Index 35.43 10/18/2022 2:16 PM CDT documented in this encounter Progress Notes * Thien Rascon MD - 10/18/2022 2:15 PM CDT [facility] Cardiology [address] [place] [address] Date of Visit: 10/18/2022 Patient ID: Liz Overton 1950 Chief Complaint: Liz Overton is a 72 y.o. female who is having follow-up after hospitalization for atrial fibrillation with RVR. History of Present Illness: Liz Overton is a 72 y.o. female with a past medical history of hypertension, hyperlipidemia, sleep apnea, hypothyroidism and arthritis. She was experiencing intermittent weakness, dizziness and fatigue for a year more. More recently, her symptoms began happening daily and were accompanied by chest pressure/heaviness. Upon evaluation in her primary care provider's office she was found to be inAFib with RVR and was sent to [facility] on 08/28/2019. She denied feeling any palpitations [...] an outpatient. 09/26/2019 hospital follow-up televisit with VISUAL COORDINATOR: The patient reports overall feeling well since [...] paroxysmal nocturnal dyspnea orthopnea. Hospital follow-up with VISUAL COORDINATOR 02/04/2020: At the last visit, she was [...] dyspnea, bleeding problems, edema Follow-up visit with VISUAL COORDINATOR 04/17/2022: She missed her follow-up appointment in December because she had COVID. Ever since then she has felt tired and somewhat weak. From August to mid November she had no episodes of AFib but in December she had 2, March she has 3, and she had 1 last week. HipWay shows a heart rate of 150s to [...] paroxysmal nocturnal dyspnea orthopnea, unusual edema . Records that I personally reviewed on the day of this visit include: (the interpretation is outlined in the HPI above) August 2019 [facility] inpatient records including the consultation note from [...] Negative for environmental allergies. Vital Signs: BP 108/64 (BP Location: Right arm, Patient Position: Sitting) Pulse 68 Ht 172.7 cm (5' 8 ) Wt105.7 kg (233 lb) SpO2 99% BMI 35.43 kg/m?? Physical Exam Vitals reviewed. HENT: Head: [...] as needed for pain, Disp: , Rfl: atorvastatin (LIPITOR) 20 mg tablet, Take 1 tablet (20 mg total) by mouth nightly, Disp: , Rfl: cyanocobalamin (vitamin B-12) 1,000 mcg tablet, Take 1 tablet (1,000 mcg total) by mouth daily, Disp: , Rfl: levothyroxine (SYNTHROID) 88 mcg tablet, Take 1 tablet (88 mcg total) by mouth box blank machine operator helper beforebreakfast, Disp: , Rfl: sotaloL (BETAPACE) 80 mg tablet, Take 1 tablet (80 mg total) by mouth 2 (two) times a day, Disp: 180 tablet, Rfl: 0 Xarelto 20 mg tablet, TAKE 1 TABLET(20 MG) BY MOUTH DAILY, Disp: 90 tablet, Rfl: 1 EKG 12/25/2019: Atrial fibrillation with rapid ventricular [...] ischemia is present. Recommend follow up with dental billing specialist. MPI 05/08/[address] changes. Specificity [...] Recurrent chest pain Cannot exclude angina Plan/Recommendations: In office lipid panel today showed total cholesterol 166, HDL 54, triglycerides 177, LDL 76 She is otherwise stable. Recommend she continue her Xarelto without change for anticoagulation and atrial fibrillation purposes. Continue her CPAP therapy. Continue sotalol at current dosing. OfferedEP referral but she does not feel like her symptoms are that frequent or significant enough to warrant further evaluation or consideration of ablation. Follow-up in 6 months or sooner as clinically indicated Thien Rascon MD, [facility] This note is dictated and transcribed using [employer] Direct Software. Rn Birthing variancesmay occur. Despite proofreading, typographical errors may occur. documented in this encounter Miscellaneous Notes * Addendum Note - Nati Og MA - 10/18/2022 2:15 PM CDTAddended by: NATI OG on: 10/18/2022 02:48 PM Modules accepted: Orders documented in this encounter Plan of Treatment Not on file documented as of this encounter Procedures Procedure Name Priority Date/Time Associated Diagnosis Comments POCT LIPID PANEL Routine 10/18/2022 2:47 PM CDT Dyslipidemia documented in this encounter Results * POCT lipid panel (10/18/2022 2:47 PM CDT) Cholesterol, POC 166 mg/dL HDL, POC 54 mg/dL Triglycerides, POC 177 mg/dL LDL Cholesterol POC 76 mg/dL Chol/HDL Ratio, POC 1.4 Non-HDL Cholesterol, POC 112 mg/dL Cholesterol Total, POC 166 mg/dL Capillary blood 10/18/2022 2 :47 PM CDT Thien Rascon MD POINT OF CARE TEST ORDERA BLES Final Result documented in this encounter Visit Diagnoses Diagnosis Paroxysmal atrial fibrillation (CMS/HCC) (HCC)- Primary Atrial fibrillation ROXANNA (obstructive sleep apnea) Obstructive sleep apnea (adult) (pediatric) Chronic anticoagulation Encounter for long-term (current) use of anticoagulants Diastolic dysfunction Unspecified heart disease Dyslipidemia Other and unspecified hyperlipidemia documented in this encounter Care Teams Soldering Technician Relationship Specialty Start Date End Date Gardenia Siu MD PCP - General Family Practice 04/17/22 documented as of this encounter
--- OUTSIDE RECORDS SUMMARY | 2024-07-13 12:42 | XMS_ITS | Encounter Summary ---
Author Organization [facility] Address [address] [place] [address] Care Team Providers Care Pneumatic Tester Name Role Phone Aj Orellana MD Primary Care Provider [phone] Reason for Visit * Reason Comments Atrial Fibrillation 3 mo f/u Encounter Details Date Type Department Care Team ([facility] Contact Info) Description 01/06/2021 10:45 AM CDT Office Visit [facility] Cardiology [address] [place] [address] Thien Rascon MD [address] [id number] Paroxysmal atrial fibrillation (CMS/HCC) (Primary Dx); ROXANNA (obstructive sleep apnea); Chronic anticoagulation; Diastolic dysfunction; Encounter for monitoring sotalol therapy; Dyslipidemia Social History Tobacco Use Types Packs/Day Years Used Date Smoking Tobacco: Never Smokeless Tobacco: Never Alcohol Use Standard Drinks/Week Comments Not Currently 0 (1 standard drink = 0.6 oz pur e alcohol) Comments Unknown Sex and Gender Information Value Date Recorded Sex Assigned at Not on file Legal Sex Female 10:24 PM HR SPECIALIST Gender Identity Female 07/13/2021 9:40 PM HR SPECIALIST Sexual Orientation Straight 07/13/2021 9: 40 PM HR SPECIALIST documented as of this encounter Last Filed Vital Signs Vital Sign Reading Time Taken Comments Blood Pressure 120/64 01/06/2021 11:08 AM CDT Pulse 72 01/06/2021 11:08 AM CDT Temperature - - Respiratory Rate - - Oxygen Saturation 97% 01/06/2021 11:08 AM CDT Inhaled Oxygen Concentration - - Weight 105.7 kg (233 lb) 01/06/2021 11:08 AM CDT Height 174 cm (5' 8.5 ) 01/06/2021 11:08 AM CDT Body Mass Index 34.91 01/06/2021 11:08 AM CDT documented in this encounter Progress Notes * Thien Rascon MD - 01/06/2021 10:45 AM CDT [facility] Cardiology [address] [place] [address] Date of Visit: 09/26/2019 Patient ID: Liz Overton [id number] Chief Complaint: Liz Overton is a 70 y.o. female who is having follow-up after hospitalization for atrial fibrillation with RVR. History of Present Illness: Liz Overton is a 70 y.o. female with a past medical history of hypertension, hyperlipidemia, sleep apnea, hypothyroidism and arthritis. She was experiencing intermittent weakness, dizziness and fatigue for a year more. More recently, her symptoms began happening daily and were accompanied by chest pressure/heaviness. Upon evaluation in her primary care provider's office she was found to be inAFib with RVR and was sent to [facility] on 08/28/2019. She denied feeling any palpitations [...] an outpatient. 09/26/2019 hospital follow-up televisit with AUTOMATIC PROFILE SANDER OPERATOR: The patient reports overall feeling well since [...] paroxysmal nocturnal dyspnea orthopnea. Hospital follow-up with AUTOMATIC PROFILE SANDER OPERATOR 02/04/2020: At the last visit, she was [...] nocturnal dyspnea, orthopnea, edema, shortness of breath Records that I personally reviewed on the day of this visit include: (the interpretation is outlined in the HPI above) August 2019 [facility] inpatient records including the consultation note from [...] vision and visual disturbance. Cardiovascular: Positive for palpitations. Negative for chest pain, claudication, dyspnea on exertion, irregular heartbeat, leg [...] Negative for environmental allergies. Vital Signs: BP 120/64 (BP Location: Right arm, Patient Position: Sitting) Pulse 72 Ht 174 cm (5' 8.5 ) Wt105.7 kg (233 lb) SpO2 97% BMI 34.91 kg/m?? Physical Exam Vitals reviewed. HENT: Head: [...] by mouth nightly, Disp: , Rfl: ??? cholecalciferol (VITAMIN D-3) 50,000 unit capsule, Take 50,000 Units by mouth once a week, Disp: , Rfl: ??? levothyroxine (SYNTHROID) 88 mcg tablet, Take 88 mcg by mouth aviation warfare systems operator before breakfast, Disp: , Rfl: ??? sotaloL (BETAPACE) 80 mg tablet, TAKE 1 TABLET BY MOUTH EVERY MORNING AND ONE-HALF TABLET EVERYEVENING, Disp: 135 tablet, Rfl: 1 ??? Xarelto 20 mg tablet, TAKE 1 TABLET(20 MG) BY MOUTH DAILY, Disp: 90 tablet, Rfl: 0 EKG 12/25/2019: Atrial fibrillation with rapid ventricular response MPI 02/12/[address] changes. Global [...] ischemia is present. Recommend follow up with live hanger. Assessment: Diagnoses and all orders for this visit: Paroxysmal atrial fibrillation (CMS/HCC) (Primary) In normal sinus rhythm and on anticoagulation Chronic anticoagulation On anticoagulation without bleeding problems ROXANNA (obstructive sleep apnea) Compliant Diastolic dysfunction Stable Encounter for monitoring sotalol therapy Plan/Recommendations: She will need an EKG at next visit to evaluate QTC given sotalol use. Otherwise at this point, she is stable. I recommend she continue current drug regimen without change. Follow-up in 6 months or sooner as clinically indicated Thien Rascon MD, [facility] This note is dictated and transcribed using [employer] Direct Software. Corporate Director Talent Assessment variancesmay occur. Despite proofreading, typographical errors may occur. documented in this encounter Miscellaneous Notes * Addendum Note - Nati Og MA - 01/06/2021 10:45 AM CDTAddended by: NATI OG on: 01/06/2021 12:11 PM Modules accepted: Orders documented in this encounter Plan of Treatment Not on file documented as of this encounter Procedures Procedure Name Priority Date/Time Associated Diagnosis Comments POCT LIPID PANEL Routine 01/06/2021 12:1 2 PM CDT Dyslipidemia documented in this encounter Results * POCT lipid panel (01/06/2021 12:12 PM CDT) Cholesterol, POC 153 mg/dL HDL, POC 40 mg/dL Triglycerides, POC 122 mg/dL LDL Cholesterol POC 89 mg/dL Chol/HDL Ratio, POC 3.9 Non-HDL Cholesterol, POC 113 mg/dL Cholesterol Total, POC 153 mg/dL Capillary blood 01/06/2021 1 2:12 PM CDT Thien Rascon MD POINT OF CARE TEST ORDERA BLES Final Result documented in this encounter Visit Diagnoses Diagnosis Paroxysmal atrial fibrillation (CMS/HCC) (HCC)- Primary Atrial fibrillation ROXANNA (obstructive sleep apnea) Obstructive sleep apnea (adult) (pediatric) Chronic anticoagulation Encounter for long-term (current) use of anticoagulants Diastolic dysfunction Unspecified heart disease Encounter for monitoring sotalol therapy Dyslipidemia Other and unspecified hyperlipidemia documented in this encounter Historical Medications * This list may reflect changes made after this encounter. acetaminophen ER (TYLENOL) 650 mg 8 hr tablet Take 1 tablet (650 mg total) by mouth every 8 (eight) hours as needed for pain atorvastatin (LIPITOR) 20 mg tablet Take 1 tablet (20 mg total) by mouth nightly 10/21/2020 cholecalciferol (VITAMIN D-3) 50,000 unit capsule Take 50,000 Units by mouth once a week 10/21/2020 07/14/2021 added in this encounter Care Teams Pneumatic Tester Relationship Specialty Start Date End Date Aj Orellana MD [address] [place] [address] PCP - General Family Medicine 08/28/19 04/16/22 documented as of this encounter
--- OUTSIDE RECORDS SUMMARY | 2024-07-13 12:42 | XMS_ITS | Encounter Summary ---
Author Organization [facility] Address [address] [place] [address] Care Team Providers Care Student Career Development Specialist Name Role Phone Gardenia Siu MD Primary Care Provider Reason for Visit * Reason Comments Atrial Fibrillation EKG only visit * Cardiology (Routine) - Closed Specialty Diagnoses / Procedures Referred By Contac t Referred To Contact Diagnoses Encounter for monitoring sotalol therapy Procedures ECG 12 lead Bere Lanza NP [address] [address] Phone: tel: fax: [facility] Referral ID Status Reason Start Date Expiration Date Visits Re quested Visits Authorized [id number] Closed 04/17/2022 05/17/2023 1 1 Encounter Details Date Type Department Care Team (Latest Contact Info) Description 05/08/2022 11:15 AM BED WORKER Procedure visit [facility] Cardiology [address] [place] [id number] Encounter for monitoring sotalol therapy Social History Tobacco Use Types Packs/Day Years Used Date Smoking Tobacco: Never Smokeless Tobacco: Never Alcohol Use Standard Drinks/Week Comments Not Currently 0 (1 standard drink = 0.6 oz pur e alcohol) Comments Unknown Sex and Gender Information Value Date Recorded Sex Assigned at Not on file Legal Sex Female 10:24 PM BED WORKER Gender Identity Female 07/13/2021 9:40 PM BED WORKER Sexual Orientation Straight 07/13/2021 9: 40 PM BED WORKER documented as of this encounter Progress Notes * Nati Og MA - 05/08/2022 11:15 AM CST Patient here for EKG for change in sotalol dose. EKG performed and given to KISHORE Tovar for review. WORKER documented in this encounter Plan of Treatment Not on file documented as of this encounter Procedures Procedure Name Priority Date/Time Associated Diagnosis Comments ECG 12-LEAD Routine 05/08/2022 Encounter for monitoring sotalol therapy documented in this encounter Results * ECG 12 lead (05/08/2022) us Bere Lanza ENERGY MANAGEMENT SPECIALIST ECG ORDERABLES Final Res ult documented in this encounter Visit Diagnoses Diagnosis Encounter for monitoring sotalol therapy documented in this encounter Care Teams Student Career Development Specialist Relationship Specialty Start Date End Date Gardenia Siu MD PCP - General Family Practice 04/17/22 documented as of this encounter
--- OUTSIDE RECORDS SUMMARY | 2024-07-13 12:42 | XMS_ITS | Encounter Summary ---
Author Organization [facility] Address [address] [facility] [address] [place] [address] Care Team Providers Care Hatchery Manager Name Role Phone Aj Orellana MD Primary Care Provider [phone] Reason for Referral * Diagnostic Imaging (Routine) - Closed Specialty Diagnoses / Procedures Referred By Contac t Referred To Contact Diagnoses Paroxysmal atrial fibrillation (CMS/HCC) (HCC) Procedures NM MPI SPECT (Rest and/or Stress) Multiple Studies Bere Cool NP [address] [address] Phone: tel: fax: [facility] Referral ID Status Reason Start Date Expiration Date Visits Re quested Visits Authorized [id number] Closed 02/04/2020 03/05/2021 1 1 Reason for Visit * Reason Comments Atrial Fibrillation Encounter Details Date Type Department Care Team ([facility] Contact Info) Description 02/04/2020 2:00 PM CDT Office Visit [facility] Cardiology [address] [facility] [address] [place] [address] Bere Cool NP [address] [facility] [address] [address] Paroxysmal atrial fibrillation (CMS/HCC) (Primary Dx); Encounter for monitoring sotalol therapy; Chronic anticoagulation; Hospital discharge follow-up; Dyslipidemia Social History Tobacco Use Types Packs/Day Years Used Date Smoking Tobacco: Never Smokeless Tobacco: Never Alcohol Use Standard Drinks/Week Comments Not Currently 0 (1 standard drink = 0.6 oz pur e alcohol) Comments Unknown Sex and Gender Information Value Date Recorded Sex Assigned at Not on file Legal Sex Female 10:24 PM PRELIMINARY SCHOOL PSYCHOLOGIST Gender Identity Female 07/13/2021 9:40 PM PRELIMINARY SCHOOL PSYCHOLOGIST Sexual Orientation Straight 07/13/2021 9: 40 PM PRELIMINARY SCHOOL PSYCHOLOGIST documented as of this encounter Last Filed Vital Signs Vital Sign Reading Time Taken Comments Blood Pressure 134/74 02/04/2020 2:32 PM CDT Pulse 60 02/04/2020 2:32 PM CDT Temperature - - Respiratory Rate - - Oxygen Saturation 97% 02/04/2020 2:32 PM CDT Inhaled Oxygen Concentration - - Weight 108 kg (238 lb) 02/04/2020 2:32 PM CDT Height - - Body Mass Index 35.66 12/25/2019 11:54 AM CDT documented in this encounter Progress Notes * Bere Cool NP - 02/04/2020 2:00 PM CDT Images from the original note were not included. [facility] Cardiology [address] [place] [address] Date of Visit: 02/04/2020 Patient ID: Liz Tai 1950 Chief Complaint: Liz Tai is a 69 y.o. female who is an established patient of Dr. Rascon with a history of atrial fibrillation, returning to the office after she was admitted for treatment of AFib with RVR, started on sotalol and cardioverted. History of Present Illness: Liz Tai is a 69 y.o. female with a past medical history of hypertension, hyperlipidemia, sleep apnea, hypothyroidism and arthritis. She was experiencing intermittent weakness, dizziness and fatigue for a year more. More recently, her symptoms began happening daily and were accompanied by chest pressure/heaviness. Upon evaluation in her primary care provider's office she was found to be inAFib with RVR and was sent to [facility] on 08/28/2019. She denied feeling [...] an outpatient. 09/26/2019 hospital follow-up televisit with MANUAL TRAINING TEACHER: The patient reports overall feeling well since [...] She has been having significant spells where she feels really poorly. She will have 4 5 episodes per month in which it will last for a couple days were she feels really quite tired and occasionally feels palpitations. She does also feel lightheadedness as well as a generalized chest tightness and nausea. She has back pain with as well. No syncope, edema, paroxysmal nocturnal dyspnea orthopnea. Hospital follow-up with MANUAL TRAINING TEACHER 02/04/2020: At the last visit, she was [...] months of lifestyle modification before medical therapy. Records that I personally reviewed on the day of this visit include: (the interpretation is outlined in the HPI above) 12/25/[address] Rascon, subsequent ECG tracings done in the office, today's ECG andpoint of care lipid panel result I have also reviewed: allergies, current medications, past family history, past medical history, past social history, past surgical history and problem list Review of Systems Constitution: Positive for malaise/fatigue. Negative for diaphoresis, fever, weight gain and weightloss. HENT: Negative for hearing loss. Eyes: Negative for visual disturbance. Cardiovascular: Negative for chest pain, claudication, dyspnea on exertion, leg swelling, orthopnea, palpitations, paroxysmal nocturnal dyspnea and syncope. Respiratory: Negative for cough, hemoptysis, shortness of breath, snoring and wheezing. Hematologic/Lymphatic: Does not bruise/bleed easily. Skin: Negative for poor wound healing and rash. Musculoskeletal: Negative for joint pain and myalgias. Gastrointestinal: Negative for heartburn, nausea and vomiting. Genitourinary: Negative for hematuria. Neurological: Negative for dizziness, headaches and light-headedness. Psychiatric/Behavioral: Negative for depression. The patient is not nervous/anxious. Vital Signs: BP 134/74 Pulse 60 Wt 108 kg (238 lb) SpO2 97% BMI 35.66 kg/m?? Physical Exam Constitutional: She is oriented to person, place, and time. She appears well- developed. No distress. Obese HENT: Head: Normocephalic and atraumatic. Nose: Nose normal. Wearing a mask Eyes: Pupils are equal, round, and reactive to light. Conjunctivae and EOM are normal. No scleral icterus. Neck: Normal range of motion. No JVD present. No tracheal deviation present. Cardiovascular: Normal rate, regular rhythm and normal heart sounds. No murmur heard. Pulmonary/Chest: Effort normal and breath sounds normal. No respiratory distress. Abdominal: Soft. Bowel sounds are normal. There is no abdominal tenderness. Musculoskeletal: Normal range of motion. General: No edema. Neurological: She is alert and oriented to person, place, and time. Skin: Skin is warm and dry. Psychiatric: She has a normal mood and affect. No Known Allergies Current Outpatient Medications: ??? levothyroxine (SYNTHROID) 88 mcg tablet, Take 88 mcg by mouth admissions dean before breakfast, Disp: , Rfl: ??? sotaloL (BETAPACE) 80 mg tablet, TAKE 1/2 TABLET(40 MG) BY MOUTH TWICE DAILY (Patient taking differently: Take 80 mg in the am and 40 mg in the pm.), Disp: 90 tablet, Rfl: 3 ??? Xarelto 20 mg tablet, Take 1 tablet (20 mg total) by mouth daily, Disp: 90 tablet, Rfl: 3 No results found for: POTASSIUM, BUNSER, CREATININE, CHOL, TRIG, LDL, LDLCALC, HDL Assessment: Diagnoses and all orders for this visit: Paroxysmal atrial fibrillation (CMS/[facility]) (Primary) Encounter for monitoring sotalol therapy Chronic anticoagulation Hospital discharge follow-up Dyslipidemia Plan/Recommendations: Atrial fibrillation is currently quiescent with sotalol. QT interval is appropriate. She is no longer bradycardic. Continue sotalol 80 mg in the morning and 40 mg in the afternoon. Teaching was done with the patient regarding being aware of other new medications that could alter the efficacy of sotalol. If she does not maintain sinus rhythm with the sotalol, we will suggest referring her to electrophysiology. She is tolerating anticoagulation with Xarelto. Bleeding precautions were reviewed with her. During hospitalization, Dr. Cohen recommended she have outpatient ischemic evaluation. I will arrange for her to have a Lexiscan nuclear stress test. I do not think we could achieve maximum predicted heart rate with an exercise stress test due to her sotalol therapy. Lipids are elevated. She has discussed this with her PCP and was attempting lifestyle modification.Teaching was done with the patient regarding her goals for her lipids. I advised her to discuss this at her next visit with her PCP, and I suspect she will not achieve adequate results with lifestylemodification and will require medical therapy. She verbalized understanding. Return to the office to see Dr. Rascon in 3-4 months. Call us sooner with questions or concerns. Bere Cool, ANP-BC Nurse Practitioner with [facility] [place] [facility] This note is dictated and transcribed using [employer] Fluency Direct Software. Enamel Shader variancesmay occur. Despite proofreading, typographical errors may occur. Cosigned by Thien Rascon MD at 02/05/2020 8:11 AM CDT documented in this encounter Miscellaneous Notes * Addendum Note - Bere Cool NP - 02/04/2020 2:00 PM CDTAddended by: BERE COOL on: 02/04/2020 06:09 PM Modules accepted: Orders * Addendum Note - Rebecca Arias MA - 02/04/2020 2:00 PM CDTAddended by: REBECCA ARIAS on: 02/09/2020 06:12 PM Modules accepted: Orders documented in this encounter Plan of Treatment Not on file documented as of this encounter Procedures Procedure Name Priority Date/Time Associated Diagnosis Comments NM MPI SPECT (REST AND/OR STRESS) MULTIPLE STUDIES Schedule Routine, Read Routine (OP Routine) 02/11/2020 1:00 PM CDT Paroxysmal atrial fibrillation (CMS/HCC) POCT LIPID PANEL Routine 02/04/2020 6:11 PM CDT Dyslipidemia ECG 12-LEAD Routine 02/04/2020 Paroxysmal atrial fibrillation (CMS/HCC) documented in this encounter Results * NM MPI SPECT (Rest and/or Stress) Multiple Studies (02/11/2020 1:00 PM CDT) Anatomical Region Laterality Modality Body N/A Nuclear Medicine 02/11/2020 12:5 2 PM CDT Narrative 02/12/2020 8:10 AM CDT [facility] Cardiology [address], [place] [address] [address] [facility] [address], [place] [address] P:[phone] P:[phone] MPI Imaging Report Patient Name: LIZ TAI : 1950 Study Date: 02/11/2020 12:52:29 PM Gender: F Tech: [facility] Location: [place] Ref.Provider: Aj ORELLANA Height(Cm): 174 BSA: Weight(Kg): 108 BMI: 35.67Order Provider: BERE COOL Physician: Referring Physician: Dr. Orellana. HCG Physician: Isaac Rascon M.D. Interpreting Physician: Bryan Gayle M.D. Stress Supervision: Bryan Gayle M.D. Procedures: Myocardial perfusion imaging with Tc99M Sestamibi SPECT at rest and stress post regadenoson (Lexiscan) infusion. Indications: Atrial Fibrillation, Hypertension, Fatigue, Family Hx CAD, and High Cholesterol. Findings: Procedural Findings: One day rest/stress was used. Tc99m Sestamibi injected IV at rest was 13.0 millicuries. 37.2 millicuries of Tc99M Sestamibi injected IV during Lexiscan stress. Lexiscan 0.4mg administered IV over 10 seconds. Patient had no symptoms during stress test. Baseline heart rate was 51 BPM. Maximum Heart Rate Achieved was: 88 BPM. Baseline blood pressure was 124/74 mmHg. Post Stress Blood Pressure was 132/72 mmHg. Termination: Protocol complete. Resting ECG: Sinus bradycardia RSR' V1/V2. Post ECG: No diagnostic ST changes. Arrhythmia: No arrhythmias seen. Perfusion Findings: Abnormal perfusion imaging - see below. Technical quality of study is excellent. Prone imaging was not performed. Left ventricle cavity size at rest is normal. Left ventricle cavity size with stress is unchanged. A TID of 0.71 was automatically calculated. defect 1: Size is small. Severity is mild. Location of defect is in the apical anterior segment. Reversibility is not present, defect is fixed. Type of defect is most likely attenuation artifact. Artifact noted from breast attenuation. Resolved with prone imaging. defect 2: Size is small. Severity is mild. Location of defect is in the apical anterior segment. Reversibility is not present, defect is fixed. Type of defect is most likely attenuation artifact. Improved but did not completely resolve with prone imaging. Given lack of associated wall motion abnormalities most likely attenuation artifact, however, cannot entirely exclude prior nontransmural infarction. LV Function: Global left ventricular function is normal. Left ventricular ejection fraction is 72 %. Conclusions: No diagnostic ST changes. Global left ventricular [...] ischemia is present. Recommend follow up with legal recruiter. Electronically Signed By: Bryan Gayle MD 2020-02-12 08:10:25 CDT Electronically Signed By: Bryan Gayle MD 2020-02-12 08:10:25 CDT Procedure Note Ton Gayle MD - 02/12/2020 [facility] Cardiology [address] [facility] [address], [place] [address] [address] [facility] [address], [place] [address] P:[phone] P:[phone] MPI Imaging Report Patient Name: LIZ TAIPatient ID: [id number] : [id number] Date: 02/11/2020 12:52:29 PM Gender: FAccession #: [id number] Tech: LE, CNCTLocation: [place] Ref.Provider: Carolann ORELLANA(Cm): 174 BSA: Weight(Kg): 108 BMI: 35.67Order Provider: BERE COOL Physician: Referring Physician: Dr. Orellana. HCG Physician: Isaac Rascon M.D. Interpreting Physician: Bryan Gayle M.D. Stress Supervision: Bryan Gayle M.D. Procedures: Myocardial perfusion imaging with Tc99M Sestamibi SPECT at rest and stresspost regadenoson (Lexiscan) infusion. Indications: Atrial Fibrillation, Hypertension, Fatigue, Family Hx CAD, and HighCholesterol. Findings: Procedural Findings: One day rest/stress was used. Tc99m Sestamibi injected IV at rest was 13.0millicuries. 37.2 millicuries of Tc99M Sestamibi injected IV during Lexiscan stress.Lexiscan 0.4mg administered IV over 10 seconds. Patient had no symptoms during stresstest. Baseline heart rate was 51 BPM. Maximum Heart Rate Achieved was: 88 BPM. Baselineblood pressure was 124/74 mmHg. Post Stress Blood Pressure was 132/72 mmHg. Termination: Protocol complete. Resting ECG: Sinus bradycardia RSR' V1/V2. Post ECG: No diagnostic ST changes. Arrhythmia: No arrhythmias seen. Perfusion Findings: Abnormal perfusion imaging - see below. Technical quality of study isexcellent. Prone imaging was not performed. Left ventricle cavity size at rest is normal.Left ventricle cavity size with stress is unchanged. A TID of 0.71 was automaticallycalculated. defect 1: Size is small. Severity is mild. Location of defect is in the apicalanterior segment. Reversibility is not present, defect is fixed. Type of defect is mostlikely attenuation artifact. Artifact noted from breast attenuation. Resolved with proneimaging. defect 2: Size is small. Severity is mild. Location of defect is in the apicalanterior segment. Reversibility is not present, defect is fixed. Type of defect is mostlikely attenuation artifact. Improved but did not completely resolve with prone imaging.Given lack of associated wall motion abnormalities most likely attenuation artifact,however, cannot entirely exclude prior nontransmural infarction. LV Function: Global left ventricular function is normal. Left ventricular ejectionfraction is 72 %. Conclusions: No diagnostic ST changes. Global left ventricular function is normal. Left ventricular ejectionfraction is 72 %. Myocardial perfusion imaging is probably normal. Mid and basal anteriordefects resolved with prone imaging and apical anterior improved but did not resolvecompletely. As such, while likely artifact, I cannot entirely exclude nontransmural infarction.Clinical correlation advised. No clear myocardial ischemia is present. Recommend follow up with legal recruiter. Electronically Signed By: Bryan Gayle MD 2020-02-12 08:10:25 CDT Electronically Signed By: Bryan Gayle MD 2020-02-12 08:10:25 CDT Bere Cool MANUAL TRAINING TEACHER IMG NM PROCEDURES Final R esult * POCT lipid panel (02/04/2020 6:11 PM CDT) Cholesterol, POC 244 mg/dL HDL, POC 49 mg/dL Triglycerides, POC 212 mg/dL LDL Cholesterol POC 152 mg/dL Chol/HDL Ratio, POC 4.9 Non-HDL Cholesterol, POC 195 mg/dL Cholesterol Total, POC 244 mg/dL Capillary blood 02/04/2020 6 :11 PM CDT Bere Cool NP POINT OF CARE TEST ORDERA BLES Final Result * ECG 12 lead (02/04/2020) Bere Cool NP ECG ORDERABLES Final Res ult documented in this encounter Visit Diagnoses Diagnosis Paroxysmal atrial fibrillation (CMS/HCC) (HCC)- Primary Atrial fibrillation Encounter for monitoring sotalol therapy Chronic anticoagulation Encounter for long-term (current) use of anticoagulants Hospital discharge follow-up Other follow-up examination Dyslipidemia Other and unspecified hyperlipidemia documented in this encounter Care Teams Hatchery Manager Relationship Specialty Start Date End Date Aj Orellana MD [address] [place] [address] PCP - General Family Medicine 08/28/19 04/16/22 documented as of this encounter
--- OUTSIDE RECORDS SUMMARY | 2024-07-13 12:42 | XMS_ITS | Encounter Summary ---
Author Organization [facility] Address [address] [facility] [address] [place] [address] Care Team Providers Care Beauty Shop Manager Name Role Phone Aj Orellana MD Primary Care Provider [phone] Encounter Details Date Type Department Care Team ([facility] st Contact Info) Description 02/23/2020 Telephone [facility] Cardiology [address] [facility] [address] [place] [phone] Horace Ceballos RN Social History Tobacco Use Types Packs/Day Years Used Date Smoking Tobacco: Never Smokeless Tobacco: Never Alcohol Use Standard Drinks/Week Comments Not Currently 0 (1 standard drink = 0.6 oz pur e alcohol) Comments Unknown Sex and Gender Information Value Date Recorded Sex Assigned at Not on file Legal Sex Female 10:24 PM COURTESY CAR DRIVER Gender Identity Female 07/13/2021 9:40 PM COURTESY CAR DRIVER Sexual Orientation Straight 07/13/2021 9: 40 PM COURTESY CAR DRIVER documented as of this encounter Miscellaneous Notes * Telephone Encounter - Horace Ceballos RN - 02/23/2020 11:16 AM CDT Pt is allen documented in this encounter Plan of Treatment Not on file documented as of this encounter Visit Diagnoses Not on filedocumented in this encounter Care Teams Beauty Shop Manager Relationship Specialty Start Date End Date Aj Orellana MD [address] [place] [address] PCP - General Family Medicine 08/28/19 04/16/22 documented as of this encounter
--- OUTSIDE RECORDS SUMMARY | 2024-07-13 12:42 | XMS_ITS | Encounter Summary ---
Author Organization [facility] Address [address] [place] [address] Care Team Providers Care Watch Dial Stoner Name Role Phone Aj Orellana MD Primary Care Provider [phone] Reason for Visit * Reason Comments Atrial Fibrillation 4 mo f/u Encounter Details Date Type Department Care Team ([facility] Contact Info) Description 09/23/2020 1:30 PM CDT Office Visit [facility] Cardiology [address] [place] [address] Thien Rascon MD [address] [id number] Paroxysmal atrial fibrillation (CMS/HCC) (Primary Dx); ROXANNA (obstructive sleep apnea); Chronic anticoagulation; Diastolic dysfunction Social History Tobacco Use Types Packs/Day Years Used Date Smoking Tobacco: Never Smokeless Tobacco: Never Alcohol Use Standard Drinks/Week Comments Not Currently 0 (1 standard drink = 0.6 oz pur e alcohol) Comments Unknown Sex and Gender Information Value Date Recorded Sex Assigned at Not on file Legal Sex Female 10:24 PM BOBBIN PAINTER Gender Identity Female 07/13/2021 9:40 PM BOBBIN PAINTER Sexual Orientation Straight 07/13/2021 9: 40 PM BOBBIN PAINTER documented as of this encounter Last Filed Vital Signs Vital Sign Reading Time Taken Comments Blood Pressure 120/68 09/23/2020 2:05 PM CDT Pulse 51 09/23/2020 1:37 PM CDT Temperature - - Respiratory Rate - - Oxygen Saturation 97% 09/23/2020 1:37 PM CDT Inhaled Oxygen Concentration - - Weight 108 kg (238 lb) 09/23/2020 1:37 PM CDT Height 174 cm (5' 8.5 ) 09/23/2020 1:37 PM CDT Body Mass Index 35.66 09/23/2020 1:37 PM CDT documented in this encounter Progress Notes * Thien Rascon MD - 09/23/2020 1:30 PM CDT [facility] Cardiology [address] [place] [address] Date of Visit: 09/26/2019 Patient ID: Liz [...] inAFib with RVR and was sent to [facility] on 08/28/2019. She denied feeling any palpitations [...] an outpatient. 09/26/2019 hospital follow-up televisit with HUMAN RESOURCES ADMIN: The patient reports overall feeling well since [...] paroxysmal nocturnal dyspnea orthopnea. Hospital follow-up with HUMAN RESOURCES ADMIN 02/04/2020: At the last visit, she was [...] dose of sotalol was reduced to 40 mgdaily. She feels more comfortable with this dosing [...] paroxysmal nocturnal dyspnea, orthopnea, syncope, presyncope, edema. Records that I personally reviewed on the day of this visit include: (the interpretation is outlined in the HPI above) August 2019 [facility] inpatient records including the consultation note from Dr. Rascon, echocardiogram report, cardiology progress notes and discharge summary I have also reviewed: allergies, current medications, past family history, past medical history, past social history, past surgical history and problem list Review of Systems Constitution: Negative for weight gain and weight loss. HENT: Negative for hearing loss. Eyes: Negative for blurred vision and visual disturbance. Cardiovascular: Positive for chest pain. Negative for claudication, dyspnea on exertion, irregular heartbeat, leg swelling, near-syncope, orthopnea, palpitations, paroxysmal nocturnal dyspnea and syncope. Respiratory: Negative for cough, hemoptysis, shortness of breath, snoring, sputum production and wheezing. Endocrine: Negative for cold intolerance, heat intolerance and polyuria. Hematologic/Lymphatic: Negative for bleeding problem. Does not bruise/bleed easily. Skin: Negative for color change and rash. Musculoskeletal: Positive for arthritis. Negative for falls, joint pain, joint swelling and myalgias. Gastrointestinal: Negative for abdominal pain, heartburn, nausea and vomiting. Genitourinary: Negative for dysuria. Neurological: Negative for dizziness, focal weakness, headaches, light- headedness, numbness and weakness. Psychiatric/Behavioral: Negative for depression. The patient is not nervous/anxious. Allergic/Immunologic: Negative for environmental allergies. Vital Signs: BP 120/68 Pulse 51 Ht 174 cm (5' 8.5 ) Wt 108 kg (238 lb) SpO2 97% BMI 35.66 kg/m?? Physical Exam Constitutional: She is oriented to person, place, and time. She appears well-nourished. HENT: Head: Normocephalic and atraumatic. Nose: Nose normal. Eyes: Conjunctivae and EOM are normal. No scleral icterus. Cardiovascular: Normal rate, regular rhythm, normal heart sounds and intact distal pulses. Exam reveals no gallop and no friction rub. No murmur heard. Pulmonary/Chest: Effort normal and breath sounds normal. No respiratory distress. She has no wheezes. She has no rales. She exhibits no tenderness. Abdominal: Soft. Bowel sounds are normal. She exhibits no distension. There is no abdominal tenderness. Musculoskeletal: General: No edema. Normal range of motion. Cervical back: Neck supple. Neurological: She is alert and oriented to person, place, and time. Skin: Skin is warm and dry. Psychiatric: She has a normal mood and affect. No Known Allergies Current Outpatient Medications: ??? levothyroxine (SYNTHROID) 88 mcg tablet, Take [address] cleaner before breakfast, Disp: , Rfl: ??? sotaloL (BETAPACE) 80 mg tablet, Take one tab (80 mg) in the morning and one-half tab (40 mg) in the evening., Disp: 135 tablet, Rfl: 1 ??? Xarelto 20 mg tablet, Take 1 tablet (20 mg total) by mouth daily, Disp: 90 tablet, Rfl: 3 EKG 12/25/2019: [...] ischemia is present. Recommend follow up with cargo service supervisor. Assessment: Diagnoses and all orders for this visit: Paroxysmal atrial fibrillation (CMS/HCC) (Primary) In normal sinus rhythm and on anticoagulation Chronic anticoagulation On anticoagulation without bleeding problems ROXANNA (obstructive sleep apnea) Compliant Diastolic dysfunction Stable Plan/Recommendations: Her palpitations symptoms are better. She does have some chest tightness though. Stress test as detailed above from last fall/summer is ???probably normal ???. Offered her coronary angiogram to define her anatomy she wishes to defer at this point. Her symptoms are quite atypical and not exertional period for symptoms become more typical, she will contact our office and pursue an angiogram. In the meantime she is going to talk to Dr. Orellana about her CPAP. She has had her CPAP for 11 years without adjustments. She likely needs Follow-up in 3 months or sooner as clinically indicated Thien Rascon MD, [facility] [place] [facility] This note is dictated and transcribed using Arch[employer] Direct Software. Maintenance And Custodian Supervisor variancesmay occur. Despite proofreading, typographical errors may occur. documented in this encounter Plan of Treatment Not on file documented as of this encounter Visit Diagnoses Diagnosis Paroxysmal atrial fibrillation (CMS/HCC) (HCC)- Primary Atrial fibrillation ROXANNA (obstructive sleep apnea) Obstructive sleep apnea (adult) (pediatric) Chronic anticoagulation Encounter for long-term (current) use of anticoagulants Diastolic dysfunction Unspecified heart disease documented in this encounter Care Teams Watch Dial Stoner Relationship Specialty Start Date End Date Aj Orellana MD [address] [place] [address] PCP - General Family Medicine 08/28/19 04/16/22 documented as of this encounter
--- OUTSIDE RECORDS SUMMARY | 2024-07-13 12:42 | XMS_ITS | Encounter Summary ---
Author Organization [facility] Address [address] [place] [address] Care Team Providers Care Container Packer Operator Name Role Phone Gardenia Siu MD Primary Care Provider Encounter Details Date Type Department Care Team ([facility] Contact Info) Description 05/17/2022 Orders Only [facility] Cardiology [address] [place] [address] Justin Cochran MD [address] [place] [id number] Social History Tobacco Use Types Packs/Day Years Used Date Smoking Tobacco: Never Smokeless Tobacco: Never Alcohol Use Standard Drinks/Week Comments Not Currently 0 (1 standard drink = 0.6 oz pur e alcohol) Comments Unknown Sex and Gender Information Value Date Recorded Sex Assigned at Not on file Legal Sex Female 10:24 PM CUTTER AND EDGE TRIMMER Gender Identity Female 07/13/2021 9:40 PM CUTTER AND EDGE TRIMMER Sexual Orientation Straight 07/13/2021 9: 40 PM CUTTER AND EDGE TRIMMER documented as of this encounter Plan of Treatment Not on file documented as of this encounter Procedures Procedure Name Priority Date/Time Associated Diagnosis Comments CARDIOLOGY DOCUMENT SCAN Routine 05/17/2022 documented in this encounter Results * Cardiology Document Scan (05/17/2022) Anatomical Region Laterality Modality Other Justin Cochran MD CV CARDIAC SERVICES PRO CEDURES Final Result documented in this encounter Visit Diagnoses Not on filedocumented in this encounter Care Teams Container Packer Operator Relationship Specialty Start Date End Date Gardenia Siu MD PCP - General Family Practice 04/17/22 documented as of this encounter
--- OUTSIDE RECORDS SUMMARY | 2024-07-13 12:42 | XMS_ITS | Encounter Summary ---
Author Organization [facility] Address [address] [place] [id number] Care Team Providers Care Thread Inspector Name Role Phone Gardenia Siu MD Primary Care Provider Reason for Referral * Cardiology (Routine) - Closed Specialty Diagnoses / Procedures Referred By Contac t Referred To Contact Diagnoses Encounter for monitoring sotalol therapy Procedures ECG 12 lead Bere Lanza NP [address] [place] [address] Phone: tel: fax: [facility] Referral ID Status Reason Start Date Expiration Date Visits Re quested Visits Authorized [id number] Closed 04/17/2022 05/17/2023 1 1 * Cardiology (Routine) - Closed Specialty Diagnoses / Procedures Referred By Contac t Referred To Contact Diagnoses Encounter for monitoring sotalol therapy Procedures ECG 12 lead Bere Lanza NP [address] [place] [id number] Phone: tel: fax: [facility] Referral ID Status Reason Start Date Expiration Date Visits Re quested Visits Authorized [id number] Closed 04/17/2022 05/17/2023 1 1 Reason for Visit * Reason Comments Follow-up 9 mons Encounter Details Date Type Department Care Team ([facility] st Contact Info) Description 04/17/2022 8:30 AM CDT Office Visit [facility] Cardiology [address] [place] [id number] Bere Lanza NP [address] [place] [address] Paroxysmal atrial fibrillation (CMS/HCC) (HCC) (Primary Dx); Encounter for monitoring sotalol therapy; Chronic anticoagulation; ROXANNA (obstructive sleep apnea); Recurrent chest pain; Dyslipidemia; Cough productive of clear sputum Social History Tobacco Use Types Packs/Day Years Used Date Smoking Tobacco: Never Smokeless Tobacco: Never Tobacco Cessation:Counseling Given: Not Answered Alcohol Use Standard Drinks/Week Comments Not Currently 0 (1 standard drink = 0.6 oz pur e alcohol) Comments Unknown Sex and Gender Information Value Date Recorded Sex Assigned at Not on file Legal Sex Female 10:24 PM VENEER JOINTER OFFBEARER Gender Identity Female 07/13/2021 9:40 PM VENEER JOINTER OFFBEARER Sexual Orientation Straight 07/13/2021 9: 40 PM VENEER JOINTER OFFBEARER documented as of this encounter Last Filed Vital Signs Vital Sign Reading Time Taken Comments Blood Pressure 132/84 04/17/2022 8:29 AM CDT Pulse 70 04/17/2022 8:29 AM CDT Temperature - - Respiratory Rate - - Oxygen Saturation 98% 04/17/2022 8:29 AM CDT Inhaled Oxygen Concentration - - Weight 105.7 kg (233 lb) 04/17/2022 8:29 AM CDT Height 174 cm (5' 8.5 ) 04/17/2022 8:29 AM CDT Body Mass Index 34.91 04/17/2022 8:29 AM CDT documented in this encounter Ordered Prescriptions Prescription Sig Dispense Quantity Refills Last Filled Start Date End Date sotaloL (BETAPACE) 80 mg tabletIndications: Paroxysmal atrial fibrillation (CMS/HCC) (HCC) Take 1 tablet (80 mg total) by mouth 2 (two) times a day 135 tablet 04/17/2022 05/19/2022 documented in this encounter Progress Notes * Bere Lanza NP - 04/17/2022 8:30 AM CDT Images from the original note were not included. [facility] Cardiology [address] [place], [place] [address] Date of Visit: 04/17/2022 Patient ID: Liz Overton 1950 Chief Complaint Patient presents with Follow-up 9 mons Liz Overton is a 71 y.o. female who is an established patient of Dr. Rascon with Afib returningto the office for routine follow-up. History of Present Illness: Liz Overton is a 71 y.o. femalewith a past medical history of hypertension, hyperlipidemia, sleep apnea, hypothyroidism and arthritis. She was experiencing intermittent weakness, dizziness and fatigue for a year more. More recently, her symptoms began happening daily and were accompanied by chest pressure/heaviness. Upon evaluation in her primary care provider's office she was found to be in A Fib with RVR and was sent to [facility] on 08/28/2019. She denied feeling any palpitations at any point in time. She endorsed a history of a negative stress test that was performed on 02/25/2019. Dr. aRscon met her in consultation. Her echocardiogram showed normal LV systolic function with EF 55- 60%, grade 1 diastolic dysfunction, mild LAE and no significant valvular disease. She was placed on a diltiazem drip and spontaneously converted to sinus rhythm. She was started on Xarelto for systemic oral anticoagulation. Because it was suspected that her AFib could of been present for a longperiod of time, anti rhythmic therapy was advised and she was started on sotalol at a dose of 40 mg b.i.d. due to slow heart rate. The sotalol was started on 08/29/2019. By 08/31/2019 her QT intervalwas appropriate. She was advised to reassess her sleep apnea as an outpatient. 09/26/2019 hospital follow-up televisit with CUSTOMS INSPECTOR: The patient reports overall feeling well since [...] paroxysmal nocturnal dyspnea orthopnea. Hospital follow-up with CUSTOMS INSPECTOR 02/04/2020: At the last visit, she was [...] dyspnea, bleeding problems, edema Follow-up visit with CUSTOMS INSPECTOR 04/17/2022: She missed her follow-up appointment in December because she had COVID. Ever since then she has felt tired and somewhat weak. From August to mid November she had no episodes of AFib but in December she had 2, March she has 3, and she had 1 last week. [employer] shows a heart rate of 150s to [...] abnormality now seen in V3 and V4. Records that I personally reviewed on the day of this visit include: (the interpretation is outlined in the HPI above) 07/14/[address] Rascon and ECG, today's ECG I have also reviewed: allergies, current medications, past family history, past medical history, past social history, past surgical history and problem list Medical History: Past Medical History: Diagnosis Date Arthritis Atrial fibrillation (CMS/HCC) (HCC) Sleep apnea Thyroid disease Past Surgical History: Procedure Laterality Date CHOLECYSTECTOMY may 1984 GALLBLADDER SURGERY 1985 HERNIA REPAIR 05/2003 JOINT REPLACEMENT REPLACEMENT TOTAL KNEE 07/2003 TUBAL LIGATION 1982 Social History Tobacco Use Smoking Status Never Smokeless Tobacco Never Social History Tobacco Use Smoking status: Never Smokeless tobacco: Never Substance and Sexual Activity Drug use: Never Sexual activity: Not Currently Partners: Male control/protection: Post-menopausal, Tubal Ligation Alcohol Use: Not on file Family History Problem Relation Age of Onset Hypertension Father Family history of hypertension - (Added by TW Conv) Cancer Mother Family history of malignant neoplasm - (Added by TW Conv) Blood Clot Mother Family history of blood clots - (Added by TW Conv) Diabetes Sister Family history of diabetes mellitus - (Added by TW Conv) Review of Systems Constitutional: Positive for malaise/fatigue. Negative for diaphoresis, fever, weight gain and weight loss. HENT: Negative [...] Negative for dizziness, headaches and light-headedness. Psychiatric/Behavioral: Positive for depression. The patient is not nervous/anxious. Vital Signs: BP 132/84 (BP Location: Left arm, Patient Position: Sitting) Pulse 70 Ht 174 cm (5' 8.5 ) Wt 105.7 kg (233 lb) SpO2 98% BMI 34.91 kg/m?? Physical Exam Constitutional: General: She is not in acute distress. Appearance: She is well-developed. She is obese. HENT: Head: Normocephalic and atraumatic. Nose: Comments: Wearing a mask Eyes: General: No scleral icterus. Conjunctiva/sclera: Conjunctivae normal. Neck: Vascular: No JVD. Trachea: No tracheal deviation. Cardiovascular: Rate and Rhythm: Normal rate and regular rhythm. Heart sounds: Normal heart sounds. No murmur heard. Pulmonary: Effort: Pulmonary effort is normal. No respiratory distress. Breath sounds: Normal breath sounds. Skin: General: Skin is warm and dry. Neurological: Mental Status: She is alert and oriented to person, place, and time. Psychiatric: Mood and Affect: Mood normal. Behavior: Behavior normal. No Known Allergies Current Outpatient Medications: acetaminophen ER (TYLENOL) 650 mg 8 hr tablet, Take 650 mg by mouth every 8 (eight) hours as neededfor pain, Disp: , Rfl: atorvastatin (LIPITOR) 20 mg tablet, Take 20 mg by mouth nightly, Disp: , Rfl: cyanocobalamin (vitamin B-12) 1,000 mcg tablet, Take 1,000 mcg by mouth daily, Disp: , Rfl: levothyroxine (SYNTHROID) 88 mcg tablet, Take 88 mcg by mouth dry end operator before breakfast, Disp:, Rfl: sotaloL (BETAPACE) 80 mg tablet, TAKE 1 TABLET BY MOUTH EVERY MORNING, AND THEN TAKE ONE-HALF TABLET EVERY EVENING., Disp: 135 tablet, Rfl: 0 Xarelto 20 mg tablet, TAKE 1 TABLET(20 MG) BY MOUTH DAILY, Disp: 90 tablet, Rfl: 0 No results found for: POTASSIUM, BUNSER, CREATININE, CHOL, TRIG, LDL, LDLCALC, HDL Lab Results Component Value Date HGB 13.5 07/29/2014 HCT 41.5 07/29/2014 MCV 88.7 07/29/2014 No results found for this or any previous visit (from the past 4 hour(s)). Assessment: Diagnoses and all orders for this visit: Paroxysmal atrial fibrillation (CMS/HCC) (HCC) (Primary) Encounter for monitoring sotalol therapy - ECG 12 lead; Future Chronic anticoagulation ROXANNA (obstructive sleep apnea) Recurrent chest pain Dyslipidemia Cough productive of clear sputum Plan/Recommendations: Over the last few months she is having more frequent episodes atrial fibrillation, generally feeling more fatigued and unwell since she had COVID 3 months ago. She is grieving the loss of her husbandalso. Currently she is taking sotalol 80 mg in the morning and 40 mg in the evening. I advised her to increase the sotalol to 80 mg b.i.d.. We will check another ECG in 2-3 weeks. Continue Xarelto for systemic oral anticoagulation to reduce the risk of stroke. I reinforced the importance of compliance with CPAP to help control her AFib. She reports compliance. She is still having intermittent chest tightness. Her ECG shows some T-wave changes in the anteriorleads. She agrees to come back to the office for stress testing. We will adjust her treatment plan if indicated based on this result. Dyslipidemia is followed by her PCP. Continue atorvastatin. She is having cough and sinus drainage sounds consistent with a viral upper respiratory infection. I advised her it was okay to take Claritin, Mucinex, saline nasal spray. Follow-up with PCP if symptoms are not improving after 7-10 days. Return to the office for routine follow-up with Dr. Rascon in 6 months. I offered that she could come back to the office in see me sooner than this if she continues to feel unwell and her AFib does not improve. 04/17/2022 KISHORE Tovar- Nurse Practitioner with [facility] Cardiology This note is dictated and transcribed using [employer] Direct Software. Chart Writer variancesmay occur. Despite proofreading, typographical errors may occur. Cosigned by Thien Rascon MD at 04/17/2022 10:05 AM CDT documented in this encounter Plan of Treatment Not on file documented as of this encounter Results * ECG 12 lead (05/08/2022) us Bere Dottie Myla CUSTOMS INSPECTOR ECG ORDERABLES Final Res ult * ECG 12 lead (04/17/2022) Bere Lanza CUSTOMS INSPECTOR ECG ORDERABLES Final Res ult documented in this encounter Visit Diagnoses Diagnosis Paroxysmal atrial fibrillation (CMS/HCC) (HCC)- Primary Atrial fibrillation Encounter for monitoring sotalol therapy Chronic anticoagulation Encounter for long-term (current) use of anticoagulants ROXANNA (obstructive sleep apnea) Obstructive sleep apnea (adult) (pediatric) Recurrent chest pain Unspecified chest pain Dyslipidemia Other and unspecified hyperlipidemia Cough productive of clear sputum documented in this encounter Discontinued Medications Medication Sig Discontinue Reason Start Date End Da te sotaloL (BETAPACE) 80 mg tabletIndications:Paroxys mal atrial fibrillation (CMS/HCC) (HCC) TAKE 1 TABLET BY MOUTH EVERY MORNING, AND THEN TAKE ONE-HALF TABLET EVERY EVENING. 03/03/2022 04/17/2022 documented as of this encounter Historical Medications * This list may reflect changes made after this encounter. cyanocobalamin (vitamin B-12) 1,000 mcg tabletIndications :Prevention of Vitamin B12 Deficiency Take 1 tablet (1,000 mcg total) by mouth daily added in this encounter Care Teams Thread Inspector Relationship Specialty Start Date End Date Gardenia Siu MD PCP - General Family Practice 04/17/22 documented as of this encounter
--- OUTSIDE RECORDS SUMMARY | 2024-07-13 12:42 | XMS_ITS | Encounter Summary ---
Author Organization [facility] Address [address] [place] [address] Care Team Providers Care City Constable Name Role Phone Aj Orellana MD Primary Care Provider Reason for Visit * Reason Comments Atrial Fibrillation 3-4 mo f/u Encounter Details Date Type Department Care Team (Latest Contact Info) Description 05/20/2020 1:15 PM ECHOCARDIOGRAPHY RADIOLOGY TECHNOLOGIST Office Visit [facility] Cardiology [address] [place] [address] Thien Rascon MD [address] [id number] Paroxysmal atrial fibrillation (CMS/HCC) (Primary Dx); ROXANNA (obstructive sleep apnea); Diastolic dysfunction; Chronic anticoagulation Social History Tobacco Use Types Packs/Day Years Used Date Smoking Tobacco: Never Smokeless Tobacco: Never Alcohol Use Standard Drinks/Week Comments Not Currently 0 (1 standard drink = 0.6 oz pur e alcohol) Comments Unknown Sex and Gender Information Value Date Recorded Sex Assigned at Not on file Legal Sex Female 10:24 PM ECHOCARDIOGRAPHY RADIOLOGY TECHNOLOGIST Gender Identity Female 07/13/2021 9:40 PM ECHOCARDIOGRAPHY RADIOLOGY TECHNOLOGIST Sexual Orientation Straight 07/13/2021 9: 40 PM ECHOCARDIOGRAPHY RADIOLOGY TECHNOLOGIST documented as of this encounter Last Filed Vital Signs Vital Sign Reading Time Taken Comments Blood Pressure 130/84 05/20/2020 1:22 PM ECHOCARDIOGRAPHY RADIOLOGY TECHNOLOGIST Pulse 54 05/20/2020 1:22 PM ECHOCARDIOGRAPHY RADIOLOGY TECHNOLOGIST Temperature - - Respiratory Rate - - Oxygen Saturation 96% 05/20/2020 1:22 PM ECHOCARDIOGRAPHY RADIOLOGY TECHNOLOGIST Inhaled Oxygen Concentration - - Weight 108.9 kg (240 lb) 05/20/2020 1:22 PM ECHOCARDIOGRAPHY RADIOLOGY TECHNOLOGIST Height 174 cm (5' 8.5 ) 05/20/2020 1:22 PM ECHOCARDIOGRAPHY RADIOLOGY TECHNOLOGIST Body Mass Index 35.96 05/20/2020 1:22 PM ECHOCARDIOGRAPHY RADIOLOGY TECHNOLOGIST documented in this encounter Progress Notes * Thien Rascon MD - 05/20/2020 1:15 PM CST [facility] Cardiology [address] [place] [address] Date of Visit: 09/26/2019 Patient ID: Liz Overton 1950 Chief Complaint: Liz Overton is a 69 y.o. female who is having follow-up after hospitalization for atrial fibrillation with RVR. History of Present Illness: Liz Overton is a 69 y.o. female with a past medical history of hypertension, hyperlipidemia, sleep apnea, hypothyroidism and arthritis. She was experiencing intermittent weakness, dizziness and fatigue for a year more. More recently, her symptoms began happening daily and were accompanied by chest pressure/heaviness. Upon evaluation in her primary care provider's office she was found to be inAFib with RVR and was sent to [facility] on 08/28/2019. She denied feeling any palpitations [...] an outpatient. 09/26/2019 hospital follow-up televisit with CREW MEMBER: The patient reports overall feeling well since [...] paroxysmal nocturnal dyspnea orthopnea. Hospital follow-up with CREW MEMBER 02/04/2020: At the last visit, she was [...] feels more comfortable with this dosing regimen. Records that I personally reviewed on the day of this visit include: (the interpretation is outlined in the HPI above) August 2019 [facility] inpatient records including the consultation note from [...] for blurred vision and visual disturbance. Cardiovascular: Negative for chest pain, [...] Negative for environmental allergies. Vital Signs: BP 130/84 (BP Location: Right arm, Patient Position: Sitting) Pulse 54 Ht 174 cm (5' 8.5 ) Wt108.9 kg (240 lb) SpO2 96% BMI 35.96 kg/m?? Physical Exam Constitutional: She is oriented to person, place, and time. She appears well-nourished. HENT: Head: Normocephalic and atraumatic. Nose: Nose normal. Eyes: Conjunctivae and EOM are normal. No scleral icterus. Neck: Neck supple. Cardiovascular: Normal rate, regular rhythm, normal heart sounds and intact distal pulses. Exam reveals no gallop and no friction rub. No murmur heard. Pulmonary/Chest: Effort normal and breath sounds normal. No respiratory distress. She has no wheezes. She has no rales. She exhibits no tenderness. Abdominal: Soft. Bowel sounds are normal. She exhibits no distension. There is no abdominal tenderness. Musculoskeletal: Normal range of motion. General: No edema. Neurological: She is alert and oriented to person, place, and time. Skin: Skin is warm and dry. Psychiatric: She has a normal mood and affect. No Known Allergies Current Outpatient Medications: ??? levothyroxine (SYNTHROID) 88 mcg tablet, Take 88 mcg by mouth staff cytotechnologist before breakfast, Disp: , Rfl: ??? sotaloL (BETAPACE) 80 mg tablet, TAKE 1/2 TABLET(40 MG) BY MOUTH TWICE DAILY (Patient taking differently: Take by mouth Taking one tab in the am and one-half tab in the pm), Disp: 90 tablet, Rfl:3 ??? Xarelto 20 mg tablet, Take 1 [...] ischemia is present. Recommend follow up with cone machine feeder. Assessment: Diagnoses and all orders for this visit: Paroxysmal atrial fibrillation (CMS/HCC) (Primary) In normal sinus rhythm and on anticoagulation Chronic anticoagulation On anticoagulation without bleeding problems ROXANNA (obstructive sleep apnea) Compliant Diastolic dysfunction Stable Plan/Recommendations: Still having paroxysms of atrial fibrillation a couple times per month that will last for several hours. I offered her referral to electrophysiology for consideration of ablation but at this point she wishes to hold off due to the pandemic. She wants to focus on weight loss in the hopes that this will reduce her symptoms. I think this is a reasonable option given the fact she is not very symptomatic when she is in atrial fibrillation and is only having a couple of episodes per month. Continue anticoagulation. Follow-up in 4 months or sooner as clinically indicated Thien Rascon MD, FACC This note is dictated and transcribed using Near Page Direct Software. Helpdesk Technician variancesmay occur. Despite proofreading, typographical errors may occur. CARDIOGRAPHY RADIOLOGY TECHNOLOGIST documented in this encounter Plan of Treatment Not on file documented as of this encounter Visit Diagnoses Diagnosis Paroxysmal atrial fibrillation (CMS/HCC) (HCC)- Primary Atrial fibrillation ROXANNA (obstructive sleep apnea) Obstructive sleep apnea (adult) (pediatric) Diastolic dysfunction Unspecified heart disease Chronic anticoagulation Encounter for long-term (current) use of anticoagulants documented in this encounter Care Teams City Constable Relationship Specialty Start Date End Date Aj Orellana MD [address] [place] [address] PCP - General Family Medicine 08/28/19 04/16/22 documented as of this encounter
--- OUTSIDE RECORDS SUMMARY | 2024-07-13 12:42 | XMS_ITS | Encounter Summary ---
Author Organization [facility] Address [address] [place] [address] Care Team Providers Care Service Now Developer Name Role Phone Gardenia Siu MD Primary Care Provider Encounter Details Date Type Department Care Team ([facility] Contact Info) Description 04/17/2022 Orders Only [facility] Cardiology [address] [place] [address] Bere Lanza NP [address] [place] [address] Encounter for monitoring sotalol therapy Social History Tobacco Use Types Packs/Day Years Used Date Smoking Tobacco: Never Smokeless Tobacco: Never Alcohol Use Standard Drinks/Week Comments Not Currently 0 (1 standard drink = 0.6 oz pur e alcohol) Comments Unknown Sex and Gender Information Value Date Recorded Sex Assigned at Not on file Legal Sex Female 10:24 PM WELDER TECH Gender Identity Female 07/13/2021 9:40 PM WELDER TECH Sexual Orientation Straight 07/13/2021 9: 40 PM WELDER TECH documented as of this encounter Plan of Treatment Not on file documented as of this encounter Procedures Procedure Name Priority Date/Time Associated Diagnosis Comments ECG 12-LEAD Routine 04/17/2022 Encounter for monitoring sotalol therapy documented in this encounter Results * ECG 12 lead (04/17/2022) Bere Lanza NP ECG ORDERABLES Final Res ult documented in this encounter Visit Diagnoses Diagnosis Encounter for monitoring sotalol therapy documented in this encounter Care Teams Service Now Developer Relationship Specialty Start Date End Date Gardenia Siu MD PCP - General Family Practice 04/17/22 documented as of this encounter
--- OUTSIDE RECORDS SUMMARY | 2024-07-13 12:42 | XMS_ITS | Encounter Summary ---
Author Organization [facility] Address [address] [place] [address] Care Team Providers Care Service Loss Control Consultant Name Role Phone Aj Orellana MD Primary Care Provider [phone] Reason for Visit * Reason Comments Hospital Follow Up a-fib with RVR Encounter Details Date Type Department Care Team ([facility] Contact Info) Description 09/26/2019 11:30 AM CDT Telemedicine [facility] Cardiology [address] [place] [address] Bere Lanza NP [address] [place] [address] Paroxysmal atrial fibrillation (CMS/HCC) (Primary Dx); Chronic anticoagulation; Diastolic dysfunction without heart failure; ROXANNA (obstructive sleep apnea); Hospital discharge follow-up Social History Tobacco Use Types Packs/Day Years Used Date Smoking Tobacco: Never Smokeless Tobacco: Never Alcohol Use Standard Drinks/Week Comments Not Currently 0 (1 standard drink = 0.6 oz pur e alcohol) Comments Unknown Sex and Gender Information Value Date Recorded Sex Assigned at Not on file Legal Sex Female 10:24 PM OUTDOOR ADVENTURE INSTRUCTOR Gender Identity Female 07/13/2021 9:40 PM OUTDOOR ADVENTURE INSTRUCTOR Sexual Orientation Straight 07/13/2021 9: 40 PM OUTDOOR ADVENTURE INSTRUCTOR COVID-19 Exposure Response Date Recorded In the last month, have you been in contact with someone who was confirmed or suspected to have Coronavirus / COVID-19? No / Unsure 09/26/2019 11:52 AM CDT documented as of this encounter Last Filed Vital Signs Vital Sign Reading Time Taken Comments Blood Pressure 128/78 09/26/2019 11:37 AM CDT Pulse 61 09/26/2019 11:37 AM CDT Temperature - - Respiratory Rate - - Oxygen Saturation - - Inhaled Oxygen Concentration - - Weight 102.1 kg (225 lb) 09/26/2019 11:37 AM CDT Height 174 cm (5' 8.5 ) 09/26/2019 11:37 AM CDT Body Mass Index 33.71 09/26/2019 11:37 AM CDT documented in this encounter Ordered Prescriptions Prescription Sig Dispense Quantity Refills Last Filled Start Date End Date Xarelto 20 mg tabletIndications:Chr onic anticoagulation Take 1 tablet (20 mg total) by mouth daily 90 tablet 3 09/26/2019 0 sotaloL (BETAPACE) 80 mg tabletIndications:Par oxysmal atrial fibrillation (CMS/HCC) (HCC) Take 0.5 tablets (40 mg total) by mouth 2 (two) times a day 90 tablet 3 09/26/2019 0 Xarelto 20 mg tabletIndications:Chr onic anticoagulation Take 1 tablet (20 mg total) by mouth daily 30 tablet 09/26/2019 0 sotaloL (BETAPACE) 80 mg tabletIndications:Par oxysmal atrial fibrillation (CMS/HCC) (HCC) Take 0.5 tablets (40 mg total) by mouth 2 (two) times a day 30 tablet 09/26/2019 0 documented in this encounter Progress Notes * Bere Lanza NP - 09/26/2019 11:30 AM CDT [facility] Cardiology [address] [place] [address] Date of Visit: 09/26/2019 Patient ID: Liz Overton 1950 This was a telemedicine visit with Liz Overton which took place via Telephone. During the visit, I was located [facility] Cardiology in [place] and the patient was located at his/her home. The session started at 1140 and ended at 1149. The patient has been informed that the visit may not be secure and acknowledged the information. Chief Complaint: Liz Overton is a 69 [...] office she was found to be in AFib with RVR and was sent to [facility] on 08/28/2019. She denied feeling any palpitationsat any point in time. She endorsed a history of a negative stress test that was performed on 02/25/2019. Dr. Rascon met her in consultation. Her echocardiogram showed normal LV systolic function withEF 55-60%, grade 1 diastolic dysfunction, mild LAE [...] an outpatient. 09/26/2019 hospital follow-up televisit with AWNING INSTALLER: The patient reports overall feeling well since [...] of breath. She denies any bleeding problems. Records that I personally reviewed on the day of this visit include: (the interpretation is outlined in the HPI above) August 2019 [facility] inpatient records including the consultation note from Dr. Rascon, echocardiogram report, cardiology progress notes and discharge summary I have also reviewed: allergies, current medications, past family history, past medical history, past social history, past surgical history and problem list Review of Systems Constitution: Negative for weight gain. Cardiovascular: Negative for chest pain, dyspnea on exertion, palpitations and syncope. Hematologic/Lymphatic: Negative for bleeding problem. Musculoskeletal: Positive for arthritis. Vital Signs: BP 128/78 (BP Location: Left arm, Patient Position: Sitting) Pulse 61 Ht 174 cm (5' 8.5 ) Wt 102.1 kg (225 lb) BMI 33.71 kg/m?? Physical Exam The patient sounded in no distress over the phone, asked appropriate questions and answered questions appropriately. No Known Allergies Current Outpatient Medications: ??? levothyroxine (SYNTHROID) 88 mcg tablet, Take 88 mcg by mouth group product manager before breakfast, Disp: , Rfl: ??? sotaloL (BETAPACE) 80 mg tablet, Take 40 mg by mouth 2 (two) times a day, Disp: , Rfl: ??? Xarelto 20 mg tablet, Take 20 mg by mouth daily, Disp: , Rfl: Assessment: Diagnoses and all orders for this visit: Paroxysmal atrial fibrillation (CMS/HCC) (Primary) Chronic anticoagulation Diastolic dysfunction without heart failure ROXANNA (obstructive sleep apnea) Hospital discharge follow-up Plan/Recommendations: She was recently hospitalized when she was found to be in atrial fibrillation with RVR. It was suspected she might have been in atrial fibrillation for several months. She spontaneously converted with a diltiazem drip and was started on sotalol. Her heart rate at home is in an appropriate range. I e ducated her that if she records heart rates of 50 or below at home she needs to notify our office. I also explained that certain antibiotics can interact with the sotalol, so this is something she needs to check with her other prescribing providers and pharmacist, but amoxicillin given prophylactically for dental work would not be a problem. She also uses piroxicam for arthritis pain. I explained the concern for bleeding risk if NSAIDs aretaken with anti coagulants. I advised her to use acetaminophen on a daily basis to control her arthritis pain, and only use the piroxicam sparingly. She also asked about Sudafed that she takes for her allergies and I discouraged this as well because it can be a stimulant and aggravate her AFib. Instead use an antihistamine such as loratadine or cetirizine. Her echocardiogram during hospitalization showed grade 1 diastolic dysfunction she does not show any signs or symptoms of decompensated diastolic heart failure. It sounds like her CPAP mask is not fitting her well. I explained the relationship between poorly controlled sleep apnea and worsening atrial fibrillation. I asked her to contact her PCP about sending an order for a new CPAP titration study. She agreed. Return to the office to see Dr. Rascon in 3 months. Call us sooner with questions or concerns. KISHORE Tovar- Nurse Practitioner with [facility] This note is dictated and transcribed using Appia Direct Software. Heat Reader variancesmay occur. Despite proofreading, typographical errors may occur. documented in this encounter Plan of Treatment Not on file documented as of this encounter Visit Diagnoses Diagnosis Paroxysmal atrial fibrillation (CMS/HCC) (HCC)- Primary Atrial fibrillation Chronic anticoagulation Encounter for long-term (current) use of anticoagulants Diastolic dysfunction without heart failure ROXANNA (obstructive sleep apnea) Obstructive sleep apnea (adult) (pediatric) Hospital discharge follow-up Other follow-up examination documented in this encounter Discontinued Medications Medication Sig Discontinue Reason Start Date End Da te sotaloL (BETAPACE) 80 mg tablet Take 40 mg by mouth 2 (two) times a day Reorder 08/31/2019 09/26/2019 Xarelto 20 mg tablet Take 20 mg by mouth daily Reorder 08/31/2019 09/26/2019 sotaloL (BETAPACE) 80 mg tabletIndications:Paroxysm al atrial fibrillation (CMS/HCC) (HCC) Take 0.5 tablets (40 mg total) by mouth 2 (two) times a day Reorder 09/26/2019 09/26/2019 Xarelto 20 mg tabletIndications:Chronic anticoagulation Take 1 tablet (20 mg total) by mouth daily Reorder 09/26/2019 09/26/2019 documented as of this encounter Historical Medications * This list may reflect changes made after this encounter. levothyroxine (SYNTHROID) 88 mcg tablet Take 1 tablet (88 mcg total) by mouth group product manager before breakfast sotaloL (BETAPACE) 80 mg tablet Take 40 mg by mouth 2 (two) times a day 08/31/2019 0 Xarelto 20 mg tablet Take 20 mg by mouth daily 08/31/2019 0 added in this encounter Care Teams Service Loss Control Consultant Relationship Specialty Start Date End Date Aj Orellana MD [address] [place] [address] PCP - General Family Medicine 08/28/19 04/16/22 documented as of this encounter
--- OUTSIDE RECORDS SUMMARY | 2024-07-13 12:42 | XMS_ITS | Encounter Summary ---
Author Organization [facility] Address [address] [place] [address] Care Team Providers Care Database Programmer Analyst Name Role Phone Gardenia Siu MD Primary Care Provider Reason for Visit * Diagnostic Imaging (Routine) - Closed Specialty Diagnoses / Procedures Referred By Contac t Referred To Contact Diagnoses Paroxysmal atrial fibrillation (CMS/HCC) (HCC) Recurrent chest pain Procedures NM MPI SPECT (Rest and/or Stress) Multiple Studies Pat Mazariegos MD [address] [address] Phone: tel: fax: [facility] Referral ID Status Reason Start Date Expiration Date Visits Re quested Visits Authorized [id number] Closed 04/28/2022 06/12/2022 1 1 Encounter Details Date Type Department Care Team (Latest Contact Info) Description 05/08/2022 9:15 AM SPONGE CLIPPER Ancillary Procedure [facility] Cardiology [address] [address] [address] [place] [address] Paroxysmal atrial fibrillation (CMS/HCC) (HCC); Recurrent chest pain Social History Tobacco Use Types Packs/Day Years Used Date Smoking Tobacco: Never Smokeless Tobacco: Never Alcohol Use Standard Drinks/Week Comments Not Currently 0 (1 standard drink = 0.6 oz pur e alcohol) Comments Unknown Sex and Gender Information Value Date Recorded Sex Assigned at Not on file Legal Sex Female 10:24 PM SPONGE CLIPPER Gender Identity Female 07/13/2021 9:40 PM SPONGE CLIPPER Sexual Orientation Straight 07/13/2021 9: 40 PM SPONGE CLIPPER documented as of this encounter Plan of Treatment Not on file documented as of this encounter Procedures Procedure Name Priority Date/Time Associated Diagnosis Comments NM MPI SPECT (REST AND/OR STRESS) MULTIPLE STUDIES Schedule Routine, Read Routine (OP Routine) 05/08/2022 10:42 AM SPONGE CLIPPER Paroxysmal atrial fibrillation (CMS/HCC) (HCC) Recurrent chest pain documented in this encounter Results * NM MPI SPECT (Rest and/or Stress) Multiple Studies (05/08/2022 10:42 AM SPONGE CLIPPER) Anatomical Region Laterality Modality Body N/A Nuclear Medicine 05/08/2022 9:36 AM SPONGE CLIPPER Narrative 05/08/2022 5:[address] [facility] Cardiology [address], [place] [address] [address], [place] [address] P:[phone] P:[phone] MPI Imaging Report ADDENDUM Patient Name: LIZ TAI : 1950 Study Date: 05/08/2022 9:36:18 AM Gender: F Tech: [facility] Location: [facility] Provider: Anthony MAZARIEGOSight(Cm): 174 BSA: Weight(Kg): 105.7 [...] Signed By: Bryan Gayle MD 2022-05-08 17:03:02 SPONGE CLIPPER Electronically Signed By: Park Ram DO, [facility], [place] 2022-05-09 09:38:25 SPONGE CLIPPER CC: CC: CC: Procedure Note Ton Gayle MD / Park Ram DO - 05/09/2022 [facility] Cardiology [address], [place] [address] [address], [place] [address] P:[phone] P:[phone] MPI Imaging Report ADDENDUM Patient Name: LIZ TAIPatient ID: [id number] : [id number] Date: 05/08/2022 9:36:18 AM Gender: FAccession #: [id number] Tech: DERIAN [facility]ELocation: [place] Ref Provider: PAT MAZARIEGOSKashight(Cm): 174 BSA: Weight(Kg): 105.7 BMI: 34.91Order Provider: [...] Signed By: Bryan Gayle MD 2022-05-08 17:03:02 SPONGE CLIPPER Electronically Signed By: Park Ram DO, [facility], [place], [place] 2022-05-09 09:38:25 SPONGE CLIPPER CC: CC: CC: Pat Mazariegos MD IMG NM PROCEDURES Edited Result - Final documented in this encounter Visit Diagnoses Diagnosis Paroxysmal atrial fibrillation (CMS/HCC) (HCC) Atrial fibrillation Recurrent chest pain Unspecified chest pain documented in this encounter Administered Medications Inactive Administered Medications - up to 3 most recent administrations Medication Order MAR Action Action Date Dose Rate Site regadenoson (LEXISCAN) 0.4 mg/5 mL injection 0.4 mg 0.4 mg, intravenous, Once, On Sun05/08/22 at 1115, For 1 dose, Administer IV push over 10 seconds., Indications: Myocardial Perfusion Imaging AdjunctIndications:Myocard ial Perfusion Imaging Adjunct Given 05/08/2022 10:43 AM SPONGE CLIPPER 0.4 mg tc-99m sestamibi unit dose injection 24.4 millicurie 24.4 millicurie, intravenous, Once in imaging, radiopharmaceutical, Starting on Sun05/08/22 at 1042, For 1 dose, Indications: Diagnostic RadiographyIndications:Caren gnostic Radiography Given 05/08/2022 10:44 AM SPONGE CLIPPER 24.4 millicuries tc-99m sestamibi unit dose injection 8.6 millicurie 8.6 millicurie, intravenous, Once in imaging, radiopharmaceutical, Starting on Sun05/08/22 at 0924, For 1 dose, Indications: Diagnostic RadiographyIndications:Caren gnostic Radiography Given 05/08/2022 9:24 AM SPONGE CLIPPER 8.6 millicuries documented in this encounter Care Teams Database Programmer Analyst Relationship Specialty Start Date End Date Gardenia Sui MD PCP - General Family Practice 04/17/22 documented as of this encounter
--- OUTSIDE RECORDS SUMMARY | 2024-07-13 12:42 | XMS_ITS | Encounter Summary ---
Author Organization [facility] Address [address] [place] [address] Care Team Providers Care Tie Loader Name Role Phone Aj Orellana MD Primary Care Provider [phone] Reason for Visit * Diagnostic Imaging (Routine) - Closed Specialty Diagnoses / Procedures Referred By Contac t Referred To Contact Diagnoses Paroxysmal atrial fibrillation (CMS/HCC) (HCC) Procedures NM MPI SPECT (Rest and/or Stress) Multiple Studies Bere Lanza NP [address] [address] Phone: tel: fax: [facility] Referral ID Status Reason Start Date Expiration Date Visits Re quested Visits Authorized [id number] Closed 02/04/2020 03/05/2021 1 1 Encounter Details Date Type Department Care Team ([facility] Contact Info) Description 02/11/2020 11:15 AM CDT Ancillary Procedure [facility] Medical [facility] Cardiology [address] [address] Social History Tobacco Use Types Packs/Day Years Used Date Smoking Tobacco: Never Smokeless Tobacco: Never Alcohol Use Standard Drinks/Week Comments Not Currently 0 (1 standard drink = 0.6 oz pur e alcohol) Comments Unknown Sex and Gender Information Value Date Recorded Sex Assigned at Not on file Legal Sex Female 10:24 PM CORRECTION OFFICER SUPERVISOR Gender Identity Female 07/13/2021 9:40 PM CORRECTION OFFICER SUPERVISOR Sexual Orientation Straight 07/13/2021 9: 40 PM CORRECTION OFFICER SUPERVISOR documented as of this encounter Plan of Treatment Not on file documented as of this encounter Procedures Procedure Name Priority Date/Time Associated Diagnosis Comments NM MPI SPECT (REST AND/OR STRESS) MULTIPLE STUDIES Schedule Routine, Read Routine (OP Routine) 02/11/2020 1:00 PM CDT Paroxysmal atrial fibrillation (CMS/HCC) documented in this encounter Visit Diagnoses Not on filedocumented in this encounter Administered Medications Inactive Administered Medications - up to 3 most recent administrations Medication Order MAR Action Action Date Dose Rate Site regadenoson (LEXISCAN) 0.4 mg/5 mL injection 0.4 mg 0.4 mg, intravenous, Once, On Sun02/11/20 at 1345, For 1 dose, Administer IV push over 10 seconds., Indications: Myocardial Perfusion Imaging AdjunctIndications:Myocard ial Perfusion Imaging Adjunct Given 02/11/2020 1:02 PM CDT 0.4 mg tc-99m sestamibi unit dose injection 13 millicurie 13 millicurie, intravenous, Once in imaging, radiopharmaceutical, Starting on Sun02/11/20 at 1149, For 1 dose, Indications: Diagnostic RadiographyIndications:Caren gnostic Radiography Given 02/11/2020 11:49 AM CDT 13 millicuries tc-99m sestamibi unit dose injection 37.2 millicurie 37.2 millicurie, intravenous, Once in imaging, radiopharmaceutical, Starting on Sun02/11/20 at 1300, For 1 dose, Indications: Diagnostic RadiographyIndications:Caren gnostic Radiography Given 02/11/2020 1:01 PM CDT 37.2 millicuries documented in this encounter Care Teams Tie Loader Relationship Specialty Start Date End Date Aj Orellana MD [address] [place] [address] PCP - General Family Medicine 08/28/19 04/16/22 documented as of this encounter
--- OUTSIDE RECORDS SUMMARY | 2024-07-13 12:42 | XMS_ITS | Encounter Summary ---
Author Organization [facility] Address [address] [place] [address] Care Team Providers Care Photo Technician Name Role Phone Aj Orellana MD Primary Care Provider [phone] Encounter Details Date Type Department Care Team (Late st Contact Info) Description 12/25/2019 Orders Only [facility] Cardiology [address] [facility] [address] [place] [address] Isela Cohen MD [address] [place] [address] Social History Tobacco Use Types Packs/Day Years Used Date Smoking Tobacco: Never Smokeless Tobacco: Never Alcohol Use Standard Drinks/Week Comments Not Currently 0 (1 standard drink = 0.6 oz pur e alcohol) Comments Unknown Sex and Gender Information Value Date Recorded Sex Assigned at Not on file Legal Sex Female 10:24 PM NURSING SUPPORT WORKER Gender Identity Female 07/13/2021 9:40 PM NURSING SUPPORT WORKER Sexual Orientation Straight 07/13/2021 9: 40 PM NURSING SUPPORT WORKER documented as of this encounter Plan of Treatment Not on file documented as of this encounter Procedures Procedure Name Priority Date/Time Associated Diagnosis Comments CARDIOLOGY DOCUMENT SCAN Routine 12/25/2019 documented in this encounter Results * SCAN - CARDIOLOGY (12/25/2019) Anatomical Region Laterality Modality Other Isela Cohen MD CV CARDIAC SERVICES PROCEDU RES Final Result documented in this encounter Visit Diagnoses Not on filedocumented in this encounter Care Teams Photo Technician Relationship Specialty Start Date End Date Aj Orellana MD [address] [place] [address] PCP - General Family Medicine 08/28/19 04/16/22 documented as of this encounter
--- OUTSIDE RECORDS SUMMARY | 2024-07-13 12:42 | XMS_ITS | Encounter Summary ---
Author Organization [facility] Healthcare Address [address] [place] [address] Care Team Providers Care Spring Assembler Supervisor Name Role Phone Gardenia Siu MD Primary Care Provider Reason for Visit * Reason Comments Atrial Fibrillation Sleep Apnea 6 mo f/u Encounter Details Date Type Department Care Team ([facility] st Contact Info) Description 04/25/2023 9:30 AM CDT Office Visit [facility] Cardiology [address] [facility] [address] [place] [address] Thien Rascon MD [address] [address] Paroxysmal atrial fibrillation (CMS/HCC) (HCC) (Primary Dx); Chronic anticoagulation; ROXANNA (obstructive sleep apnea); Encounter for monitoring sotalol therapy Social History Tobacco Use Types Packs/Day Years Used Date Smoking Tobacco: Never Smokeless Tobacco: Never Alcohol Use Standard Drinks/Week Comments Not Currently 0 (1 standard drink = 0.6 oz pur e alcohol) Comments Unknown Sex and Gender Information Value Date Recorded Sex Assigned at Not on file Legal Sex Female 10:24 PM GARBAGE TRUCK DISPATCHER Gender Identity Female 07/13/2021 9:40 PM GARBAGE TRUCK DISPATCHER Sexual Orientation Straight 07/13/2021 9: 40 PM GARBAGE TRUCK DISPATCHER documented as of this encounter Last Filed Vital Signs Vital Sign Reading Time Taken Comments Blood Pressure 124/66 04/25/2023 9:36 AM CDT Pulse 60 04/25/2023 9:36 AM CDT Temperature - - Respiratory Rate - - Oxygen Saturation 98% 04/25/2023 9:36 AM CDT Inhaled Oxygen Concentration - - Weight 108.9 kg (240 lb) 04/25/2023 9:36 AM CDT Height 172.7 cm (5' 8 ) 04/25/2023 9:36 AM CDT Body Mass Index 36.49 04/25/2023 9:36 AM CDT documented in this encounter Progress Notes * Thien Rascon MD - 04/25/2023 9:30 AM CDT [facility] Cardiology [address] [place] [address] Date of Visit: 04/25/2023 Patient ID: Liz Overton [id number] Chief Complaint: [...] inAFib with RVR and was sent to [facility] on 08/28/2019. She denied feeling any [...] an outpatient. 09/26/2019 hospital follow-up televisit with COFFEE GRINDER: The patient reports overall feeling well since [...] paroxysmal nocturnal dyspnea orthopnea. Hospital follow-up with COFFEE GRINDER 02/04/2020: At the last visit, she was [...] dyspnea, bleeding problems, edema Follow-up visit with COFFEE GRINDER 04/17/2022: She missed her follow-up appointment in December because she had COVID. Ever since then she has felt tired and somewhat weak. From August to mid November she had no episodes of AFib but in December she had 2, March she has 3, and she had 1 last week. General Specific shows a heart rate of 150s to [...] presyncope, paroxysmal nocturnal dyspnea orthopnea, significant edema Records that I personally reviewed on the day of this visit include: (the interpretation is outlined in the HPI above) August 2019 [facility] inpatient records including the consultation note [...] Negative for environmental allergies. Vital Signs: BP 124/66 (BP Location: Right arm, Patient Position: Sitting) Pulse 60 Ht 172.7 cm (5' 8 ) Wt108.9 kg (240 lb) SpO2 98% BMI 36.49 kg/m?? Physical Exam Vitals reviewed. HENT: Head: [...] 1 tablet (88 mcg total) by mouth silk screen layout drafter beforebreakfast, Disp: , Rfl: loratadine (CLARITIN) 10 mg tablet, Take 1 tablet (10 mg total) by mouth daily, Disp: , Rfl: sotaloL (BETAPACE) 80 mg tablet, Take 1 tablet (80 mg total) by mouth 2 (two) times a day, Disp: 180 tablet, Rfl: 3 Xarelto 20 mg tablet, TAKE 1 TABLET(20 MG) BY MOUTH DAILY, Disp: 90 tablet, Rfl: 1 EKG 12/25/2019: Atrial fibrillation with rapid ventricular response EKG 07/14/2021: Normal sinus rhythm. QTC 467 milliseconds. LAFB. Nonspecific T- wave abnormality. Abnormal EKG EKG 04/25/2023: Normal sinus rhythm. QTC 475. RSR prime. Left axis deviation. MPI 02/12/[address] changes. Global [...] ischemia is present. Recommend follow up with supervisor cook house. MPI 05/08/[address] changes. Specificity [...] monitoring sotalol therapy QTC slightly prolonged at 475 milliseconds Recurrent chest pain Cannot exclude angina Plan/Recommendations: EKG today because of sotalol use Will reduce her sotalol dose to 80 mg in the a.m. and 40 mg in the p.m. because her QTC has prolonged slightly She is otherwise stable. Recommend she continue her Xarelto without change for anticoagulation and atrial fibrillation purposes. Continue her CPAP therapy. Follow-up in 6 months or sooner as clinically indicated Thien Rascon MD, [facility] This note is dictated and transcribed using [employer] Direct Software. Transit Department Clerk variancesmay occur. Despite proofreading, typographical errors may occur. documented in this encounter Miscellaneous Notes * Addendum Note - Nati Og MA - 04/25/2023 9:30 AM CDTAddended by: NATI OG on: 04/25/2023 10:37 AM Modules accepted: Orders documented in this encounter Plan of Treatment Not on file documented as of this encounter Procedures Procedure Name Priority Date/Time Associated Diagnosis Comments ECG 12-LEAD Routine 04/25/2023 Paroxysmal atrial fibrillation (CMS/HCC) ([facility]) Encounter for monitoring sotalol therapy documented in this encounter Results * ECG 12 lead (04/25/2023) us Thien Rascon MD ECG ORDERABLES Final Res ult documented in this encounter Visit Diagnoses Diagnosis Paroxysmal atrial fibrillation (CMS/HCC) (HCC)- Primary Atrial fibrillation Chronic anticoagulation Encounter for long-term (current) use of anticoagulants ROXANNA (obstructive sleep apnea) Obstructive sleep apnea (adult) (pediatric) Encounter for monitoring sotalol therapy documented in this encounter Historical Medications * This list may reflect changes made after this encounter. loratadine (CLARITIN) 10 mg tablet Take 1 tablet (10 mg total) by mouth daily added in this encounter Care Teams Spring Assembler Supervisor Relationship Specialty Start Date End Date Gardenia Siu MD PCP - General Family Practice 04/17/22 documented as of this encounter
--- OUTSIDE RECORDS SUMMARY | 2024-07-13 12:42 | XMS_ITS | Encounter Summary ---
Author Organization [facility] Address [address] [place] [address] Care Team Providers Care Manager Of Clinical Name Role Phone Aj Orellana MD Primary Care Provider [phone] Reason for Visit * Reason Onset Date Comments Med Refill 09/29/2019 Encounter Details Date Type Department Care Team (Late st Contact Info) Description 09/29/2019 Telephone [facility] Cardiology [address] [place] [address] Thien Rascon MD [address] [place] [id number] Med Refill Social History Tobacco Use Types Packs/Day Years Used Date Smoking Tobacco: Never Smokeless Tobacco: Never Alcohol Use Standard Drinks/Week Comments Not Currently 0 (1 standard drink = 0.6 oz pur e alcohol) Comments Unknown Sex and Gender Information Value Date Recorded Sex Assigned at Not on file Legal Sex Female 10:24 PM CHEMIST INORGANIC Gender Identity Female 07/13/2021 9:40 PM CHEMIST INORGANIC Sexual Orientation Straight 07/13/2021 9: 40 PM CHEMIST INORGANIC COVID-19 Exposure Response Date Recorded In the last month, have you been in contact with someone who was confirmed or suspected to have Coronavirus / COVID-19? No / Unsure 09/26/2019 11:52 AM CDT documented as of this encounter Ordered Prescriptions Prescription Sig Dispense Quantity Refills Last Filled Start Date End Date Xarelto 20 mg tabletIndications:Chr onic anticoagulation Take 1 tablet (20 mg total) by mouth daily 90 tablet 3 09/29/2019 0 documented in this encounter Miscellaneous Notes * Telephone Encounter - Nati Og MA - 09/29/2019 1:45 PM CDT Refills approved and sent to pharmacy as requested. * Telephone Encounter - Britany Max - 09/29/2019 12:54 PM CDT Patient/and or Pharmacy calling to request refills on the following medications: xarelto 20 mg tabs Pharmacy: [place], [place] documented in this encounter Plan of Treatment Not on file documented as of this encounter Visit Diagnoses Diagnosis Chronic anticoagulation Encounter for long-term (current) use of anticoagulants documented in this encounter Discontinued Medications Medication Sig Discontinue Reason Start Date End Da te Xarelto 20 mg tabletIndications:Chronic anticoagulation Take 1 tablet (20 mg total) by mouth daily Reorder 09/26/2019 09/29/2019 documented as of this encounter Care Teams Manager Of Clinical Relationship Specialty Start Date End Date Aj Orellana MD [address] [place] [address] PCP - General Family Medicine 08/28/19 04/16/22 documented as of this encounter
--- OUTSIDE RECORDS SUMMARY | 2024-07-13 12:42 | XMS_ITS | Encounter Summary ---
Author Organization [facility] Healthcare Address [address] [place] [address] Care Team Providers Care Bad Credit Collector Name Role Phone Gardenia Siu MD Primary Care Provider Reason for Visit * Reason Comments Follow-up 6 mo f/u Atrial Fibrillation Sleep Apnea Encounter Details Date Type Department Care Team ([facility] Contact Info) Description 11/01/2023 8:45 AM CDT Office Visit [facility] Cardiology [address] [place] [address] Thien Rascon MD [address] [place] [place] [id number] Paroxysmal atrial fibrillation (CMS/HCC) (HCC) (Primary Dx); Chronic anticoagulation; Encounter for monitoring sotalol therapy; Recurrent chest pain; Diastolic dysfunction; ROXANNA (obstructive sleep apnea) Social History Tobacco Use Types Packs/Day Years Used Date Smoking Tobacco: Never Smokeless Tobacco: Never Alcohol Use Standard Drinks/Week Comments Not Currently 0 (1 standard drink = 0.6 oz pur e alcohol) Comments Unknown Sex and Gender Information Value Date Recorded Sex Assigned at Not on file Legal Sex Female 10:24 PM PLAYBACK OPERATOR Gender Identity Female 07/13/2021 9:40 PM PLAYBACK OPERATOR Sexual Orientation Straight 07/13/2021 9: 40 PM PLAYBACK OPERATOR documented as of this encounter Last Filed Vital Signs Vital Sign Reading Time Taken Comments Blood Pressure 120/78 11/01/2023 8:30 AM CDT Pulse 67 11/01/2023 8:30 AM CDT Temperature - - Respiratory Rate - - Oxygen Saturation 97% 11/01/2023 8:30 AM CDT Inhaled Oxygen Concentration - - Weight 107.9 kg (237 lb 14.4 oz) 11/01/2023 8:30 AM CDT Height 172.7 cm (5' 8 ) 11/01/2023 8:30 AM CDT Body Mass Index 36.17 11/01/2023 8:30 AM CDT documented in this encounter Progress Notes * Thien Rascon MD - 11/01/2023 8:45 AM CDT [facility] Cardiology [address] [place] [address] Date of Visit: 11/01/2023 Patient ID: Liz Overton 1950 Chief Complaint: [...] inAFib with RVR and was sent to [facility] on 08/28/2019. She denied feeling any [...] an outpatient. 09/26/2019 hospital follow-up televisit with OVERSIZE LOAD PILOT ESCORT: The patient reports overall feeling well since [...] paroxysmal nocturnal dyspnea orthopnea. Hospital follow-up with OVERSIZE LOAD PILOT ESCORT 02/04/2020: At the last visit, she was [...] dyspnea, bleeding problems, edema Follow-up visit with OVERSIZE LOAD PILOT ESCORT 04/17/2022: She missed her follow-up appointment in December because she had COVID. Ever since then she has felt tired and somewhat weak. From August to mid November she had no episodes of AFib but in December she had 2, March she has 3, and she had 1 last week. [employer] shows a heart rate of 150s to [...] described symptoms. N egative stress test past Records that I personally reviewed on the day of this visit include: (the interpretation is outlined in the HPI above) August 2019 [facility] inpatient records including the consultation note [...] allergies. Vital Signs: BP 120/78 (BP Location: Right arm, Patient Position: Sitting) Pulse 67 Ht 172.7 cm (5' 8 ) Wt107.9 kg (237 lb 14.4 oz) SpO2 97% BMI 36.17 kg/m?? Physical Exam Vitals reviewed. HENT: Head: [...] 1 tablet (88 mcg total) by mouth senior officer beforebreakfast, Disp: , Rfl: loratadine (CLARITIN) 10 mg tablet, Take 1 tablet (10 mg total) by mouth daily, Disp: , Rfl: sotaloL (BETAPACE) 80 mg tablet, Take 1 tablet (80 mg total) by mouth 2 (two) times a day (Patient taking differently: Take 1 tablet (80 mg total) by mouth 2 (two) times a day Take 80 mg in the am and 40 mg in the pm.), Disp: 180 tablet, Rfl: 3 Xarelto 20 [...] ischemia is present. Recommend follow up with strategic planning analyst. MPI 05/08/[address] changes. Specificity [...] Recurrent chest pain Cannot exclude angina Plan/Recommendations: Continue her sotalol at current dosing for her AFib. Have offered coronary artery CT scan Or even cardiac catheterization to define her anatomy given her recurrent chest pain and feeling of listlessness but she wishes to defer. She is otherwise stable. Recommend she continue her Xarelto without change for anticoagulation andatrial fibrillation purposes. Continue her CPAP therapy. Follow-up in 6 months or sooner as clinically indicated Thien Rascon MD, [facility] This note is dictated and transcribed using [employer] Direct Software. Clinical Nutrition Manager variancesmay occur. Despite proofreading, typographical errors may occur. documented in this encounter Plan of Treatment Not on file documented as of this encounter Visit Diagnoses Diagnosis Paroxysmal atrial fibrillation (CMS/HCC) (HCC)- Primary Atrial fibrillation Chronic anticoagulation Encounter for long-term (current) use of anticoagulants Encounter for monitoring sotalol therapy Recurrent chest pain Unspecified chest pain Diastolic dysfunction Unspecified heart disease ROXANNA (obstructive sleep apnea) Obstructive sleep apnea (adult) (pediatric) documented in this encounter Historical Medications * This list may reflect changes made after this encounter. ergocalciferol (VITAMIN D) 50,000 unit capsule TAKE 1 CAPSULE BY MOUTH WEEKLY 08/11/2023 added in this encounter Care Teams Bad Credit Collector Relationship Specialty Start Date End Date Gardenia Siu MD PCP - General Family Practice 04/17/22 documented as of this encounter
--- OUTSIDE RECORDS SUMMARY | 2024-07-13 12:42 | XMS_ITS | Encounter Summary ---
Author Organization [facility] Address [address] [place] [address] Care Team Providers Care Acoustics Teacher Name Role Phone Aj Orellana MD Primary Care Provider [phone] Encounter Details Date Type Department Care Team (Latest Contact Info) Description 01/05/2020 9:30 AM CDT Procedure visit [facility] Cardiology [address] [place] [address] Paroxysmal atrial fibrillation (CMS/HCC) Social History Tobacco Use Types Packs/Day Years Used Date Smoking Tobacco: Never Smokeless Tobacco: Never Alcohol Use Standard Drinks/Week Comments Not Currently 0 (1 standard drink = 0.6 oz pur e alcohol) Comments Unknown Sex and Gender Information Value Date Recorded Sex Assigned at Not on file Legal Sex Female 10:24 PM DEWAXER Gender Identity Female 07/13/2021 9:40 PM DEWAXER Sexual Orientation Straight 07/13/2021 9: 40 PM DEWAXER documented as of this encounter Progress Notes * Rebecca Arias MA - 01/05/2020 9:30 AM CDT Patient here for an EKG after decreasing sotalol to 80 mg in the morning and 40 mg int he evening. Patient states she is feeling much better and was actually able to go out and do some yard work thisweekend without any problems. HR: 50, BP: 122/74, OX: 97%. Per RORY Blackburn continue current regimen and call if any fatigue or dizziness occur, otherwise we will see patient at the end of the monthwith RORY Blackburn. documented in this encounter Plan of Treatment Not on file documented as of this encounter Procedures Procedure Name Priority Date/Time Associated Diagnosis Comments ECG 12-LEAD Routine 01/05/2020 Paroxysmal atrial fibrillation (CMS/HCC) documented in this encounter Results * ECG 12 lead (01/05/2020) us Thien Rascon MD ECG ORDERABLES Final Res ult documented in this encounter Visit Diagnoses Diagnosis Paroxysmal atrial fibrillation (CMS/HCC) (HCC) Atrial fibrillation documented in this encounter Care Teams Acoustics Teacher Relationship Specialty Start Date End Date Aj Orellana MD [address] [place] [address] PCP - General Family Medicine 08/28/19 04/16/22 documented as of this encounter
--- OUTSIDE RECORDS SUMMARY | 2024-07-13 12:42 | XMS_ITS | Encounter Summary ---
Author Organization [facility] Address [address] [place] [address] Care Team Providers Care Dielectric Press Operator Name Role Phone Gardenia Siu MD Primary Care Provider Encounter Details Date Type Department Care Team ([facility] Contact Info) Description 05/19/2022 Telephone [facility] Cardiology [address] [place] [address] Thien Rascon MD [facility] [place] [id number] Social History Tobacco Use Types Packs/Day Years Used Date Smoking Tobacco: Never Smokeless Tobacco: Never Alcohol Use Standard Drinks/Week Comments Not Currently 0 (1 standard drink = 0.6 oz pur e alcohol) Comments Unknown Sex and Gender Information Value Date Recorded Sex Assigned at Not on file Legal Sex Female 10:24 PM PIPE INSPECTOR Gender Identity Female 07/13/2021 9:40 PM PIPE INSPECTOR Sexual Orientation Straight 07/13/2021 9: 40 PM PIPE INSPECTOR documented as of this encounter Ordered Prescriptions Prescription Sig Dispense Quantity Refills Last Filled Start Date End Date sotaloL (BETAPACE) 80 mg tabletIndications: Paroxysmal atrial fibrillation (CMS/HCC) (HCC) Take 1 tablet (80 mg total) by mouth 2 (two) times a day 135 tablet 05/19/2022 07/31/2022 documented in this encounter Miscellaneous Notes * Telephone Encounter - Nati Og MA - 05/19/2022 11:43 AM CST Refills approved and sent to pharmacy as requested. INSPECTOR * Telephone Encounter - Kenia Avitia - 05/19/2022 8:25 AM PIPE INSPECTOR Pt called requesting a refill for Sotalol 80 mg tabs to be sent to [facility] pharm. [phone] INSPECTOR documented in this encounter Plan of Treatment Not on file documented as of this encounter Visit Diagnoses Diagnosis Paroxysmal atrial fibrillation (CMS/HCC) (HCC) Atrial fibrillation documented in this encounter Discontinued Medications Medication Sig Discontinue Reason Start Date End Da te sotaloL (BETAPACE) 80 mg tabletIndications:Paroxys mal atrial fibrillation (CMS/HCC) (HCC) Take 1 tablet (80 mg total) by mouth 2 (two) times a day Reorder 04/17/2022 05/19/2022 documented as of this encounter Care Teams Dielectric Press Operator Relationship Specialty Start Date End Date Gardenia Siu MD PCP - General Family Practice 04/17/22 documented as of this encounter
--- OUTSIDE RECORDS SUMMARY | 2024-07-13 12:42 | XMS_ITS | Encounter Summary ---
Author Organization [facility] Address [address] [place] [address] Care Team Providers Care Whip Operator Name Role Phone Aj Orellana MD Primary Care Provider [phone] Encounter Details Date Type Department Care Team (Late st Contact Info) Description 02/23/2020 Telephone [facility] Cardiology [address] [place] [address] Thien Barbour MD [address] [id number] Social History Tobacco Use Types Packs/Day Years Used Date Smoking Tobacco: Never Smokeless Tobacco: Never Alcohol Use Standard Drinks/Week Comments Not Currently 0 (1 standard drink = 0.6 oz pur e alcohol) Comments Unknown Sex and Gender Information Value Date Recorded Sex Assigned at Not on file Legal Sex Female 10:24 PM INSULATION AND FLOORING ASSEMBLER Gender Identity Female 07/13/2021 9:40 PM INSULATION AND FLOORING ASSEMBLER Sexual Orientation Straight 07/13/2021 9: 40 PM INSULATION AND FLOORING ASSEMBLER documented as of this encounter Miscellaneous Notes * Telephone Encounter - Horace Ceballos RN - 02/24/2020 10:58 AM CDT I called this patient back and reviewed dr. barbour's message. Pt said she will not increase her medication anymore without our guidance. Patient will keep track and let us know if she has anymore afib episodes and if she does she will call us and be referred to [facility] OTT. * Telephone Encounter - Thien Barbour MD - 02/24/2020 10:34 AM CDT She should not increase sotalol on her own without guidance from us. Since she is still having episodes atrial fibrillation despite sotalol therapy, she can be referred to electrophysiology for consideration of ablation. * Telephone Encounter - Horace Ceballos RN - 02/23/2020 11:22 AM CDT Pt also said she had two episodes twice this week she had one Sunday night and Sunday night. Pt said she felt her heart racing pt feels weak and tired. She is wondering why she keeps having these a-fib episodes. Pt has no energy to even walk in her bedroom. Pt said her episodes lasted from 4pm and she went to bed around 6p.m & she felt fine when she woke up. Pt increased her medication After the first episode on Sunday night to full tablet twice a day she is taking: sotolol 80mg BID Patient wants to know why she keeps having these episodes and wants to know what Dr. Barbour recommends if the increase in medication doesn't stop these episodes. Please Advise! * Telephone Encounter - Horace Ceballos RN - 02/23/2020 11:17 AM CDT Pt calling to find out about her stress test, I will fwd to Dr. Barbour to review and comment on patients stress test results. * Telephone Encounter - Britany Max - 02/23/2020 10:08 AM CDT Pt called to request results on her recent stress test. documented in this encounter Plan of Treatment Not on file documented as of this encounter Visit Diagnoses Not on filedocumented in this encounter Care Teams Whip Operator Relationship Specialty Start Date End Date Aj Orellana MD [address] [place] [address] PCP - General Family Medicine 08/28/19 04/16/22 documented as of this encounter
--- OUTSIDE RECORDS SUMMARY | 2024-07-13 12:42 | XMS_ITS | Encounter Summary ---
Author Organization [facility] Care Team Providers Care Life Science Technical Officer Name Role Phone Aj Orellana MD Primary Care Provider [phone] Encounter Details Date Type Department Care Team (Latest Contact Info) Description 09/26/2019 Travel Social History Tobacco Use Types Packs/Day Years Used Date Smoking Tobacco: Never Smokeless Tobacco: Never Alcohol Use Standard Drinks/Week Comments Not Currently 0 (1 standard drink = 0.6 oz pur e alcohol) Comments Unknown Sex and Gender Information Value Date Recorded Sex Assigned at Not on file Legal Sex Female 10:24 PM WAFER FAB OPERATOR Gender Identity Female 07/13/2021 9:40 PM WAFER FAB OPERATOR Sexual Orientation Straight 07/13/2021 9: 40 PM WAFER FAB OPERATOR COVID-19 Exposure Response Date Recorded In the last month, have you been in contact with someone who was confirmed or suspected to have Coronavirus / COVID-19? No / Unsure 09/26/2019 11:52 AM CDT documented as of this encounter Plan of Treatment Not on file documented as of this encounter Visit Diagnoses Not on filedocumented in this encounter Care Teams Life Science Technical Officer Relationship Specialty Start Date End Date Aj Orellana MD [address] [place] [address] PCP - General Family Medicine 08/28/19 04/16/22 documented as of this encounter
--- OUTSIDE RECORDS SUMMARY | 2024-07-13 12:42 | XMS_ITS | Encounter Summary ---
Author Organization [facility] Address [address] [place] [address] Care Team Providers Care [facility] Psychiatrist Name Role Phone Aj Orellana MD Primary Care Provider [phone] Reason for Visit * Reason Comments Atrial Fibrillation EKG only visit * (Routine) - Closed Specialty Diagnoses / Procedures Referred By Contac t Referred To Contact Diagnoses Paroxysmal atrial fibrillation (CMS/HCC) (HCC) Procedures ECG 12 lead Hubert Andrews MD [address] [address] Phone: tel: fax: [facility] Referral ID Status Reason Start Date Expiration Date Visits Re quested Visits Authorized [id number] Closed 12/26/2019 07/06/2021 1 1 Encounter Details Date Type Department Care Team (Latest Contact Info) Description 12/29/2019 10:00 AM CDT Procedure visit [facility] Cardiology [address] [place] [id number] Paroxysmal atrial fibrillation (CMS/HCC); Chronic anticoagulation Social History Tobacco Use Types Packs/Day Years Used Date Smoking Tobacco: Never Smokeless Tobacco: Never Alcohol Use Standard Drinks/Week Comments Not Currently 0 (1 standard drink = 0.6 oz pur e alcohol) Comments Unknown Sex and Gender Information Value Date Recorded Sex Assigned at Not on file Legal Sex Female 10:24 PM SENIOR COMPENSATION CONSULTANT Gender Identity Female 07/13/2021 9:40 PM SENIOR COMPENSATION CONSULTANT Sexual Orientation Straight 07/13/2021 9: 40 PM SENIOR COMPENSATION CONSULTANT documented as of this encounter Last Filed Vital Signs Vital Sign Reading Time Taken Comments Blood Pressure 122/64 12/29/2019 10:24 AM CDT Pulse 45 12/29/2019 10:24 AM CDT Temperature - - Respiratory Rate - - Oxygen Saturation 98% 12/29/2019 10:24 AM CDT Inhaled Oxygen Concentration - - Weight - - Height - - Body Mass Index - - documented in this encounter Ordered Prescriptions Prescription Sig Dispense Quantity Refills Last Filled Start Date End Date Xarelto 20 mg tabletIndications:Chr onic anticoagulation Take 1 tablet (20 mg total) by mouth daily 90 tablet 3 12/29/2019 1 documented in this encounter Progress Notes * Nati Og MA - 12/29/2019 10:00 AM CDT Patient here for EKG after ER visit and sotalol adjustment to 80 mg BID. Patient states she feels tired but better. BP 122/64, right arm, sitting. HR 45 BPM. SpO2 98% on room air. EKG performed and given to KISHORE Tovar for review. Per Bere, patient to decrease sotalol dose to 80 mg inthe am and 40 mg in the pm, repeat EKG in one week and f/u with Dr. Rascon or herself in 4 weeks. Medication changed on med list. Patient notified of Theodore's instructions and voiced understanding. Appointments made and reminders printed and given to patient. Patient requested a refill for Xarelto 20 mg for a 90 day supply to be sent to [facility] in [place]. Refills sent as requested. documented in this encounter Miscellaneous Notes * Addendum Note - Nati Og MA - 12/29/2019 10:00 AM CDTAddended by: NATI OG on: 12/29/2019 10:32 AM Modules accepted: Orders documented in this [...] Paroxysmal atrial fibrillation (CMS/HCC) (HCC) Atrial fibrillation Chronic anticoagulation Encounter for long-term (current) use of anticoagulants documented in this encounter Discontinued Medications Medication Sig Discontinue Reason Start Date End Da te Xarelto 20 mg tabletIndications:Chronic anticoagulation Take 1 tablet (20 mg total) by mouth daily Reorder 09/29/2019 12/29/2019 documented as of this encounter Orders EKG Orders Without Results Count Last Ordered D ate First Ordered Date ECG 12-LEAD 1 12/29/2019 documented in this encounter Care Teams [facility] Facility Psychiatrist Relationship Specialty Start Date End Date Aj Orellana MD [address] [place] [address] PCP - General Family Medicine 08/28/19 04/16/22 documented as of this encounter
--- OUTSIDE RECORDS SUMMARY | 2024-07-13 12:42 | XMS_ITS | Encounter Summary ---
Author Organization [facility] Address [address] [place] [address] Care Team Providers Care Logistics Director Name Role Phone Aj Orellana MD Primary Care Provider [phone] Reason for Visit * Reason Comments Atrial Fibrillation Sleep Apnea 3 mo f/u Encounter Details Date Type Department Care Team ([facility] Contact Info) Description 12/25/2019 11:30 AM CDT Office Visit [facility] Cardiology [address] [place] [address] Thien Rascon MD [address] [id number] Paroxysmal atrial fibrillation (CMS/HCC) (Primary Dx); Chronic anticoagulation; ROXANNA (obstructive sleep apnea); Diastolic dysfunction Social History Tobacco Use Types Packs/Day Years Used Date Smoking Tobacco: Never Smokeless Tobacco: Never Alcohol Use Standard Drinks/Week Comments Not Currently 0 (1 standard drink = 0.6 oz pur e alcohol) Comments Unknown Sex and Gender Information Value Date Recorded Sex Assigned at Not on file Legal Sex Female 10:24 PM TOBACCO ACREAGE MEASURER Gender Identity Female 07/13/2021 9:40 PM TOBACCO ACREAGE MEASURER Sexual Orientation Straight 07/13/2021 9: 40 PM TOBACCO ACREAGE MEASURER documented as of this encounter Last Filed Vital Signs Vital Sign Reading Time Taken Comments Blood Pressure 124/68 12/25/2019 11:54 AM CDT Pulse 94 12/25/2019 11:54 AM CDT Temperature - - Respiratory Rate - - Oxygen Saturation 98% 12/25/2019 11:54 AM CDT Inhaled Oxygen Concentration - - Weight 106.1 kg (234 lb) 12/25/2019 11:54 AM CDT Height 174 cm (5' 8.5 ) 12/25/2019 11:54 AM CDT Body Mass Index 35.06 12/25/2019 11:54 AM CDT documented in this encounter Progress Notes * Thien Rascon MD - 12/25/2019 11:30 AM CDT [facility] Cardiology [address] [place] [address] Date of Visit: 09/26/2019 Patient ID: Liz [...] inAFib with RVR and was sent to [facility] on 08/28/2019. She denied feeling [...] an outpatient. 09/26/2019 hospital follow-up televisit with BOX TOE BUFFER: The patient reports overall feeling well since [...] No syncope, edema, paroxysmal nocturnal dyspnea orthopnea. Records that I personally reviewed on the day of this visit include: (the interpretation is outlined in the HPI above) August 2019 [facility] inpatient records including the consultation note from Dr. Rascon, echocardiogram report, cardiology progress notes and discharge summary I have also reviewed: allergies, current medications, past family history, past medical history, past social history, past surgical history and problem list Review of Systems Constitution: Positive for malaise/fatigue. Negative for weight gain and weight loss. HENT: Negative for hearing loss. Eyes: Negative for blurred vision and visual disturbance. Cardiovascular: Negative for chest pain, claudication, dyspnea on exertion, irregular heartbeat, leg swelling, near-syncope, orthopnea, palpitations, paroxysmal nocturnal dyspnea and syncope. Respiratory: Positive for shortness of breath. Negative for cough, hemoptysis, snoring, sputum production and wheezing. Endocrine: Negative [...] Negative for environmental allergies. Vital Signs: BP 124/68 (BP Location: Left arm, Patient Position: Sitting) Pulse 94 Ht 174 cm (5' 8.5 ) Wt 106.1 kg (234 lb) SpO2 98% BMI 35.06 kg/m?? Physical Exam Constitutional: She is oriented to person, place, and time. She appears well-nourished. HENT: Head: Normocephalic and atraumatic. Nose: Nose normal. Eyes: Conjunctivae and EOM are normal. No scleral icterus. Neck: Neck supple. Cardiovascular: Normal heart sounds and intact distal pulses. An irregularly irregular rhythm present. Tachycardia present. Exam reveals no gallop and no friction [...] mcg tablet, Take 88 mcg by mouth senior web designer before breakfast, Disp: , Rfl: ??? sotaloL (BETAPACE) 80 mg tablet, TAKE 1/2 TABLET(40 MG) BY MOUTH TWICE DAILY, Disp: 90 tablet, Rfl: 3 ??? Xarelto 20 mg tablet, Take 1 tablet (20 mg total) by mouth daily, Disp: 90 tablet, Rfl: 3 EKG 12/25/2019: Atrial fibrillation with rapid ventricular response Assessment: Diagnoses and all orders for this visit: Paroxysmal atrial fibrillation (CMS/HCC) (Primary) Back in atrial fibrillation with rapid ventricular response: Chronic anticoagulation On anticoagulation without bleeding problems ROXANNA (obstructive sleep apnea) Compliant Diastolic dysfunction Plan/Recommendations: She is back in atrial fibrillation with rapid ventricular response. She has been compliant with heranticoagulation. It typically I would perform an outpatient elective cardioversion on her later today but given coronavirus situation, she cannot get a COVID test this rapidly. Also there is [facility] no [facility]. Therefore she is going to have to go to the ER and be admitted and treated accordingly. Will likely use some rate control strategy initially with diltiazem and continue sotalol. Will possibly increase sotalol and monitor QTC and plan for cardioversion probably tomorrow. Continue anticoagulation. She also may need an outpatient referral to electrophysiology for PAF ablation. She also needs a stress test as an outpatient. Follow-up after hospitalization. EKG today Thien Rascon MD, [facility] This note is dictated and transcribed using [employer] Software. Tv Production Assistant variancesmay occur. Despite proofreading, typographical errors may occur. documented in this encounter Miscellaneous Notes * Addendum Note - Nati Og MA - 12/25/2019 11:30 AM CDTAddended by: NATI OG on: 12/25/2019 12:38 PM Modules accepted: Orders documented in this encounter Plan of Treatment Not on file documented as of this encounter Procedures Procedure Name Priority Date/Time Associated Diagnosis Comments ECG 12-LEAD Routine 12/25/2019 Paroxysmal atrial fibrillation (CMS/HCC) documented in this encounter Results * ECG 12 lead (12/25/2019) us Thien Rascon MD ECG ORDERABLES Final Res ult documented in this encounter Visit Diagnoses Diagnosis Paroxysmal atrial fibrillation (CMS/HCC) (HCC)- Primary Atrial fibrillation Chronic anticoagulation Encounter for long-term (current) use of anticoagulants ROXANNA (obstructive sleep apnea) Obstructive sleep apnea (adult) (pediatric) Diastolic dysfunction Unspecified heart disease documented in this encounter Care Teams Logistics Director Relationship Specialty Start Date End Date Aj Orellana MD [address] [place] [address] PCP - General Family Medicine 08/28/19 04/16/22 documented as of this encounter
--- OUTSIDE RECORDS SUMMARY | 2024-07-13 12:43 | XMS_ITS | Encounter Summary ---
Author Organization [facility] [place] [facility] Care Team Providers Care Oracle E Business Developer Name Role Phone Unavailable Primary Care Provider Unavailabl e Encounter Details Date Type Department Care Team (Late st Contact Info) Description 07/29/2014 - 07/29/2014 11:59 PM MANAGER SPA Hospital Encounter [facility] Ashu Wilson MD [address] [facility] [address] [place] [address] Pain in joint, lower leg; Localized osteoarthrosis, lower leg; Other specified circulatory system disorders; Knee joint replaced by other means Social History Tobacco Use Types Packs/Day Years Used Date Smoking Tobacco: Never Comments Unknown Sex and Gender Information Value Date Recorded Sex Assigned at Not on file Legal Sex Female 10:24 PM MANAGER SPA Gender Identity Female 07/13/2021 9:40 PM MANAGER SPA Sexual Orientation Straight 07/13/2021 9: 40 PM MANAGER SPA documented as of this encounter Plan of Treatment Not on file documented as of this encounter Procedures Procedure Name Priority Date/Time Associated Diagnosis Comments DISCHARGE LABORATORY CUMULATIVE REPORT Routine 07/30/2014 5:14 PM MANAGER SPA NM BONE IMAGING 3 PHASE Routine 07/29/2014 1:55 PM MANAGER SPA SERUM C-REACTIVE PROTEIN Routine 07/29/2014 12:30 PM MANAGER SPA BLOOD ERYTHROCYTE SEDIMENTATION RATE (ESR) Routine 07/29/2014 12:30 PM MANAGER SPA BLOOD CELL COUNT (CBC) Routine 5 12:30 PM MANAGER SPA documented in this encounter Results * Discharge Laboratory Cumulative Report (07/30/2014 5:14 PM MANAGER SPA) 07/30/2014 5:14 PM MANAGER SPA Narrative HISTORICAL RESULTS - 07/30/2014 5:14 PM MANAGER SPA ? [facility] ? Department of Laboratories ? [facility] ? [place] [facility] [address] ?[place] ? Department ?Orthopaedic Surgery ? [place] [address] Patient Name: ? LIZ TAI Med Rec Number: ?? [id number] Date of : ?1950 Gender/Age: ? Female 63 years Doctor: ? Ashu Cooper M.D. Report Date/Time: 07/30/2014 17:14 ?* Abnormal ??C Critical ??f Footnote ??^ Corrected ??L Low ??H High ?i Interp Data ??@ Reference Lab ?Chart Type: Cumulative ?HEMATOLOGY ?Standard Hematology ?07/29/2014 ?12:30:31 Test ?Units ?? Reference WBC ? 5.4 ? K/cumm ??3.8-9.8 RBC ? 4.68 ?M/cumm ??3.90-5.00 Hgb ? 13.5 ?g/dL ?12.1-15.1 Hct ? 41.5 ?% ? 36.1-44.[address] ? 278 ? K/cumm ??140-440 MCV ? 88.7 ?fL ?80.0-97.6 MCH ? 28.9 ?pg ?26.7-33.7 MCHC ?32.6 ??L ? g/dL ?32.7-35.5 RDW ? 14.1 ?% ? 11.8-14.6 MPV ? 7.9 ? fL ?6.8-10.4 Neut Pct Auto ?? 63.8 ?% ? 38.7-74.5 Lymph Pct Auto ??30.4 ?% ? 20.0-54.3 Ford Pct Auto ?? 3.5 ??L ?% ? 4.3-13.5 Eos Pct Auto ?1.8 ? % ? 0.0-6.0 Baso Pct Auto ?? 0.5 ? % ? 0.0-3.0 Neut Abs Auto ?? 3.4 ? K/cumm ??1.8-6.6 Lymph Abs Auto ??1.6 ? K/cumm ??1.2-3.3 Ford Abs Auto ?? 0.2 ? K/cumm ??0.2-1.2 Eos Abs Auto ?0.1 ? K/cumm ??0.0-0.5 Baso Abs Auto ?? 0.0 ? K/cumm ??0.0-0.2 ?07/29/2014 ?12:30:31 Test ?Units ??Reference ESR ?? 11 ?mm/H ?? 0-35 ? SEROLOGY ?07/29/2014 ?12:30:00 Test ?Units ??Reference C-Reactive Protein ??1.2 ? mg/L ?? 0.0-9.9 us Historical Provider LAB BLOOD ORDERABLES Mai barney Result HISTORICAL RESULTS * NM Bone Scan 3 Phase (07/29/2014 1:55 PM MANAGER SPA) Anatomical Region Laterality Modality N/A Nuclear Medicine 07/29/2014 1:55 PM MANAGER SPA Narrative 07/29/2014 5:29 PM MANAGER SPA CINDY VILLANUEVA M.D. GELA BLANCHARD M.D. FINAL REPORT The radiology attending physician has personally reviewed this study, and has reviewed and/or edited this written report and agrees with it. ACC# ??Date Time ??Exam [id number] Jul 29, 2014 13:55:00 [id number] 3 PHASE BONE IM EXAMINATION: ?BONE ??SCINTIGRAPHY (LIMITED) DATE OF STUDY: ??07/29/2014 RADIOPHARMACEUTICAL: ??22.0 mCi Tc-99m MDP i.v. HISTORY: ??63-year-old woman with osteoarthritis of both knees who is status post right total knee arthroplasty 2003. She reports pain in her right knee since surgery in 2003. FINDINGS: ??A limited examination of the knees was performed consisting of radionuclide angiography, immediate post-injection images, and delayed images. No prior scintigraphic examination is available for comparison. The scintigraphic images were correlated with knee radiographs from 07/21/2014 demonstrating severe tricompartmental left knee osteoarthritis and a right total knee arthroplasty in near anatomic position. The angiographic images demonstrate no areas of hyperemia. Subsequent images demonstrate multiple right leg venous collaterals compatible with prior venous thrombosis. Delayed images demonstrate a left total knee arthroplasty without areas of increased uptake to suggest loosening or infection. There is increased uptake about the left knee, most severe in the medial compartment, compatible with severe left knee osteoarthritis. ?? IMPRESSION: 1. No areas of increased uptake to suggest right knee arthroplasty loosening or infection. 2. Increased uptake about the left knee compatible with severe medial compartment predominant osteoarthritis. 3. Multiple right and left leg venous collaterals possibly compatible with prior venous thrombosis. ?? Requested By: Dictated By: ?? GELA BLANCHARD M.D. ??on Jul 29 2014 ??2:16P This document has been electronically signed by: CINDY VILLANUEVA M.D. on Jul 29 2014 ??5:29P [id number] Procedure Note Provider, Chantal, - 10/23/2016 CINDY VILLANUEVA M.D. GELA BLANCHARD M.D. FINAL REPORT The radiology attending physician has personally reviewed this study, and has reviewed and/or edited this written report and agrees with it. ACC# Date Time Exam [id number] Jul 29, 2014 13:55:00 [id number] 3 PHASE BONE IM EXAMINATION: BONE SCINTIGRAPHY (LIMITED) DATE OF STUDY: 07/29/2014 RADIOPHARMACEUTICAL: 22.0 mCi Tc-99m MDP i.v. HISTORY: 63-year-old woman with osteoarthritis of both knees who is status post right total knee arthroplasty 2003. She reports pain in her right knee since surgery in 2003. FINDINGS: A limited examination of the knees was performed consisting of radionuclide angiography, immediate post-injection images, and delayed images. No prior scintigraphic examination is available for comparison. The scintigraphic images were correlated with knee radiographs from 07/21/2014 demonstrating severe tricompartmental left knee osteoarthritis and a right total knee arthroplasty in near anatomic position. The angiographic images demonstrate no areas of hyperemia. Subsequent images demonstrate multiple right leg venous collaterals compatible with prior venous thrombosis. Delayed images demonstrate a left total knee arthroplasty without areas of increased uptake to suggest loosening or infection. There is increased uptake about the left knee, most severe in the medial compartment, compatible with severe left knee osteoarthritis. IMPRESSION: 1. No areas of increased uptake to suggest right knee arthroplasty loosening or infection. 2. Increased uptake about the left knee compatible with severe medial compartment predominant osteoarthritis. 3. Multiple right and left leg venous collaterals possibly compatible with prior venous thrombosis. Requested By: Dictated By: GELA BLANCHARD M.D. on Jul 29 2014 2:16P This document has been electronically signed by: CINDY VILLANUEVA M.D. on Jul 29 2014 5:29P [id number] Historical Provider MD RICHARDSON NM PROCEDURES Final R esult * Serum C-reactive protein (07/29/2014 12:30 PM MANAGER SPA) C-RP 1.2 0.0 - 9.9 mg/L HISTORICAL RESULTS Serum 07/29/2014 12:3 0 PM MANAGER SPA Ashu Cooper MD LAB BLOOD ORDERABLES Final Resul t HISTORICAL RESULTS * (ABNORMAL) Blood cell count (CBC) (07/29/2014 12:30 PM MANAGER SPA) Hct 41.5 36.1 - 44.3 % HISTORICAL RESULTS WBC 5.4 3.8 - 9.8 K/cumm HISTORICAL RESULTS RBC 4.68 3.90 - 5.00 M/cumm HISTORICAL RESULTS Hgb 13.5 12.1 - 15.1 g/dl HISTORICAL RESULTS MCV 88.7 80.0 - 97.6 fl HISTORICAL RESULTS MCH 28.9 26.7 - 33.7 pg HISTORICAL RESULTS MCHC 32.6(L) 32.7 - 35.5 g/dl HISTORICAL RESULTS Rdw 14.1 11.8 - 14.6 % HISTORICAL RESULTS Platelets 278 140 - 440 K/cumm HISTORICAL RESULTS MPV 7.9 6.8 - 10.4 fl HISTORICAL RESULTS Neutrophils, abs 3.4 1.8 - 6.6 K/cumm HISTORICAL RESULTS Lymphocytes, abs 1.6 1.2 - 3.3 K/cumm HISTORICAL RESULTS Monocytes, absolute 0.2 0.2 - 1.2 K/cumm HISTORICAL RESULTS Eosinophils, abs 0.1 0.0 - 0.5 K/cumm HISTORICAL RESULTS Basophils, abs 0.0 0.0 - 0.2 K/cumm HISTORICAL RESULTS Neutrophils 63.8 38.7 - 74.5 % HISTORICAL RESULTS Lymphocytes 30.4 20.0 - 54.3 % HISTORICAL RESULTS Monos 3.5(L) 4.3 - 13.5 % HISTORICAL RESULTS Eosinophils 1.8 0.0 - 6.0 % HISTORICAL RESULTS Basophils 0.5 0.0 - 3.0 % HISTORICAL RESULTS Blood specimen (specimen) 07/29/2014 12:30 PM MANAGER SPA us Ashu Cooper MD LAB BLOOD ORDERABLES Final Resul t HISTORICAL RESULTS * Blood erythrocyte sedimentation rate (ESR) (07/29/2014 12:30 PM MANAGER SPA) Erythrocyte sedimentation rate 11.0 0.0 - 35.0 mm/hr HISTORICAL RESULTS Blood specimen (specimen) 07/29/2014 12:30 PM MANAGER SPA us Ashu Cooper MD LAB BLOOD ORDERABLES Final Resul t HISTORICAL RESULTS documented in this encounter Visit Diagnoses Diagnosis Pain in joint, lower leg Localized osteoarthrosis, lower leg Localized osteoarthrosis not specified whether primary or secondary, lower leg Other specified circulatory system disorders Knee joint replaced by other means documented in this encounter
--- OUTSIDE RECORDS SUMMARY | 2024-07-13 12:43 | XMS_ITS | Encounter Summary ---
Author Organization [facility] Address [address] [facility] [place] [address] Care Team Providers Care Paper Inspector Name Role Phone Aj Orellana MD Primary Care Provider [phone] Encounter Details Date Type Department Care Team (Late st Contact Info) Description 08/29/2019 Orders Only [facility] Cardiology [address] [facility] [address] [facility] [address] [place] [address] Priyank Limon MD [address] [facility] [address] [place] [address] Social History Tobacco Use Types Packs/Day Years Used Date Smoking Tobacco: Never Comments Unknown Sex and Gender Information Value Date Recorded Sex Assigned at Not on file Legal Sex Female 10:24 PM ANGLE SHEAR OPERATOR Gender Identity Female 07/13/2021 9:40 PM ANGLE SHEAR OPERATOR Sexual Orientation Straight 07/13/2021 9: 40 PM ANGLE SHEAR OPERATOR documented as of this encounter Plan of Treatment Not on file documented as of this encounter Procedures Procedure Name Priority Date/Time Associated Diagnosis Comments CARDIOLOGY DOCUMENT SCAN Routine 08/29/2019 documented in this encounter Results * SCAN - CARDIOLOGY (08/29/2019) Anatomical Region Laterality Modality Other Priyank Limon MD CV CARDIAC SERVICES PROC EDURES Final Result documented in this encounter Visit Diagnoses Not on filedocumented in this encounter Care Teams Paper Inspector Relationship Specialty Start Date End Date Aj Orellana MD [address] [place] [address] PCP - General Family Medicine 08/28/19 04/16/22 documented as of this encounter
--- OUTSIDE RECORDS SUMMARY | 2024-07-13 12:43 | XMS_ITS | Encounter Summary ---
Author Organization [facility] Address [address] [facility] [facility] [place] [address] Care Team Providers Care Linoleum Installer Name Role Phone Aj Orellana MD Primary Care Provider [phone] Encounter Details Date Type Department Care Team (Late st Contact Info) Description 08/30/2019 Orders Only [facility] Cardiology [address] [facility] [address] [place] [address] Priyank Limon MD [address] [facility] [address] [place] [address] Social History Tobacco Use Types Packs/Day Years Used Date Smoking Tobacco: Never Comments Unknown Sex and Gender Information Value Date Recorded Sex Assigned at Not on file Legal Sex Female 10:24 PM YARD GOODS SALESPERSON Gender Identity Female 07/13/2021 9:40 PM YARD GOODS SALESPERSON Sexual Orientation Straight 07/13/2021 9: 40 PM YARD GOODS SALESPERSON documented as of this encounter Plan of [...] on filedocumented in this encounter Care Teams Linoleum Installer Relationship Specialty Start Date End Date Aj Orellana MD [address] [place] [address] PCP - General Family Medicine 08/28/19 04/16/22 documented as of this encounter
--- OUTSIDE RECORDS SUMMARY | 2024-07-13 12:43 | XMS_ITS | Encounter Summary ---
Author Organization [facility] Address [address] [facility] [address] [place] [address] Care Team Providers Care Authorization Manager Name Role Phone Aj Orellana MD Primary Care Provider [phone] Encounter Details Date Type Department Care Team (Late st Contact Info) Description 08/29/2019 Orders Only [facility] Cardiology [address] [facility] [address] [place] [address] Dottie Armstrong NP [address] [place] [address] Social History Tobacco Use Types Packs/Day Years Used Date Smoking Tobacco: Never Comments Unknown Sex and Gender Information Value Date Recorded Sex Assigned at Not on file Legal Sex Female 10:24 PM DIRECTOR CLIENT Gender Identity Female 07/13/2021 9:40 PM DIRECTOR CLIENT Sexual Orientation Straight 07/13/2021 9: 40 PM DIRECTOR CLIENT documented as of this encounter Plan of Treatment Not on file documented as of this encounter Procedures Procedure Name Priority Date/Time Associated Diagnosis Comments CARDIOLOGY DOCUMENT SCAN Routine 08/29/2019 documented in this encounter Results * SCAN - CARDIOLOGY (08/29/2019) Anatomical Region Laterality Modality Other Dottie Armstrong NP CV CARDIAC SERVICES PROCEDURES F inal Result documented in this encounter Visit Diagnoses Not on filedocumented in this encounter Care Teams Authorization Manager Relationship Specialty Start Date End Date Aj Orellana MD [address] [place] [address] PCP - General Family Medicine 08/28/19 04/16/22 documented as of this encounter
--- OUTSIDE RECORDS SUMMARY | 2024-07-13 12:43 | XMS_ITS | Encounter Summary ---
Author Organization [facility] Care Team Providers Care Automatic Print Developer Name Role Phone Unavailable Primary Care Provider Unavailabl e Encounter Details Date Type Department Care Team (Late st Contact Info) Description 07/21/2014 - 07/21/2014 11:59 PM BREAD WRAPPING MACHINE FEEDER Hospital Encounter [facility] Ashu Wilson MD [address] [facility] [place] [address] [place] [address] Pain in joint, lower leg; Localized osteoarthrosis, lower leg; Knee joint replaced by other means Social History Tobacco Use Types Packs/Day Years Used Date Smoking Tobacco: Never Comments Unknown Sex and Gender Information Value Date Recorded Sex Assigned at Not on file Legal Sex Female 10:24 PM BREAD WRAPPING MACHINE FEEDER Gender Identity Female 07/13/2021 9:40 PM BREAD WRAPPING MACHINE FEEDER Sexual Orientation Straight 07/13/2021 9: 40 PM BREAD WRAPPING MACHINE FEEDER documented as of this encounter Plan of Treatment Not on file documented as of this encounter Procedures Procedure Name Priority Date/Time Associated Diagnosis Comments KNEE RADIOGRAPHY, FRONTAL (AP), LATERAL, OBLIQUE Routine 07/21/2014 9:47 AM BREAD WRAPPING MACHINE FEEDER documented in this encounter Results * KNEE RADIOGRAPHY, FRONTAL (AP), LATERAL, OBLIQUE (07/21/2014 9:47 AM BREAD WRAPPING MACHINE FEEDER) Anatomical Region Laterality Modality N/A Radiographic Adenike ging 07/21/2014 9:47 AM BREAD WRAPPING MACHINE FEEDER Narrative 07/21/2014 11:46 PM BREAD WRAPPING MACHINE FEEDER MANNY ESTEBAN M.D. MANNY ESTEBAN, FINAL REPORT The radiology attending physician has personally reviewed this study, and has reviewed and/or edited this written report and agrees with it. ACC# ??Date Time ??Exam [id number] Jul 21, 2014 09:47:00 [id number] Knee 3 views R EXAMINATION: ?Right knee 3 views HISTORY: ??Knee osteoarthritis FINDINGS: ?? Three-view examination of right knee includes AP standing and Merchant projections of each knee. No prior studies are available for comparison. There is a total right knee arthroplasty with components in near-anatomic position. There is no fracture or osteolysis. There is severe medial compartment dominant tricompartmental left knee osteoarthritis. There is a small right knee joint effusion. IMPRESSION: ?? 1. Right total knee arthroplasty with components in near-anatomic position. 2. Severe medial compartment dominant tricompartmental left knee osteoarthritis. Requested By: Dictated By: ?? MANNY ESTEBAN, ?? on Jul 21 2014 ??9:55A This document has been electronically signed by: MANNY ESTEBAN M.D. on Jul 21 2014 11:46P [id number] Procedure Note Provider, MD Chantal - 10/23/2016 MANNY ESTEBAN M.D. MANNY ESTEBAN, FINAL REPORT The radiology attending physician has personally reviewed this study, and has reviewed and/or edited this written report and agrees with it. ACC# Date Time Exam [id number] Jul 21, 2014 09:47:00 [id number] Knee 3 views R EXAMINATION: Right knee 3 views HISTORY: Knee osteoarthritis FINDINGS: Three-view examination of right knee includes AP standing and Merchant projections of each knee. No prior studies are available for comparison. There is a total right knee arthroplasty with components in near-anatomic position. There is no fracture or osteolysis. There is severe medial compartment dominant tricompartmental left knee osteoarthritis. There is a small right knee joint effusion. IMPRESSION: 1. Right total knee arthroplasty with components in near-anatomic position. 2. Severe medial compartment dominant tricompartmental left knee osteoarthritis. Requested By: Dictated By: MANNY ESTEBAN on Jul 21 2014 9:55A This document has been electronically signed by: MANNY ESTEBAN M.D. on Jul 21 2014 11:46P [id number] us Historical Provider MD RICHARDSON XR PROCEDURES Final R esult documented in this encounter Visit Diagnoses Diagnosis Pain in joint, lower leg Localized osteoarthrosis, lower leg Localized osteoarthrosis not specified whether primary or secondary, lower leg Knee joint replaced by other means documented in this encounter
--- OUTSIDE RECORDS SUMMARY | 2024-07-13 12:43 | XMS_ITS | Encounter Summary ---
Author Organization [facility] Address [address] [place] [address] Care Team Providers Care Veneer Joiner Name Role Phone Aj Orellana MD Primary Care Provider Encounter Details Date Type Department Care Team (Late st Contact Info) Description 08/28/2019 Orders Only [facility] Cardiology [address] [place] [address] Thien Rascon MD [facility] [place] [id number] Social History Tobacco Use Types Packs/Day Years Used Date Smoking Tobacco: Never Comments Unknown Sex and Gender Information Value Date Recorded Sex Assigned at Not on file Legal Sex Female 10:24 PM AUTOMATIC PACKER OPERATOR Gender Identity Female 07/13/2021 9:40 PM AUTOMATIC PACKER OPERATOR Sexual Orientation Straight 07/13/2021 9: 40 PM AUTOMATIC PACKER OPERATOR documented as of this encounter Plan of Treatment Not on file documented as of this encounter Procedures Procedure Name Priority Date/Time Associated Diagnosis Comments CARDIOLOGY DOCUMENT SCAN Routine 08/28/2019 documented in this encounter Results * SCAN - CARDIOLOGY (08/28/2019) Anatomical Region Laterality Modality Other us Thien Rascon MD CV CARDIAC SERVICES MARK BARAJAS Final Result documented in this encounter Visit Diagnoses Not on filedocumented in this encounter Care Teams Veneer Joiner Relationship Specialty Start Date End Date Aj Orellana MD [address] [place] [place] [address] PCP - General Family Medicine 08/28/19 04/16/22 documented as of this encounter
--- OUTSIDE RECORDS SUMMARY | 2024-07-13 12:50 | XMS_ITS | Continuity of Care Document ---
Author Organization [facility] Address [address] [place] [address] Phone Care Team Providers Care Wood Finisher Apprentice Name Role Phone Negra, Julio Cesar Unavailable Unavailable Advance Directives Directive Yes / No Effective Date File Name No Information Encounters Encounter Description Practice Location Reason(s) For Visit Diagnoses Date Provider Providers Copied on Encounter [facility], [address], [place], [place], [id number], [place] tel:[phone] [facility] No Information [address], [place], [address], [place]. tel:[phone] Family History Family Member Type Diagnosis Age At Onset No Information Payers Payer name Insurance type Covered libertarian ID Authoriza tion(s) [employer] SOI CI [id number] Social History Type Description Quantity Date Captured [...]
== END 2024-07-07 14:30 | disposition home or self-care (01) ==
PROVIDERS: PCP Family Medicine; Visit Provider Internal Medicine
PROC: 4A023N7 Measurement of Cardiac Sampling and Pressure, Left Heart, Percutaneous Approach (ICD-10-PCS; CPT 93452; principal; 2024-07-07 10:00)
DX: I25.10 Atherosclerotic heart disease of native coronary artery without angina pectoris (principal); I48.0 Paroxysmal atrial fibrillation; E78.5 Hyperlipidemia, unspecified; E03.9 Hypothyroidism, unspecified; G47.33 Obstructive sleep apnea (adult) (pediatric); J45.909 Unspecified asthma, uncomplicated; E55.9 Vitamin D deficiency, unspecified; I51.89 Other ill-defined heart diseases; M19.90 Unspecified osteoarthritis, unspecified site; Z79.01 Long term (current) use of anticoagulants; Z79.899 Other long term (current) drug therapy; Z99.89 Dependence on other enabling machines and devices; Z98.890 Other specified postprocedural states; Z90.49 Acquired absence of other specified parts of digestive tract; Z98.51 Tubal ligation status; Z80.1 Family history of malignant neoplasm of trachea, bronchus and lung; Z80.3 Family history of malignant neoplasm of breast; Z80.8 Family history of malignant neoplasm of other organs or systems
CPT/HCPCS: 36415; 80048; 85025; 93458; C1769; C1887; C1894; J1644; J2003; J2250; J2305; J3010; J7040

== ENCOUNTER 2024-11-04 09:18 | Outpatient (CLI) | payer MEDICARE, SELFPAY ==
--- OUTSIDE RECORDS SUMMARY | 2024-11-04 09:49 | XMS_ITS | Continuity of Care Document ---
Author Organization [facility] Address [address] [place] [address] Phone Care Team Providers Care Statement Clerk Name Role Phone Negra, Julio Cesar Unavailable Unavailable Advance Directives Directive Yes / No Effective Date File Name No Information Encounters Encounter Description Practice Location Reason(s) For Visit Diagnoses Date Provider Providers Copied on Encounter [facility], [address], [place], [place], [id number], [place] tel:[phone] [facility] No Information [address], [place], [address], [place]. tel:[phone] Family History Family Member Type Diagnosis Age At Onset No Information Payers Payer name Insurance type Covered republican ID Authoriza ticastillo(s) [employer] SOI CI [id number] Social History Type Description Quantity Date Captured [...]
[2024-11-04 12:51] LABS: Alanine Aminotransferase 16 U/L (6-35); Alkaline Phosphatase 84 U/L (38-126); Anion Gap 6 mmol/L (4-12); Aspartate Amino Transferase 71 U/L (14-36); Bilirubin,Total 0.5 mg/dL (0.2-1.3); Blood Urea Nitrogen 15 mg/dL (7-17); Carbon Dioxide 30 mmol/L (22-30); Chloride 105 mmol/L (98-107); Estimated Glomerular Filt Rate > 60; Glucose 98 mg/dL (65-110); Potassium 4.8 mmol/L (3.4-5.0); Sodium 141 mmol/L (137-145)
[2024-11-04 12:55] LABS: Hemoglobin A1C 5.4 % (<5.7)
== END 2024-11-04 09:19 | disposition home or self-care (01) ==
LOC: ANHGOSHLAB 09:19
PROVIDERS: PCP Family Medicine; Visit Provider Family Medicine
DX: I48.0 Paroxysmal atrial fibrillation (principal); E78.5 Hyperlipidemia, unspecified; R73.01 Impaired fasting glucose; R73.03 Prediabetes; Z79.01 Long term (current) use of anticoagulants
CPT/HCPCS: 36415; 80053; 83036; 84443

== ENCOUNTER 2025-04-03 07:46 | Outpatient (CLI) | payer MEDICARE, SELFPAY ==
--- OUTSIDE RECORDS SUMMARY | 2001-07-24 04:30 | XMS_ITS | Continuity of Care Document ---
Author Organization [facility] Address [address] [place] [address] Phone Care Team Providers Care Composite Assembler Name Role Phone Negra, Julio Cesar Unavailable Unavailable Advance Directives Directive Yes / No Effective Date File Name No Information Encounters Encounter Description Practice Location Reason(s) For Visit Diagnoses Date Provider Providers Copied on Encounter [facility], [address], [place], [place], [id number], [place] tel:[phone] [facility] No Information [address] , [address], [place], [address], [place]. tel:[phone] Family History Family Member Type Diagnosis Age At Onset No Information Payers Payer name Insurance type Covered democrat ID Authoriza tion(s) [employer] SOI CI [id number] Social History Type Description Quantity Date Captured Comments Sex Female Smoking Status No Information Chief Complaint And Reason For Visit No Information Reason For Referral Reason For Referral No Information History Of Present Illness Encounter Date Complaint History Of Prese nt Illness No Information Functional Status Date Functional Assessmen t No Information Instructions Date Instruction Additional Infor mation No Information Assessments Type Assessment Date No Information Patient Care Teams Name Effective Dates (start - stop) Status Members No Information
--- NOTE | ~2025-04-03 | MM_ITS ---
EXAMINATION: MM screening [facility] BI w eric HISTORY: Screening TECHNIQUE: Craniocaudal and mediolateral oblique 3-D tomosynthesis images were obtained and synthetic 2-D images were generated. CAD analysis was submitted and interpreted. COMPARISON: Comparison to multiple prior studies sequentially, with oldest reviewed study dated 04/11/2016. BREAST PARENCHYMAL COMPOSITION: Not dense: There are scattered areas of fibroglandular density. FINDINGS: There is no evidence of suspicious mass, calcification, or architectural distortion to suggest malignancy in either breast. There has been no suspicious interval change. IMPRESSION: 1. No mammographic evidence of malignancy. 2. Recommend routine screening mammography in one year. BI-RADS Category 1: Negative Reviewed, dictated and finalized at location B.
--- OUTSIDE RECORDS SUMMARY | 2025-04-03 07:49 | XMS_ITS | Encounter Summary ---
Author Organization [facility] Address [address] [place] [address] Care Team Providers Care Cloth Winding Supervisor Name Role Phone Gardenia Siu MD Primary Care Provider Encounter Details Date Type Department Care Team (Late st Contact Info) Description 11/04/2024 Orders Only [facility] Information Management [address] [place] [phone] Scanning, Provider Social History Tobacco Use Types Packs/Day Years Used Date Smoking Tobacco: Never Smokeless Tobacco: Never Alcohol Use Standard Drinks/Week Comments Not Currently 0 (1 standard drink = 0.6 oz pur e alcohol) Comments Unknown Sex and Gender Information Value Date Recorded Sex Assigned at Not on file Legal Sex Female 10:24 PM BODY SHOP MECHANIC Gender Identity Female 07/13/2021 9:40 PM BODY SHOP MECHANIC Sexual Orientation Straight 07/13/2021 9: 40 PM BODY SHOP MECHANIC documented as of this encounter Plan of Treatment Not on file documented as of this encounter Procedures Procedure Name Priority Date/Time Associated Diagnosis Comments SCAN - LABS 11/04/2024 documented in this encounter Results * SCAN - LABS (11/04/2024) us Provider Scanning Final Result documented in this encounter Visit Diagnoses Not on filedocumented in this encounter Care Teams Cloth Winding Supervisor Relationship Specialty Start Date End Date Gardenia Siu MD PCP - General Family Practice 04/17/22 documented as of this encounter
--- OUTSIDE RECORDS SUMMARY | 2025-04-03 07:49 | XMS_ITS | Clinical Summary ---
Author Organization [facility] [place] [address] Address [address] [place] [address] Care Team Providers Care Retort Press Operator Name Role Phone Gardenia Siu MD Primary Care Provider Allergies No known active allergies Medications levothyroxine (SYNTHROID) 88 mcg tablet Take 1 tablet (88 mcg total) by mouth early childhood education worker before breakfast Active atorvastatin (LIPITOR) 20 mg tablet Take 1 tablet (20 mg total) by mouth nightly 021 Active acetaminophen ER (TYLENOL) 650 mg 8 hr tablet Take 1 tablet (650 mg total) by mouth every 8 (eight) hours as needed for pain Active cyanocobalamin (vitamin B-12) 1,000 mcg tabletIndications: Prevention of Vitamin B12 Deficiency Take 1 tablet (1,000 mcg total) by mouth daily Active loratadine (CLARITIN) 10 mg tablet Take 1 tablet (10 mg total) by mouth daily Active ergocalciferol (VITAMIN D) 50,000 unit capsule TAKE 1 CAPSULE BY MOUTH WEEKLY 024 Active Xarelto 20 mg tabletIndications: Chronic anticoagulation TAKE 1 TABLET(20 MG) BY MOUTH DAILY 90 tablet 3 024 Active BIOTIN ORAL Take by mouth Acti ve amoxicillin 500 mg capsule TAKE 4 CAPSULES BY MOUTH 1 HOUR BEFORE DENTAL APPOINTMENT 024 Active sotaloL (BETAPACE) 80 mg tabletIndications: Paroxysmal atrial fibrillation (HCC) TAKE 1 TABLET BY MOUTH TWICE DAILY 180 tablet 3 025 Active sotaloL (BETAPACE) 80 mg tabletIndications: Paroxysmal atrial fibrillation (HCC) TAKE 1 TABLET(80 MG) BY MOUTH TWICE DAILY 180 tablet 3 024 2024 Discontinued Active Problems Problem Noted Date Diagnosed Date Coronary artery disease invo lving [place] coronary artery of [place] heart without angina pectoris 09/29/2024 Dyslipidemia 09/29/2024 Abnormal EKG 06/18/2024 Chest tightness 06/18/2024 Recurrent chest pain 07/14/2021 Encounter for monitoring sotalol therapy 021 Diastolic dysfunction 12/25/2019 ROXANNA (obstructive sleep apnea) 12/25/2019 Chronic anticoagulation 12/25/2019 Paroxysmal atrial fibrillation 12/25/2019 Knee pain 07/15/2014 Encounters Date Type Department Care Team Description 03/20/2025 10:30 AM CDT Office Visit [facility] [address] [facility] [address] [place] [address] Thien Rascon MD Coronary artery disease involving [place] coronary artery of [place] heart without angina pectoris (Primary Dx); Paroxysmal atrial fibrillation (HCC); Chronic anticoagulation; ROXANNA (obstructive sleep apnea); Encounter for monitoring sotalol therapy; Hyperlipidemia LDL goal <70 from Last 3 Months Surgical History Surgery Date Site/Laterality Comments GALLBLADDER SURGERY 07/02/1985 - 07/01/1986 TUBAL LIGATION 07/02/1982 - 07/01/1983 HERNIA REPAIR 05/02/2003 - 05/31/2003 REPLACEMENT TOTAL KNEE 07/02/2003 - 08/01/2003 CHOLECYSTECTOMY 05/02/1984 - 05/31/1984 JOINT REPLACEMENT Medical History Medical History Date Comments Atrial fibrillation (HCC) Thyroid disease Sleep apnea Arthritis Family [...] on file Legal Sex Female 10:24 PM CHIEF OF VITAL STATISTICS Gender Identity Female 07/13/2021 9:40 PM CHIEF OF VITAL STATISTICS Sexual Orientation Straight 07/13/2021 9: 40 PM CHIEF OF VITAL STATISTICS Obstetrics History Last Filed Vital Signs Vital Sign Reading Time Taken Comments Blood Pressure 128/70 03/20/2025 10:27 AM CDT Pulse 54 03/20/2025 10:27 AM CDT Temperature - - Respiratory Rate - - Oxygen Saturation 97% 03/20/2025 10: 27 AM CDT Inhaled Oxygen Concentration - - Weight 108.6 kg (239 lb 6.4 oz) 025 10:27 AM CDT Height 172.7 cm (5' 8) 03/20/2025 10:2 7 AM CDT Body Mass Index 36.4 03/20/2025 10:27 AM CDT Plan of Treatment Health Maintenance Due Date Last Done Comments Breast Cancer Screening-Mammogram 1950 Colon Cancer Screening-Colonoscopy 1950 Depression Screening 1950 Fall Risk Assessment 1950 Hepatitis C Screening 1950 Osteoporosis Screening-Bone Density Scan 1950 DTaP/Tdap/Td Vaccine (1 - Tdap) 09/08/1962 Hepatitis B Screening 09/08/1969 Pneumococcal vaccine 65+ (1 of 1 - PCV) 09/08/2001 Zoster Vaccine (1 of 2) 09/08/2001 Well Visit 65+ 09/08/2016 Influenza Vaccine (#1) 2025 04/25/2019 Procedures Procedure Name Priority Date/Time Associated Diagnosis Comments ELECTROCARDIOGRAM REPORT Routine 025 11:39 AM CDT Coronary artery disease involving [place] coronary artery of [place] heart without angina pectoris from Last 3 Months Results * Electrocardiogram Report (03/20/2025 11:39 AM CDT) us Thien Rascon MD ECG ORDERABLES Final Res ult from Last 3 Months Insurance [employer] Member Subscriber Plan / Payer (Ef fective 2021-Present) Name:Liz Overton Relation to Subscriber:Self Name:Liz Overton Payer ID:[id number] (NAIC) Type:[employer] Address: [place] [phone] Member Subscriber Plan / Payer (Ef fective 2023-Present) Name:Liz Overton Relation to Subscriber:Self Name:Liz Overton Payer ID:[id number] (NAIC) Type:[employer] Address: [place] [phone] Care Teams Retort Press Operator Relationship Specialty Start Date End Date Gardenia Siu MD PCP - General Family Practice 04/17/22
--- OUTSIDE RECORDS SUMMARY | 2025-04-03 07:49 | XMS_ITS | Encounter Summary ---
Author Organization [facility] Address [address] [place] [address] Care Team Providers Care Energy Trading Analyst Name Role Phone Gardenia Siu MD Primary Care Provider Encounter Details Date Type Department Care Team (Late st Contact Info) Description 07/07/2024 Orders Only [facility] [place] Health Information Management [address] [place] [id number] Scanning, Provider Social History Tobacco Use Types Packs/Day Years Used Date Smoking Tobacco: Never Smokeless Tobacco: Never Alcohol Use Standard Drinks/Week Comments Not Currently 0 (1 standard drink = 0.6 oz pur e alcohol) Comments Unknown Sex and Gender Information Value Date Recorded Sex Assigned at Not on file Legal Sex Female 10:24 PM ARRANGING FUNERAL DIRECTOR Gender Identity Female 07/13/2021 9:40 PM ARRANGING FUNERAL DIRECTOR Sexual Orientation Straight 07/13/2021 9: 40 PM ARRANGING FUNERAL DIRECTOR documented as of this encounter Plan of Treatment Not on file documented as of this encounter Procedures Procedure Name Priority Date/Time Associated Diagnosis Comments CARDIOLOGY DOCUMENT SCAN 07/07/2024 documented in this encounter Results * Cardiology Document Scan (07/07/2024) Anatomical Region Laterality Modality Other us Provider Scanning CV CARDIAC SERVICES PROCEDURES Final Result documented in this encounter Visit Diagnoses Not on filedocumented in this encounter Care Teams Energy Trading Analyst Relationship Specialty Start Date End Date Gardenia Siu MD PCP - General Family Practice 04/17/22 documented as of this encounter
== END 2025-04-03 07:47 | disposition home or self-care (01) ==
LOC: ANHFOHIMG 07:47
PROVIDERS: PCP Family Medicine; Visit Provider Nurse Practitioner
DX: Z12.31 Encounter for screening mammogram for malignant neoplasm of breast (principal)
CPT/HCPCS: 77063; 77067

== ENCOUNTER 2025-06-11 09:17 | Outpatient (CLI) | payer MEDICARE, SELFPAY ==
[2025-06-11 18:56] LABS: Alanine Aminotransferase 16 U/L (6-35); Albumin Level 3.9 g/dL (3.5-5.1); Alkaline Phosphatase 82 U/L (38-126); Anion Gap 1 mmol/L (4-12); Aspartate Amino Transferase 23 U/L (14-36); Bilirubin,Total 0.5 mg/dL (0.2-1.3); Blood Urea Nitrogen 10 mg/dL (7-17); Calcium 9.0 mg/dL (8.4-10.2); Carbon Dioxide 31 mmol/L (22-30); Chloride 106 mmol/L (98-107); Cholesterol 137 mg/dL (0-200); Estimated Glomerular Filt Rate > 60; Glucose 111 mg/dL (65-110); HDL Direct 40 mg/dL; Potassium 4.4 mmol/L (3.4-5.0); Sodium 138 mmol/L (137-145); Total Protein 7.1 g/dL (6.3-8.2); Triglycerides 103 mg/dL (<150)
[2025-06-11 19:05] LABS: Hematocrit 38.8 % (37.0-47.0); Hemoglobin 12.1 g/dL (12.0-15.0); Immature Granulocyte Percent A 0.2 % (0-0.5); Lymphocytes Absolute Auto 1.48 K/mm3 (0.9-3.2); Mean Corpuscular HGB Conc 31.2 g/dl (32-36); Mean Corpuscular Hemoglobin 29.4 pg (26-34); Mean Corpuscular Volume 94.2 fl (80-100); Nucleated Red Blood Cells Absolute Auto 0.000 K/mm3 (0.0-0.012); Nucleated Red Blood Cells Perc 0.0 % (0.0-0.2); Platelet Count Result 209 k/mm3 (150-375); Red Blood Count 4.12 M/mm3 (4.2-5.4); White Blood Count 4.7 K/mm3 (4.5-10.0)
[2025-06-11 19:56] LABS: Vitamin B12 796.0 pg/mL (239-931)
[2025-06-11 20:32] LABS: Thyroid Stimulating Hormone Reflex 2.920 uIU/mL (0.465-4.68)
[2025-06-11 21:29] LABS: Hemoglobin A1C 5.5 % (<5.7)
== END 2025-06-11 09:18 | disposition home or self-care (01) ==
PROVIDERS: PCP Family Medicine; Visit Provider Family Medicine
DX: E78.5 Hyperlipidemia, unspecified (principal); I10 Essential (primary) hypertension; R73.03 Prediabetes; E53.8 Deficiency of other specified B group vitamins; I48.0 Paroxysmal atrial fibrillation; E55.9 Vitamin D deficiency, unspecified
CPT/HCPCS: 36415; 80053; 80061; 82306; 82607; 83036; 84443; 85025